=== PATIENT | female | born 1930 | race Caucasian/White ===

== ENCOUNTER 2016-07-29 12:16 | Inpatient (IN) | payer MEDICARE, OTHER ==
[2016-07-29] MEDS ORDERED: SODIUM CHLORIDE 0.9% 1,000 ML IV STA (13:44)
[2016-07-29 14:04] LABS: Basophils % (A) 0 %; CHCM 34.5; Eosinophils % (A) 0 %; HCT 39.4 % (34.0-46.0); HDW 2.76; HGB 13.3 gm/dL (11.4-16.0); Luc # (Auto) 0.15; Luc % (Auto) 2; Lymphocytes # (A) 0.4 k/uL (1.0-4.8); Lymphocytes % (A) 6 %; MCH 28.6 pg (25.0-35.0); MCHC 33.8 g/dL (31.0-37.0); MCV 84.5 fL (80.0-100.0); Mean Platelet Volume 7.4; Monocytes # (A) 0.4 k/uL (0-1.0); Monocytes % (A) 5 %; Neutrophils # (A) 5.7 k/uL (1.3-7.7); Neutrophils % (A) 86 %; RBC 4.67 m/uL (3.80-5.40); RDW 14.3 % (11.5-15.5); WBC 6.7 k/uL (3.8-10.6); WBC (Perox) 6.78
[2016-07-29 14:08] LABS: ALT 52 U/L (9-52); AST 43 U/L (14-36); Alkaline Phosphatase 69 U/L (38-126); Anion Gap 12 mmol/L; Blood Urea Nitrogen 17 mg/dL (7-17); Calcium 8.9 mg/dL (8.4-10.2); Carbon Dioxide 25 mmol/L (22-30); Chloride 96 mmol/L (98-107); Glucose 140 mg/dL (74-99); Non-African American GFR(MDRD) >60 (>60 ml/min/1.73 sqM); Potassium 3.8 mmol/L (3.5-5.1); Sodium 133 mmol/L (137-145); Total Bilirubin 1.5 mg/dL (0.2-1.3); Total Protein 6.8 g/dL (6.3-8.2)
--- NOTE | 2016-07-29 14:28 | CT ---
EXAMINATION TYPE: CT brain wo con DATE OF EXAM: 07/29/2016 2:19 PM COMPARISON: NONE HISTORY: Fall this morning, altered mental status CT DLP: 1036 mGycm Automated exposure control for dose reduction was used. FINDINGS: There is no acute intracranial hemorrhage, mass effect, or midline shift identified. Changes of chron ic sinusitis and vascular calcifications noted. There is extensive degenerative change. Periventricular low attenuation compatible with remote microv ascular ischemia. Calvarium intact. Hyperostosis noted. IMPRESSION: No acute intracranial hemorrhage, mass effect, or midline shift is seen. Severe sinusitis.
--- NOTE | 2016-07-29 14:39 | XR ---
EXAMINATION TYPE: XR chest 2V DATE OF EXAM: 07/29/2016 2:33 PM COMPARISON: 11/16/2014 TECHNIQUE: PA and lateral views submitted. HISTORY: Pain, dizziness FINDINGS: Coarsened interstitium and cardiomegaly are stable. Arthropathy of the shoulders and diffuse osteopen ia noted. No pneumothorax. Nonspecific subsegmental changes left lung base. Hypertrophic and degenerative nash e of the spine noted. IMPRESSION: 1. Correlate for chronic interstitial lung disease or pulmonary fibrosis 2. Left basilar atelectasis favored over infiltrate.
--- NOTE | 2016-07-29 14:41 | XR ---
EXAM TYPE: LUMBAR SPINE X RAY SERIES COMPARISON: NONE HISTORY: Pain TECHNIQUE: 4 views are submitted. FINDINGS: Diffuse osteopenia is seen with severe degenerative disc disease L-1-L2 and moderate changes at L2-L3 , L4-5 and L5-S1. Facet arthropathy at all levels with most marked changes seen at L4-5 and L5-S1 with a grade 1 crystal listhesis of L4 on L5. No compression deformities. Vascular calcification of the aorta noted. IMPRESSION: 1. Moderate severe multilevel degenerative disc disease and facet arthropathy with grade 1 anterolist hesis L4 on L5.
[2016-07-29 15:14] LABS: Appearance,Urine Cloudy (Clear); Bacteria,Urine Rare /hpf; Bilirubin,Urine Negative (Negative); Glucose,Urine (UA) Negative (Negative); Ketones,Urine Negative (Negative); Leukocyte Esterase,Urine Negative (Negative); Nitrite,Urine Negative (Negative); Particle Count 1991; Protein,Urine Trace (Negative); RBC,Urine 3 /hpf (0-5); Specific Gravity,Urine 1.014 (1.001-1.035); Squamous Epithelial Cell,Urine 3 /hpf (0-4); UA Billing (MACRO vs. MICRO) MICRO; WBC,Urine 2 /hpf (0-5)
--- NOTE | 2016-07-29 17:43 | ED ---
Dizziness HPI - General Chief Complaint: Dizziness Stated Complaint: Fall Time Seen by Provider: 07/29/16 13:36 Source: patient Mode of arrival: ambulatory Limitations: no limitations - History of Present Illness Initial Comments: Complaining about being dizzy for the last 3 days she fell this morning trying to move inside her house she also fell last night and now last night she fell she landed on her buttocks complaining about pain in the tailbone area at this dizziness is worse with moving as long as she states in the bed she is fine her feet when she tries to get up this with the dizziness kicks in also complaining about the headache she had a headache earlier today but now it has resolved no chest pain or shortness of breath no abdominal pain no nausea no vomiting, she does have a history of atrial fibrillation - Related Data Home Medications Medication Instructions Recorded Confirmed Albuterol Inhaler [Ventolin 2 puff INHALATION RT-Q6H PRN 11/16/14 07/29/16 Inhaler] Albuterol Nebulized [Ventolin 2.5 mg INHALATION RT-Q6H PRN 11/16/14 07/29/16 Nebulized] Montelukast [Singulair] 10 mg PO DAILY 11/16/14 07/29/16 Aspirin 81 mg PO DAILY 07/29/16 07/29/16 Hydrochlorothiazide [Hydrodiuril] 25 mg PO DAILY 07/29/16 07/29/16 Losartan Potassium [Cozaar] 100 mg PO DAILY 07/29/16 07/29/16 Nitroglycerin Sl Tabs [Nitrostat] 0.4 mg SUBLINGUAL Q5M PRN 07/29/16 07/29/16 Simvastatin [Zocor] 40 mg PO HS 07/29/16 07/29/16 Warfarin Sodium [Coumadin] 4 mg PO HS 07/29/16 07/29/16 Allergies Allergy/AdvReac Type Severity Reaction Status Date / Time Iodinated Contrast Media - Allergy Severe Rash/Hives Verified 07/29/16 13:10 Oral and Penicillins Allergy Unknown Verified 07/29/16 13:10 Review of Systems ROS Statement: Those systems with pertinent positive or pertinent negative responses have been documented in the HPI. ROS Other: All systems not noted in ROS Statement are negative. Past Medical History Past Medical History: COPD, Deep Vein Thrombosis (DVT), Eye Disorder, Hyperlipidemia, Hypertension, Myocardial Infarction (MO), Osteoarthritis (OA), Pneumonia, Pulmonary Embolus (PE) Additional Past Medical History / Comment(s): 6-3-15 ADMITTED TO [facility] WITH SOB- CHF. macular degeneration NEERU eyes,cataract rt eye, heart murmur,silent mi, rheumatic fever, eczema,psoriases, jannet age 20, polynePhritis age 7. after rt knee replacement and choley sx pt had dvt and pe.bronchitis Last Myocardial Infarction Date:: unk History of Any Multi-Drug Resistant Organisms: None Reported Past Surgical History: Cholecystectomy, Joint Replacement, Tonsillectomy Additional Past Surgical History / Comment(s): lt eye cataract removed has lens implant, after choley done had ercp(small tar) had neeru stents since removed, rt breast bx was positive for ca had lumpectomy and raditaion tx, d&c, total hysterectomy, neeru knee replacements. Past Anesthesia/Blood Transfusion Reactions: No Reported Reaction Past Psychological History: No Psychological Hx Reported Smoking Status: Former smoker Past Alcohol Use History: None Reported Additional Past Alcohol Use History / Comment(s): smoked 3-4 years but quit 1969 Past Drug Use History: None Reported - Past Family History Sister(s) Family Medical History: Cancer Additional Family Medical History / Comment(s): colon ca Father Family Medical History: CVA/TIA Additional Family Medical History / Comment(s): had a stroke in his 40's Mother Additional Family Medical History / Comment(s): glaucoma General Exam - General Exam Comments Initial Comments: General: The patient is awake and alert, in no distress, and does not appear acutely ill. Does look pale and tired him a GCS is 15 Skin: Skin is warm and dry and no rashes or lesions are noted. Eye: Pupils are equal, round and reactive to light, extra-ocular movements are intact; there is normal conjunctiva bilaterally. Ears, nose, mouth and throat: There are moist mucous membranes and no oral lesions. Exam is compatible with sinusitis Neck: The neck is supple, there is no tenderness Cardiovascular: There is a regular rate and rhythm. No murmur, rub or gallop is appreciated. Respiratory: To auscultation bilateral, decrease breath sounds bilaterally Gastrointestinal: Soft, non-distended, non-tender abdomen without masses or organomegaly noted. There is no rebound or guarding present. Bowel sounds are unremarkable. Back: There is no tenderness to palpation in the midline. There is no obvious deformity. Musculoskeletal: Normal ROM, no tenderness, There is no pedal edema. There is no calf tenderness or swelling. No cords were appreciated. Neurological: CN II-XII intact, Cranial nerves III through XII are intact. There are no obvious motor or sensory deficits. Coordination appears grossly intact. Speech is normal. Psychiatric: Cooperative, appropriate mood & affect, normal judgment. Limitations: no limitations Course Vital Signs 07/29/16 07/29/16 07/29/16 12:26 13:08 13:30 Temperature 98.0 F Pulse Rate 74 73 74 Pulse Rate [ Right Sitting] Pulse Rate [ Right Standing] Pulse Rate [ Right Supine] Respiratory 18 20 20 Rate Blood Pressure 170/77 143/74 148/76 Blood Pressure [Left Arm Sitting] Blood Pressure [Left Arm Standing] Blood Pressure [Left Arm Supine] O2 Sat by Pulse 98 98 98 Oximetry 07/29/16 07/29/16 07/29/16 14:00 14:49 16:00 Temperature Pulse Rate 73 67 Pulse Rate [ 87 Right Sitting] Pulse Rate [ 86 Right Standing] Pulse Rate [ 80 Right Supine] Respiratory 20 18 18 Rate Blood Pressure 143/74 163/67 Blood Pressure 139/69 [Left Arm Sitting] Blood Pressure 126/62 [Left Arm Standing] Blood Pressure 160/78 [Left Arm Supine] O2 Sat by Pulse 98 97 98 Oximetry EKG Findings - EKG Comments: EKG Findings:: EKG is atrial fibrillation ventricular rate is 80 OH interval is , QRS duration is 108 QT/QTc is 356/410 review of this EKG confirms atrial fibrillation, otherwise no ST elevation or ST depression noticed Medical Decision Making - Lab Data Result diagrams: 07/29/16 13:00 07/29/16 13:00 Lab Results 07/29/16 07/29/16 07/29/16 Range/Units 13:00 13:00 13:00 WBC 6.7 (3.8-10.6) k/uL RBC 4.67 (3.80-5.40) m/uL Hgb 13.3 (11.4-16.0) gm/dL Hct 39.4 (34.0-46.0) % MCV 84.5 (80.0-100.0) fL MCH 28.6 (25.0-35.0) pg MCHC 33.8 (31.0-37.0) g/dL RDW 14.3 (11.5-15.5) % Plt Count 551 H (150-450) k/uL Neutrophils % 86 % Lymphocytes % 6 % Monocytes % 5 % Eosinophils % 0 % Basophils % 0 % Neutrophils # 5.7 (1.3-7.7) k/uL Lymphocytes # 0.4 L (1.0-4.8) k/uL Monocytes # 0.4 (0-1.0) k/uL Eosinophils # 0.0 (0-0.7) k/uL Basophils # 0.0 (0-0.2) k/uL Sodium 133 L (137-145) mmol/L Potassium 3.8 (3.5-5.1) mmol/L Chloride 96 L (98-107) mmol/L Carbon Dioxide 25 (22-30) mmol/L Anion Gap 12 mmol/L BUN 17 (7-17) mg/dL Creatinine 0.81 (0.52-1.04) mg/dL Est GFR (MDRD) Af Amer >60 (>60 ml/min/1.73 sqM) Est GFR (MDRD) Non-Af >60 (>60 ml/min/1.73 sqM) Glucose 140 H (74-99) mg/dL Calcium 8.9 (8.4-10.2) mg/dL Total Bilirubin 1.5 H (0.2-1.3) mg/dL AST 43 H (14-36) U/L ALT 52 (9-52) U/L Alkaline Phosphatase 69 (38-126) U/L Troponin I 0.017 (0.000-0.034) ng/mL Total Protein 6.8 (6.3-8.2) g/dL Albumin 4.0 (3.5-5.0) g/dL Urine Color Urine Appearance (Clear) Urine pH (5.0-8.0) Ur Specific Butler (1.001-1.035) Urine Protein (Negative) Urine Glucose (UA) (Negative) Urine Ketones (Negative) Urine Blood (Negative) Urine Nitrate (Negative) Urine Bilirubin (Negative) Urine Urobilinogen (<2.0) mg/dL Ur Leukocyte Esterase (Negative) Urine RBC (0-5) /hpf Urine WBC (0-5) /hpf Ur Squamous Epith Cells (0-4) /hpf Urine Bacteria (None) /hpf 07/29/16 Range/Units 14:58 WBC (3.8-10.6) k/uL RBC (3.80-5.40) m/uL Hgb (11.4-16.0) gm/dL Hct (34.0-46.0) % MCV (80.0-100.0) fL MCH (25.0-35.0) pg MCHC (31.0-37.0) g/dL RDW (11.5-15.5) % Plt Count (150-450) k/uL Neutrophils % % Lymphocytes % % Monocytes % % Eosinophils % % Basophils % % Neutrophils # (1.3-7.7) k/uL Lymphocytes # (1.0-4.8) k/uL Monocytes # (0-1.0) k/uL Eosinophils # (0-0.7) k/uL Basophils # (0-0.2) k/uL Sodium (137-145) mmol/L Potassium (3.5-5.1) mmol/L Chloride (98-107) mmol/L Carbon Dioxide (22-30) mmol/L Anion Gap mmol/L BUN (7-17) mg/dL Creatinine (0.52-1.04) mg/dL Est GFR (MDRD) Af Amer (>60 ml/min/1.73 sqM) Est GFR (MDRD) Non-Af (>60 ml/min/1.73 sqM) Glucose (74-99) mg/dL Calcium (8.4-10.2) mg/dL Total Bilirubin (0.2-1.3) mg/dL AST (14-36) U/L ALT (9-52) U/L Alkaline Phosphatase (38-126) U/L Troponin I (0.000-0.034) ng/mL Total Protein (6.3-8.2) g/dL Albumin (3.5-5.0) g/dL Urine Color Yellow Urine Appearance Cloudy H (Clear) Urine pH 6.0 (5.0-8.0) Ur Specific Butler 1.014 (1.001-1.035) Urine Protein Trace H (Negative) Urine Glucose (UA) Negative (Negative) Urine Ketones Negative (Negative) Urine Blood Negative (Negative) Urine Nitrate Negative (Negative) Urine Bilirubin Negative (Negative) Urine Urobilinogen 3.0 (<2.0) mg/dL Ur Leukocyte Esterase Negative (Negative) Urine RBC 3 (0-5) /hpf Urine WBC 2 (0-5) /hpf Ur Squamous Epith Cells 3 (0-4) /hpf Urine Bacteria Rare H (None) /hpf Disposition Clinical Impression: Dizziness, Orthostatic hypotension, Sinusitis Disposition: ADMITTED IP TO THIS [facility] Condition: Good Referrals: Иван Chaparro MD [Primary Care Provider] - 1-2 days
[2016-07-29] MEDS ORDERED: NALOXONE 0.4 MG/ML 1 ML VIAL IV PRN (17:46)
[2016-07-29] MEDS ORDERED: ACETAMINOPHEN TAB 325 MG TAB PO PRN (17:46)
[2016-07-29] MEDS ORDERED: NITROGLYCERIN SL TABS 0.4 MG TAB SUBLINGUAL PRN (17:49)
[2016-07-29] MEDS ORDERED: ALBUTEROL INHALER 60 PUFF/8 GM INHALER INHALATION PRN (17:49)
[2016-07-29] MEDS ORDERED: LEVOFLOXACIN 500 MG TAB PO STA (17:51)
[2016-07-29] MEDS ORDERED: MECLIZINE 12.5 MG TAB PO STA (17:52)
[2016-07-29] MEDS ORDERED: MECLIZINE 12.5 MG TAB PO PRN (17:52)
[2016-07-29 21:08] LABS: INR 2.2 (<1.1); Prothrombin Time 20.9 sec (9.0-12.0)
[2016-07-29] MEDS ORDERED: ONDANSETRON 4 MG/2 ML VIAL IVP PRN (21:29)
[2016-07-29] MEDS: WARFARIN 2 MG TAB PO SCH (22:58)
[2016-07-29] MEDS: ATORVASTATIN 20 MG TAB PO SCH (23:00)
--- NOTE | 2016-07-30 07:42 | HP ---
DATE OF ADMISSION: CHIEF COMPLAINT: Weakness. This is an 86-year-old white female severely weak and had several episodes of vomiting and that she was unable to get out of bed. ( ) She was placed in the emergency room accordingly. After evaluation, they found that she was in A. fib with controlled rate and a questionable infiltrate in the left lower lung. She also had mild elevation of blood sugar of 140 and a normal urine. She has a past medical history of allergies to IODINE, POTASSIUM and PENICILLIN. Her medications include: 1. Coumadin 4 mg a day. 2. Fish oil 1000. 3. Aspirin 81. 4. Hydrochlorothiazide 25. 5. Losartan 100. 6. Simvastatin 40 mg. 7. Ventolin inhaler up to 4 times a day. 8. She takes Singulair 10. MEDICAL HISTORY: She has a long-standing history of COPD along with DVT, macular degeneration, hyperlipidemia, hypertension, osteoarthritis, pulmonary emboli and DVT x2. In 2014 she was admitted with shortness of breath and had a stent placed, coronary artery stent placed and was followed up by Dr. Brown. Surgical history is that of bilateral cataracts, right knee surgery, cholecystectomy. She also has had a history of many years ago of pulmonary fibrosis, which has actually resolved. She also has a past surgical history of also having had a tonsillectomy. She had a positive breast lumpectomy for CA of the breast and she had radiation followup including mammograms and PET scan that were negative. She is . She has a history of smoking for 3 to 4 years, but she stopped actually in 1968. There is a strong family history of cancer. REVIEW OF SYSTEMS: CARDIOPULMONARY: She has had some minimal shortness of breath, weakness. No chest pain, orthopnea. No paroxysmal nocturnal dyspnea. GI: No hematemesis. No hematochezia. No constipation. No diarrhea. GENITOURINARY: Within normal limits. NEUROMUSCULAR: Just basic aches and pains, but she is more hindered by her problem with her eyes. LABS: CBC, complete metabolic profile are within normal limits. EKG does show atrial fib now. By history, ( ) there is some history of atrial fib. I do not have anything immediately in front of me that ( ) that, but I will follow up with Dr. Brown. She does have some atrial fibrillation on her EKG. Chest x-ray does show a left basilar atelectasis versus possible ( ) history of chronic interstitial pneumonitis. ASSESSMENT: 1. Acute weakness of questionable etiology. 2. Questionable pneumonia. 3. Pulmonary fibrosis. 4. Atrial fibrillation, questionable new versus old. Will consult Dr. Brown. 5. History of coronary artery disease with stent placement back in November 2014. 6. Previous pulmonary emboli with deep venous thrombosis x2. 7. Severe macular degeneration. The patient is blind. 8. Hypertension, which has been stable. 9. Hyperlipidemia. 10. ( ) chronic obstructive pulmonary disease. ( ) Please refer to my orders.
[2016-07-30] MEDS: LOSARTAN 50 MG TAB PO SCH (08:55)
[2016-07-30] MEDS: ASPIRIN 81 MG CHEW PO SCH (08:55)
[2016-07-30] MEDS: MONTELUKAST 10 MG TAB PO SCH (08:56)
[2016-07-30] MEDS: HYDROCHLOROTHIAZIDE 25 MG TAB PO SCH (11:05)
--- NOTE | 2016-07-30 12:51 | P.CRDCN ---
History of Present Illness Consult date: 07/30/16 Chief complaint: Weakness History of present illness: This is a pleasant 86-year-old female patient who sees Dr. Estrada as an outpatient with a past medical history significant for coronary artery disease and prior coronary artery stenting, chronic respiratory failure, chronic obstructive pulmonary disease, history of DVT/PE, as well as multiple comorbid conditions was admitted to the hospital because she was not feeling well. The patient has been feeling fatigued and tired and she has been falling a lot lately. She stated that no syncope associated was a folding. She does not recall having any feeling of dizziness or lightheadedness. The patient was diagnosed with a pneumonia and she was started on antibiotic. We get involved in the care of the patient because an EKG was performed and showed atrial fibrillation/atrial flutter with controlled heart rate. The patient is not on any AV marly justen agents. She is on anticoagulation but that is for the PE/DVT. On physical examination I was able to hear a significant murmur consistent with aortic stenosis murmur. At this point and in view of the controlled heart rate I would not recommend starting the patient on any AV marly justen agents. The heart rate has been under good control with the A. fib. She is on anticoagulation was, in which we will continue. I will obtain an echocardiogram was Doppler to assess the LV function and to assess for severity of the aortic stenosis. Past Medical History Past Medical History: COPD, Deep Vein Thrombosis (DVT), Eye Disorder, Hyperlipidemia, Hypertension, Myocardial Infarction (CO), Osteoarthritis (OA), Pneumonia, Pulmonary Embolus (PE) Additional Past Medical History / Comment(s): CHF, patient denies valve replacement so stents placed. macular degeneration NEERU eyes,cataract rt eye, heart murmur,silent mi, rheumatic fever, eczema,psoriases, mono age 20, polynePhritis age 7. Last Myocardial Infarction Date:: unk History of Any Multi-Drug Resistant Organisms: None Reported Past Surgical History: Cholecystectomy, Joint Replacement, Tonsillectomy Additional Past Surgical History / Comment(s): lt eye cataract removed has lens implant, after alexa done had ercp(small tar) had neeru stents since removed, rt breast bx was positive for ca had lumpectomy and raditaion tx, d&c, total hysterectomy, neeru knee replacements. Past Anesthesia/Blood Transfusion Reactions: No Reported Reaction Past Psychological History: No Psychological Hx Reported Smoking Status: Former smoker Past Alcohol Use History: None Reported Additional Past Alcohol Use History / Comment(s): smoked 3-4 years but quit 1969 Past Drug Use History: None Reported - Past Family History Sister(s) Family Medical History: Cancer Additional Family Medical History / Comment(s): colon ca Father Family Medical History: CVA/TIA Additional Family Medical History / Comment(s): had a stroke in his 40's Mother Additional Family Medical History / Comment(s): glaucoma Medications and Allergies Home Medications Medication Instructions Recorded Confirmed Type Albuterol Inhaler [Ventolin 2 puff INHALATION RT-Q6H PRN 11/16/14 07/29/16 History Inhaler] Albuterol Nebulized [Ventolin 2.5 mg INHALATION RT-Q6H PRN 11/16/14 07/29/16 History Nebulized] Montelukast [Singulair] 10 mg PO DAILY 11/16/14 07/29/16 History Aspirin 81 mg PO DAILY 07/29/16 07/29/16 History Hydrochlorothiazide [Hydrodiuril] 25 mg PO DAILY 07/29/16 07/29/16 History Losartan Potassium [Cozaar] 100 mg PO DAILY 07/29/16 07/29/16 History Nitroglycerin Sl Tabs [Nitrostat] 0.4 mg SUBLINGUAL Q5M PRN 07/29/16 07/29/16 History Simvastatin [Zocor] 40 mg PO HS 07/29/16 07/29/16 History Warfarin Sodium [Coumadin] 4 mg PO HS 07/29/16 07/29/16 History Allergies Allergy/AdvReac Type Severity Reaction Status Date / Time Iodinated Contrast Media - Allergy Severe Rash/Hives Verified 07/29/16 13:10 Oral and Penicillins Allergy Unknown Verified 07/29/16 13:10 Physical Exam Vitals: Vital Signs Temp Pulse Pulse Pulse Resp BP BP 07/30/16 08:52 07/30/16 07:00 97.1 F L 85 18 07/29/16 23:00 97.8 F 89 16 07/29/16 20:00 98.5 F 90 16 158/94 07/29/16 18:44 98.1 F 07/29/16 18:42 82 18 138/64 BP Pulse Ox 07/30/16 08:52 95 07/30/16 07:00 124/72 95 07/29/16 23:00 154/78 94 L 07/29/16 20:00 93 L 07/29/16 18:44 07/29/16 18:42 98 Intake and Output 07/29/16 07/30/16 07/30/16 22:59 06:59 14:59 Other: Voiding Method Bedside Commode Bedside Commode # Voids 1 1 - Constitutional General appearance: no acute distress - Respiratory Respiratory: bilateral: diminished - Cardiovascular Rhythm: irregularly irregular Heart sounds: normal: S1, S2 Abnormal Heart Sounds: systolic murmur Results 07/29/16 13:00 07/29/16 13:00 Current Medications Generic Name Dose Route Start Last Admin Trade Name Freq PRN Reason Stop Dose Admin Acetaminophen 650 mg 07/29/16 17:46 Tylenol Tab PO Q6HR PRN Mild Pain or Fever > 100.5 Albuterol Sulfate 2.5 mg 07/29/16 17:49 Ventolin Nebulized INHALATION RT-Q6H PRN Shortness Of Breath Aspirin 81 mg 07/30/16 09:00 07/30/16 08:55 Aspirin PO 81 mg DAILY SANDRA Administration Atorvastatin Calcium 20 mg 07/29/16 21:00 07/29/16 23:00 Lipitor PO 20 mg HS SANDRA Administration Hydrochlorothiazide 25 mg 07/30/16 09:00 07/30/16 11:05 Hydrodiuril PO Not Given DAILY SANDRA Levofloxacin 500 mg 07/30/16 18:00 Levaquin PO Q24H SANDRA Losartan Potassium 100 mg 07/30/16 09:00 07/30/16 08:55 Cozaar PO 100 mg DAILY SANDRA Administration Meclizine HCl 12.5 mg 07/29/16 17:52 Antivert PO BID PRN Vertigo Montelukast Sodium 10 mg 07/30/16 09:00 07/30/16 08:56 Singulair PO 10 mg DAILY SANDRA Administration Naloxone HCl 0.2 mg 07/29/16 17:46 Narcan IV Q2M PRN Opioid Reversal Nitroglycerin 0.4 mg 07/29/16 17:49 Nitrostat SUBLINGUAL Q5M PRN Chest Pain Ondansetron HCl 4 mg 07/29/16 21:29 Zofran IVP Q8HR PRN Nausea And Vomiting Warfarin Sodium 4 mg 07/29/16 21:45 07/29/16 22:58 Coumadin PO 4 mg HS SANDRA Administration Intake and Output 07/29/16 07/30/16 07/30/16 22:59 06:59 14:59 Other: Voiding Method Bedside Commode Bedside Commode # Voids 1 1 Assessment and Plan Plan: Assessment #1 generalized weakness and fatigue #2 recurrent falling #3 atrial fibrillation with controlled heart rate #4 coronary artery disease with prior coronary artery stenting #5 history of DVT/PE Plan #1 hold on any AV marly justen agents #2 monitor the heart rate and rule out any sinus pauses as an etiology for her falling #3 obtain an echocardiogram was Doppler to assess for aortic stenosis #4 continue anticoagulation with Coumadin #5 follow-up with the patient
[2016-07-30] MEDS ORDERED: LEVOFLOXACIN 500 MG TAB PO SCH (18:00)
[2016-07-30] MEDS: ATORVASTATIN 20 MG TAB PO SCH (21:37)
[2016-07-30] MEDS: WARFARIN 2 MG TAB PO SCH (21:37)
[2016-07-31] MEDS: ALBUTEROL NEBULIZED 2.5 MG/3 ML INHALATION PRN (08:17)
[2016-07-31] MEDS: LOSARTAN 50 MG TAB PO SCH (08:51)
[2016-07-31] MEDS: ASPIRIN 81 MG CHEW PO SCH (08:51)
[2016-07-31] MEDS: MONTELUKAST 10 MG TAB PO SCH (08:51)
[2016-07-31] MEDS: HYDROCHLOROTHIAZIDE 25 MG TAB PO SCH (08:52)
[2016-07-31 09:15] LABS: Aty Lym Flag Moderate; CH 28.8; CHCM 33.9; HCT 36.5 % (34.0-46.0); HDW 2.86; HGB 11.8 gm/dL (11.4-16.0); MCH 27.7 pg (25.0-35.0); MCHC 32.3 g/dL (31.0-37.0); MCV 85.5 fL (80.0-100.0); Mean Platelet Volume 9.2; RBC 4.26 m/uL (3.80-5.40); RDW 14.3 % (11.5-15.5); WBC (Perox) 5.29
[2016-07-31 09:28] LABS: ALT 46 U/L (9-52); AST 39 U/L (14-36); Alkaline Phosphatase 58 U/L (38-126); Anion Gap 7 mmol/L; Blood Urea Nitrogen 15 mg/dL (7-17); Calcium 8.4 mg/dL (8.4-10.2); Carbon Dioxide 31 mmol/L (22-30); Chloride 98 mmol/L (98-107); Glucose 98 mg/dL (74-99); Potassium 3.2 mmol/L (3.5-5.1); Sodium 136 mmol/L (137-145); Total Bilirubin 1.4 mg/dL (0.2-1.3); Total Protein 5.7 g/dL (6.3-8.2)
[2016-07-31 09:45] LABS: Non-African American GFR(MDRD) >60 (>60 ml/min/1.73 sqM)
--- NOTE | 2016-07-31 09:48 | ECHOF ---
Referral Reason: MEASUREMENTS -------- HEIGHT: 167.6 cm WEIGHT: 95.7 kg BP: 124/72 RVIDd: 2.9 cm (< 3.3) IVSd: 1.4 cm (0.6 - 1.1) LVIDd: 4.1 cm (3.9 - 5.3) LVPWd: 1.3 cm (0.6 - 1.1) IVSs: 1.8 cm LVIDs: 2.9 cm LVPWs: 1.7 cm LA Diam: 3.8 cm (2.7 - 3.8) LAESV Index (A-L): 48.08 ml/m Ao Diam: 2.4 cm (2.0 - 3.7) AV Cusp: 1.0 cm (1.5 - 2.6) LA Diam: 3.4 cm (2.7 - 3.8) MV EXCURSION: 13.536 mm (> 18.000) MV EF SLOPE: 59 mm/s (70 - 150) EPSS: 0.3 cm MV E David: 1.50 m/s MV DecT: 145 ms MV A David: 0.44 m/s MV E/A Ratio: 3.44 AV maxP.05 mmHg AV meanP.92 mmHg RAP: 5.00 mmHg RVSP: 41.65 mmHg FINDINGS -------- Undetermined rhythm. This was a technically good study. There is moderate concentric left ventricular hypertrophy. Overall left ventricular systolic function is normal with, an EF between 55 - 60 %. The right ventricle is normal in size. LA is severely dilated >40 ml/m2 The right atrial size is normal. Aortic valve is trileaflet and is moderately thickened. There is severe aortic stenosis present. Peak/mean gradient across the Aortic Valve is 76.05mmHg / 46.92mmHg. The mitral valve leaflets are mildly thickened. Mild mitral annular calcification present. Mild mitral regurgitation is present. Mild tricuspid regurgitation present. There is mild pulmonary hypertension. The right ventricular systolic pressure, as measured by Doppler, is 41.65mmHg. Trace/mild (physiologic) pulmonic regurgitation. The aortic root size is normal. Normal inferior vena cava with normal inspiratory collapse consistent with estimated right atrial pressure of 5 mmHg. Echo free space may represent effusion or a pericardial fat pad. CONCLUSIONS -------- 1. Undetermined rhythm. 2. Peak/mean gradient across the Aortic Valve is 76.05mmHg / 46.92mmHg. 3. The mitral valve leaflets are mildly thickened. 4. Mild mitral annular calcification present. 5. Mild mitral regurgitation is present. 6. Mild tricuspid regurgitation present. 7. There is mild pulmonary hypertension. 8. The right ventricular systolic pressure, as measured by Doppler, is 41.65mmHg. 9. Trace/mild (physiologic) pulmonic regurgitation. 10. The aortic root size is normal. 11. Echo free space may represent effusion or a pericardial fat pad. 12. This was a technically good study. 13. There is moderate concentric left ventricular hypertrophy. 14. Overall left ventricular systolic function is normal with, an EF between 55 - 60 %. 15. The right ventricle is normal in size. 16. LA is severely dilated >40 ml/m2 17. The right atrial size is normal. 18. Aortic valve is trileaflet and is moderately thickened. 19. There is severe aortic stenosis present. PEDIATRIC PHYSICIAN: Guera Andrew RDCS
[2016-07-31 09:50] LABS: Add Differential Manual Differential
[2016-07-31 09:52] LABS: Manual Review Performed; Nucleated Red Blood Cells 0 /100 WBC (0-0); Total Cells Counted 100
--- NOTE | 2016-07-31 10:58 | P.PN ---
Subjective Principal diagnosis: Frequent falls This is a pleasant 86-year-old female patient who sees Dr. Estrada as an outpatient with a past medical history significant for CAD and prior coronary artery stenting, chronic respiratory failure, COPD, history of DVT/PE, as well as multiple comorbid conditions was admitted to the hospital because she was not feeling well. The patient has been feeling fatigued and tired and she has been falling a lot lately. She stated that no syncope associated with falling. She does not recall having any feeling of dizziness or lightheadedness. We get involved in the care of the patient because an EKG was performed and showed atrial fibrillation/atrial flutter with controlled heart rate. The patient is not on any AV marly justen agents. She is on anticoagulation but that is for the PE/DVT. On physical examination I was able to hear a significant murmur consistent with aortic stenosis murmur. She underwent an echocardiogram which showed preserved LV function with evidence of severity aortic stenosis. At this point and in view of the controlled heart rate I would not recommend starting the patient on any AV marly justen agents. The heart rate has been under good control with the A. fib. She is on anticoagulation was, in which we will continue. Overall and in view of the patient age, she is not a candidate to have any aortic valve replacement or intervention on the aortic valve. Objective - Vital Signs Vital signs: Vital Signs Temp 97.0 F L 07/31/16 07:00 Pulse 62 07/31/16 08:17 Resp 24 07/31/16 07:00 BP 142/69 07/31/16 07:00 Pulse Ox 95 07/31/16 08:17 Intake & Output 07/30/16 07/31/16 07/31/16 18:59 06:59 18:59 Intake Total 480 300 120 Balance 480 300 120 Weight 100 kg Intake: Oral 480 300 120 Other: Voiding Method Bedside Commode # Voids 2 1 # Bowel Movements 0 - Constitutional General appearance: Present: no acute distress - Respiratory Respiratory: bilateral: diminished - Labs CBC & Chem 7: 07/31/16 08:56 07/31/16 08:56 Labs: Abnormal Lab Results - Last 24 Hours (Table) 07/31/16 07/31/16 07/31/16 Range/Units 08:56 08:56 08:56 Lymphocytes # (Manual) 0.3 L (1.0-4.8) k/uL Monocytes # (Manual) 1.2 H (0-1.0) k/uL PT 29.0 H (9.0-12.0) sec Sodium 136 L (137-145) mmol/L Potassium 3.2 L (3.5-5.1) mmol/L Carbon Dioxide 31 H (22-30) mmol/L Total Bilirubin 1.4 H (0.2-1.3) mg/dL AST 39 H (14-36) U/L Total Protein 5.7 L (6.3-8.2) g/dL Albumin 3.1 L (3.5-5.0) g/dL Assessment and Plan Plan: Assessment #1 generalized weakness and fatigue #2 recurrent falling #3 atrial fibrillation with controlled heart rate #4 coronary artery disease with prior coronary artery stenting #5 history of DVT/PE #6 severity aortic stenosis Plan #1 monitor the heart rate and rule out any sinus pauses as an etiology for her falling #2 continue anticoagulation with Coumadin #3 follow-up with the patient
[2016-07-31] MEDS ORDERED: Potassium Replacement Protocol 1 EACH MISC MISCELLANE PRN (12:32)
[2016-07-31] MEDS: POTASSIUM CHLORIDE ER 20 MEQ TAB.ER PO SCH ×2 (12:52→14:08)
--- NOTE | 2016-07-31 12:55 | P.PN ---
Subjective Principal diagnosis: Pneumonia Patient is an 86-year-old white female presenting to the hospital with complaints of weakness, dizziness and one episode of falling prior to admission. Patient was found to have evidence of left lower lobe pneumonia, community-acquired. Patient was also noted to have atrial fibrillation with controlled ventricular rate. Patient has been started on IV antibiotics in the form of Levaquin. Patient has been evaluated by Dr. Monsalve from cardiology service who is recommending continuation of Coumadin for anticoagulation. Echocardiogram with Doppler shows preserved ventricular systolic function with an EF between 55-60%; severe aortic stenosis; and mild pulmonary hypertension. Upon examination, patient reports feeling well. Denies chills, sweats, nausea, vomiting, increased shortness of breath, chest pain, abdominal pain, constipation or diarrhea. Patient states she ate approximately half of her breakfast. Patient did get up to the commode with assist and is urinating without difficulty. Patient was evaluated by physical therapy yesterday who is recommending subacute rehabilitation to increase functional mobility prior to returning home. Objective - Vital Signs Vital signs: Vital Signs Temp 97.0 F L 07/31/16 07:00 Pulse 62 07/31/16 08:17 Resp 24 07/31/16 07:00 BP 142/69 07/31/16 07:00 Pulse Ox 95 07/31/16 08:17 Intake & Output 07/30/16 07/31/16 07/31/16 18:59 06:59 18:59 Intake Total 480 300 120 Balance 480 300 120 Weight 100 kg Intake: Oral 480 300 120 Other: Voiding Method Bedside Commode # Voids 2 1 2 # Bowel Movements 0 0 - Exam GENERAL: Pt awake and alert, well-appearing, well-nourished, and in no acute distress. HEAD: Atraumatic, normocephalic. EYES: Pupils equal and round. Sclera anicteric, conjunctiva are normal. ENT: Oropharynx clear without exudates. Moist mucous membranes. NECK:Supple without lymphadenopathy or JVD. LUNGS: Breath sounds with basilar crackles to left lower lobe. No wheezes or rhonchi. HEART: Heart S1, S2, no S3 or S4. Irregularly irregular. Systolic murmur. ABDOMEN: Soft, morbidly obese, nontender, nondistended, normoactive bowel sounds. No guarding. EXTREMITIES: 2+ peripheral pulses. No edema. No calf tenderness. NEUROLOGICAL: Pt oriented x 3. No focal deficits. Strength and sensation grossly intact. PSYCH: Normal mood, normal affect. SKIN: Warm, dry, intact. Normal turgor. No rashes or lesions. - Labs CBC & Chem 7: 07/31/16 08:56 07/31/16 08:56 Labs: Abnormal Lab Results - Last 24 Hours (Table) 07/31/16 07/31/16 07/31/16 Range/Units 08:56 08:56 08:56 Lymphocytes # (Manual) 0.3 L (1.0-4.8) k/uL Monocytes # (Manual) 1.2 H (0-1.0) k/uL PT 29.0 H (9.0-12.0) sec Sodium 136 L (137-145) mmol/L Potassium 3.2 L (3.5-5.1) mmol/L Carbon Dioxide 31 H (22-30) mmol/L Total Bilirubin 1.4 H (0.2-1.3) mg/dL AST 39 H (14-36) U/L Total Protein 5.7 L (6.3-8.2) g/dL Albumin 3.1 L (3.5-5.0) g/dL Assessment and Plan Plan: Impression: 1. Acute weakness and lightheadedness with fall, present on admission 2. Left lower lobe pneumonia, community-acquired. 3. Severe aortic stenosis. 4. Atrial fibrillation with controlled heart rate, questionable new versus old. 5. Coronary artery disease with history of coronary artery stenting in November 2014. 6. History of pulmonary emboli with deep venous thrombosis 2 on anticoagulation in the form of Coumadin. 7. Pulmonary fibrosis. 8. Severe macular degeneration. Patient is blind. 9. Hypertension. 10. Hyperlipidemia. 11. Chronic obstructive pulmonary disease. 12. Hypokalemia. Plan: Continue to monitor patient. Maintain fall precautions. Continue current medications. Continue to follow with cardiology service. At this time, patient is not a candidate for aortic valve repair or replacement. Replace potassium per protocol. Repeat CBC, BMP, PT/INR in a.m. The above impression and plan have been discussed and directed by Dr. Chaparro. Grazyna MELARA acting as scribe for Dr. Chaparro.
[2016-07-31] MEDS ORDERED: LEVOFLOXACIN 250 MG TAB PO SCH (18:00)
[2016-07-31] MEDS: WARFARIN 2 MG TAB PO SCH (20:00)
[2016-07-31] MEDS: ATORVASTATIN 20 MG TAB PO SCH (20:01)
[2016-08-01 01:22] VITALS: TEMP 97
[2016-08-01 07:54] VITALS: BP 134/74; RESP 20
[2016-08-01] MEDS: ASPIRIN 81 MG CHEW PO SCH (08:20)
[2016-08-01] MEDS: LOSARTAN 50 MG TAB PO SCH (08:20)
[2016-08-01] MEDS: HYDROCHLOROTHIAZIDE 25 MG TAB PO SCH (08:20)
[2016-08-01] MEDS: MONTELUKAST 10 MG TAB PO SCH (08:20)
[2016-08-01] MEDS: ALBUTEROL NEBULIZED 2.5 MG/3 ML INHALATION PRN (08:41)
[2016-08-01 08:45] VITALS: PULSE 70
[2016-08-01 08:53] LABS: INR 3.2 (<1.1); Prothrombin Time 31.1 sec (9.0-12.0)
[2016-08-01 09:03] LABS: Anion Gap 10 mmol/L; Blood Urea Nitrogen 17 mg/dL (7-17); Calcium 8.9 mg/dL (8.4-10.2); Carbon Dioxide 28 mmol/L (22-30); Chloride 100 mmol/L (98-107); Glucose 116 mg/dL (74-99); Non-African American GFR(MDRD) >60 (>60 ml/min/1.73 sqM); Potassium 4.3 mmol/L (3.5-5.1); Sodium 138 mmol/L (137-145)
[2016-08-01 09:21] LABS: Basophils % (A) 1 %; CHCM 33.2; Eosinophils % (A) 1 %; HCT 38.8 % (34.0-46.0); HDW 2.81; HGB 12.7 gm/dL (11.4-16.0); Luc # (Auto) 0.16; Luc % (Auto) 4; Lymphocytes # (A) 0.5 k/uL (1.0-4.8); Lymphocytes % (A) 13 %; MCH 28.8 pg (25.0-35.0); MCHC 32.8 g/dL (31.0-37.0); MCV 87.8 fL (80.0-100.0); Mean Platelet Volume 8.9; Monocytes # (A) 0.4 k/uL (0-1.0); Monocytes % (A) 9 %; Neutrophils # (A) 2.9 k/uL (1.3-7.7); Neutrophils % (A) 72 %; RBC 4.42 m/uL (3.80-5.40); RDW 14.1 % (11.5-15.5); WBC (Perox) 4.04
--- NOTE | 2016-08-01 13:16 | P.PN ---
Progress Note - Text This is a pleasant 86-year-old female patient who sees Dr. Estrada as an outpatient with a past medical history significant for CAD and prior coronary artery stenting, chronic respiratory failure, COPD, history of DVT/PE, as well as multiple comorbid conditions was admitted to the hospital because she was not feeling well. The patient has been feeling fatigued and tired and she has been falling a lot lately. She stated that no syncope associated with falling. She does not recall having any feeling of dizziness or lightheadedness. We get involved in the care of the patient because an EKG was performed and showed atrial fibrillation/atrial flutter with controlled heart rate. The patient is not on any AV marly justen agents. She is on anticoagulation but that is for the PE/DVT. On physical examination I was able to hear a significant murmur consistent with aortic stenosis murmur. She underwent an echocardiogram which showed preserved LV function with evidence of severity aortic stenosis. At this point and in view of the controlled heart rate I would not recommend starting the patient on any AV marly justen agents. The heart rate has been under good control with the A. fib. She is on anticoagulation was, in which we will continue. Overall and in view of the patient age, she is not a candidate to have any aortic valve replacement or intervention on the aortic valve.
--- NOTE | 2016-09-15 20:51 | DS ---
DATE OF ADMISSION: 07/31/2016 DATE OF DISCHARGE: 08/01/2016 DISCHARGE DIAGNOSES: 1. Chronic obstructive pulmonary disease. 2. History of deep venous thrombosis and pulmonary embolism. 3. Prior coronary artery stenting. 4. Chronic respiratory failure along with previous chronic obstructive pulmonary disease and pulmonary fibrosis. 5. Atrial fibrillation/flutter with a controlled heart rate. She also has a well preserved left ventricular function but evidence of severe aortic stenosis but nonoperable. 6. Community-acquired left lower lobe pneumonia. An 86-year-old white female, severely weak and had several episodes of vomiting, unable to get out of bed. At that period she was brought to the emergency room and found to be in controlled atrial fibrillation and questionable infiltrate in the left lower lung. At that time she was placed in the hospital and started on antibiotics for pneumonia, pulmonary fibrosis treatment, atrial fibrillation consultation with cardiology and treatment. She continued to improve and her weakness resolved. It was felt that the left lower lobe pneumonia was probably community-acquired and that she had aortic stenosis that was severe. Her atrial fibrillation was taken care of aggressively. She had some hypokalemia and that was also treated here accordingly. Her medications were within normal limits. While she was here, she had severe back pain. Lumbar spine showed some grade 1 anterior listhesis of the L4-5 and some moderate disk disease. Echocardiogram showed severe aortic stenosis. On 07/22/2016 she felt well enough that she was discharged home. She was continued on albuterol 2 every 6 hours for updraft, aspirin 81 mg a day, hydrochlorothiazide daily, Cozaar 100 mg daily, Singulair 10, and simvastatin 40. She was to continue with her Coumadin at this period of time, which was at 4 mg a day, and levofloxacin 500 for a week. She was to follow up with me in a week, she had my emergency number in case she needed me. Her activity is very limited because of her severe macular degeneration. I had a long talk with her and also with Dr. Monsalve about her severe aortic stenosis. It was agreed upon that her pulmonary condition alone, along with her age, would make her a non-candidate for aortic stenosis repair. Other than that, the patient was explained the procedure. Accordingly, she absolutely refused to continue it. She is still at high risk of pulmonary emboli due to her 2 times previous DVT, along with previous aortic stenosis. Her nutrition has been good. Again, I warned her on overeating due to her BMI higher than 35. She does walk in the house even though she cannot see well, just because she knows were all the furniture is situated. Her mental status is stable, there is no depression. She is alert, well oriented to person, place, and thing and very sharp to answer questions for her age. She does have good family support. Her prognosis at this time is still good.
== END 2016-08-01 13:03 | disposition home or self-care (01) | DRG 308 ==
LOC: EC 12:16 → 5MS5E 17:46 → 4MS4W 19:07 → OBSVTOIN 07-31 18:27
PROVIDERS: ADMIT Family Medicine; ATTEND Family Medicine
DX: I48.91 Unspecified atrial fibrillation (principal); J18.9 Pneumonia, unspecified organism; J96.10 Chronic respiratory failure, unspecified whether with hypoxia or hypercapnia; I11.0 Hypertensive heart disease with heart failure; J44.0 Chronic obstructive pulmonary disease with (acute) lower respiratory infection; I27.2 Other secondary pulmonary hypertension; I50.9 Heart failure, unspecified; I48.92 Unspecified atrial flutter; J84.10 Pulmonary fibrosis, unspecified; I35.0 Nonrheumatic aortic (valve) stenosis; I25.10 Atherosclerotic heart disease of native coronary artery without angina pectoris; I25.2 Old myocardial infarction; H35.30 Unspecified macular degeneration; H54.0 Blindness, both eyes; E78.5 Hyperlipidemia, unspecified; M19.90 Unspecified osteoarthritis, unspecified site; H26.9 Unspecified cataract; L30.9 Dermatitis, unspecified; E87.6 Hypokalemia; R29.6 Repeated falls; I95.1 Orthostatic hypotension; Z90.49 Acquired absence of other specified parts of digestive tract; Z95.5 Presence of coronary angioplasty implant and graft; Z86.718 Personal history of other venous thrombosis and embolism; Z86.711 Personal history of pulmonary embolism; Z87.891 Personal history of nicotine dependence; Z91.041 Radiographic dye allergy status; Z96.653 Presence of artificial knee joint, bilateral; Z79.01 Long term (current) use of anticoagulants; Z79.82 Long term (current) use of aspirin; Z98.42 Cataract extraction status, left eye; Z96.1 Presence of intraocular lens; Z85.3 Personal history of malignant neoplasm of breast; Z92.3 Personal history of irradiation; Z79.899 Other long term (current) drug therapy
CPT/HCPCS: 36415; 70450; 71020; 72110; 80048; 80053; 81001; 84484; 85025; 85610; 93005; 93306; 94640; 94760; 96360; 96361; 96374; 99285

== ENCOUNTER 2017-02-07 13:50 | Inpatient (IN) | payer MEDICARE, OTHER ==
[2017-02-07] MEDS ORDERED: SODIUM CHLORIDE 0.9% 500 ML IV STA (14:18)
[2017-02-07 14:48] LABS: Basophils % (A) 0 %; CH 28.6; CHCM 34.4; Eosinophils % (A) 1 %; HCT 41.4 % (34.0-46.0); HDW 2.73; HGB 13.7 gm/dL (11.4-16.0); Luc # (Auto) 0.08; Luc % (Auto) 2; Lymphocytes # (A) 0.4 k/uL (1.0-4.8); Lymphocytes % (A) 12 %; MCH 27.8 pg (25.0-35.0); MCHC 33.2 g/dL (31.0-37.0); MCV 83.6 fL (80.0-100.0); Mean Platelet Volume 8.1; Monocytes # (A) 0.2 k/uL (0-1.0); Monocytes % (A) 4 %; Neutrophils # (A) 2.9 k/uL (1.3-7.7); Neutrophils % (A) 81 %; RBC 4.95 m/uL (3.80-5.40); RDW 15.6 % (11.5-15.5); WBC 3.5 k/uL (3.8-10.6); WBC (Perox) 3.72
[2017-02-07 14:55] LABS: INR 2.1 (<1.2); Prothrombin Time 19.8 sec (9.0-12.0)
--- NOTE | 2017-02-07 14:56 | XR ---
EXAMINATION TYPE: XR chest 2V DATE OF EXAM: 02/07/2017 COMPARISON: 07/29/2016 TECHNIQUE: PA and lateral views submitted. HISTORY: Weakness FINDINGS: Degenerative change of the spine. Heart is enlarged and there is bilateral areas of consolidation wit h small left effusion. Central interstitial pattern noted. Arthropathy of the shoulders. Underlying COPD suggested. IMPRESSION: 1. Left lower lobe infiltrate with small bilateral effusions. Correlate for CHF.
[2017-02-07 14:59] LABS: ALT 54 U/L (9-52); AST 55 U/L (14-36); Alkaline Phosphatase 73 U/L (38-126); Anion Gap 8 mmol/L; Blood Urea Nitrogen 13 mg/dL (7-17); Calcium 8.7 mg/dL (8.4-10.2); Carbon Dioxide 24 mmol/L (22-30); Chloride 97 mmol/L (98-107); Glucose 120 mg/dL (74-99); Magnesium 1.8 mg/dL (1.6-2.3); Non-African American GFR(MDRD) >60 (>60 ml/min/1.73 sqM); Potassium 4.1 mmol/L (3.5-5.1); Sodium 129 mmol/L (137-145); Total Bilirubin 1.3 mg/dL (0.2-1.3); Total Protein 6.8 g/dL (6.3-8.2)
[2017-02-07] MEDS ORDERED: SODIUM CHLORIDE 0.9% 1,000 ML IV SCH (16:15)
[2017-02-07] MEDS ORDERED: ONDANSETRON 4 MG/2 ML VIAL IVP PRN (16:41)
[2017-02-07] MEDS ORDERED: ACETAMINOPHEN TAB 325 MG TAB PO PRN (16:41)
[2017-02-07] MEDS ORDERED: NALOXONE 0.4 MG/ML 1 ML VIAL IV PRN (16:41)
[2017-02-07 16:44] LABS: Appearance,Urine Clear (Clear); Bilirubin,Urine Negative (Negative); Glucose,Urine (UA) Negative (Negative); Ketones,Urine 1+ (Negative); Leukocyte Esterase,Urine Negative (Negative); Nitrite,Urine Negative (Negative); PH, Urine 6.5 (5.0-8.0); Protein,Urine Trace (Negative); Specific Gravity,Urine 1.009 (1.001-1.035); UA Billing (MACRO vs. MICRO) CHEM; Urobilinogen,Urine <2.0 mg/dL (<2.0)
--- NOTE | 2017-02-07 16:55 | ED ---
General Adult HPI - General Chief complaint: Nausea/Vomiting/Diarrhea Stated complaint: Weakness Time Seen by Provider: 02/07/17 13:52 Source: patient, EMS, RN notes reviewed, old records reviewed Mode of arrival: EMS Limitations: no limitations - History of Present Illness Initial comments: 87-year-old female presenting with chief complaint of generalized weakness and nausea. Patient reports she had 3 episodes of nausea with no vomiting. She currently denies any nausea, she was given Zofran by EMS prior to arrival. Denies any diarrhea. Denies abdominal pain. Denies chest pain or shortness of breath. Denies palpitations. Denies dysuria. Denies any focal weakness. Denies rectal bleeding. Patient does have past medical history diabetes, CAD status post stents, atrial fibrillation, hypertension. She is currently on Coumadin. - Related Data Home Medications Medication Instructions Recorded Confirmed Albuterol Inhaler [Ventolin Hfa 2 puff INHALATION RT-Q6H PRN 11/16/14 02/07/17 Inhaler] Albuterol Nebulized [Ventolin 2.5 mg INHALATION RT-Q6H PRN 11/16/14 02/07/17 Nebulized] Montelukast [Singulair] 10 mg PO DAILY 11/16/14 02/07/17 Aspirin 81 mg PO DAILY 07/29/16 02/07/17 Hydrochlorothiazide [Hydrodiuril] 25 mg PO DAILY 07/29/16 02/07/17 Losartan Potassium [Cozaar] 100 mg PO DAILY 07/29/16 02/07/17 Nitroglycerin Sl Tabs [Nitrostat] 0.4 mg SUBLINGUAL Q5M PRN 07/29/16 02/07/17 Simvastatin [Zocor] 40 mg PO HS 07/29/16 02/07/17 Fluticasone Propionate [Flovent 2 puff INHALATION RT-BID 02/07/17 02/07/17 Hfa 220MCG] Previous Rx's Medication Instructions Recorded Warfarin Sodium [Coumadin] 4 mg PO HS #0 08/01/16 Allergies Allergy/AdvReac Type Severity Reaction Status Date / Time Iodinated Contrast- Oral and Allergy Severe Rash/Hives Verified 02/07/17 14:30 IV Dye [Iodinated Contrast Media - Oral and] Penicillins Allergy Unknown Verified 02/07/17 14:30 Review of Systems ROS Statement: Those systems with pertinent positive or pertinent negative responses have been documented in the HPI. ROS Other: All systems not noted in ROS Statement are negative. Past Medical History Past Medical History: COPD, Deep Vein Thrombosis (DVT), Eye Disorder, Hyperlipidemia, Hypertension, Myocardial Infarction (MS), Osteoarthritis (OA), Pneumonia, Pulmonary Embolus (PE) Additional Past Medical History / Comment(s): CHF, patient denies valve replacement so stents placed. macular degeneration NEERU eyes,cataract rt eye, heart murmur,silent mi, rheumatic fever, eczema,psoriases, mono age 20, polynePhritis age 7. Last Myocardial Infarction Date:: unk History of Any Multi-Drug Resistant Organisms: None Reported Past Surgical History: Cholecystectomy, Joint Replacement, Tonsillectomy Additional Past Surgical History / Comment(s): lt eye cataract removed has lens implant, after alexa done had ercp(small tar) had neeru stents since removed, rt breast bx was positive for ca had lumpectomy and raditaion tx, d&c, total hysterectomy, neeru knee replacements. Past Anesthesia/Blood Transfusion Reactions: No Reported Reaction Past Psychological History: No Psychological Hx Reported Smoking Status: Former smoker Past Alcohol Use History: None Reported Past Drug Use History: None Reported - Past Family History Sister(s) Family Medical History: Cancer Additional Family Medical History / Comment(s): colon ca Father Family Medical History: CVA/TIA Additional Family Medical History / Comment(s): had a stroke in his 40's Mother Additional Family Medical History / Comment(s): glaucoma General Exam Limitations: no limitations General appearance: alert, in no apparent distress Head exam: Present: atraumatic, normocephalic Eye exam: Present: normal appearance, PERRL ENT exam: Present: normal exam, mucous membranes dry Neck exam: Present: normal inspection. Absent: tenderness, meningismus Respiratory exam: Present: normal lung sounds bilaterally. Absent: respiratory distress, wheezes Cardiovascular Exam: Present: regular rate, irregular rhythm GI/Abdominal exam: Present: soft. Absent: distended, tenderness Extremities exam: Present: normal inspection, normal capillary refill, pedal edema (Trace). Absent: calf tenderness Back exam: Present: normal inspection, full ROM Neurological exam: Present: alert, oriented X3, CN II-XII intact. Absent: motor sensory deficit Psychiatric exam: Present: normal affect, normal mood Skin exam: Present: warm, dry, intact. Absent: cyanosis, diaphoretic Course Vital Signs 02/07/17 02/07/17 02/07/17 14:00 14:25 16:00 Temperature 98.5 F Pulse Rate 72 86 77 Respiratory 20 18 20 Rate Blood Pressure 169/75 153/81 150/76 O2 Sat by Pulse 98 93 L 96 Oximetry - Reevaluation(s) Reevaluation #1: 02/07/17 16:49 Patient is reevaluated, she continues to deny chest pain. On repeat questioning she denies any chest pain within the last week. EKG Findings - EKG Comments: EKG Findings:: EKG shows atrial fibrillation, ventricular rate 81, QRS duration 100, QTC 434, there is no ST segment elevation, inverted T-wave in lead III Medical Decision Making - Medical Decision Making 87-year-old female presenting with chief complaint of generalized weakness and nausea. Denying other associated symptoms including no chest pain shortness of breath, no fever, no abdominal pain, no diarrhea. Patient does not report significant volume in her emesis but does report poor 3 episodes of dry heaving , no nausea at this time. Patient has past medical history of atrial fibrillation and is on Coumadin. She does have a history of what she believes is aortic valvular issue. EKG is negative for acute ischemia. Chest x-ray does show bilateral effusions, with concern for left lower lobe pneumonia, there is no history of support pneumonia, no cough, no fever, vital signs are stable. Sodium is 129, troponin is elevated at 0.078, again patient denies chest pain. She does have a history of LAD stenting approximately 2 years ago. She had an echo in Jul 2016 showed an EF 55-60%. Case is discussed with cardiology on-call, and given the nonischemic EKG and no symptoms to support acute MS, this level will be trended. Patient is anticoagulated with an INR of 2.1. Patient will be placed in observation for repeat cardiac enzymes, cardiology placed on consult. Diagnosi: generalized weakness, hyponatremia, elevated troponin - Lab Data Result diagrams: 02/07/17 14:30 02/07/17 14:30 Lab Results 02/07/17 02/07/17 02/07/17 Range/Units 14:30 14:30 14:30 WBC 3.5 L (3.8-10.6) k/uL RBC 4.95 (3.80-5.40) m/uL Hgb 13.7 (11.4-16.0) gm/dL Hct 41.4 (34.0-46.0) % MCV 83.6 (80.0-100.0) fL MCH 27.8 (25.0-35.0) pg MCHC 33.2 (31.0-37.0) g/dL RDW 15.6 H (11.5-15.5) % Plt Count 574 H (150-450) k/uL Neutrophils % 81 % Lymphocytes % 12 % Monocytes % 4 % Eosinophils % 1 % Basophils % 0 % Neutrophils # 2.9 (1.3-7.7) k/uL Lymphocytes # 0.4 L (1.0-4.8) k/uL Monocytes # 0.2 (0-1.0) k/uL Eosinophils # 0.0 (0-0.7) k/uL Basophils # 0.0 (0-0.2) k/uL PT (9.0-12.0) sec INR (<1.2) Sodium 129 L (137-145) mmol/L Potassium 4.1 (3.5-5.1) mmol/L Chloride 97 L (98-107) mmol/L Carbon Dioxide 24 (22-30) mmol/L Anion Gap 8 mmol/L BUN 13 (7-17) mg/dL Creatinine 0.75 (0.52-1.04) mg/dL Est GFR (MDRD) Af Amer >60 (>60 ml/min/1.73 sqM) Est GFR (MDRD) Non-Af >60 (>60 ml/min/1.73 sqM) Glucose 120 H (74-99) mg/dL Plasma Lactic Acid Jaylan 1.2 (0.7-2.0) mmol/L Calcium 8.7 (8.4-10.2) mg/dL Magnesium 1.8 (1.6-2.3) mg/dL Total Bilirubin 1.3 (0.2-1.3) mg/dL AST 55 H (14-36) U/L ALT 54 H (9-52) U/L Alkaline Phosphatase 73 (38-126) U/L Troponin I (0.000-0.034) ng/mL Total Protein 6.8 (6.3-8.2) g/dL Albumin 4.1 (3.5-5.0) g/dL TSH 1.410 (0.465-4.680) mIU/L Urine Color Urine Appearance (Clear) Urine pH (5.0-8.0) Ur Specific Albright (1.001-1.035) Urine Protein (Negative) Urine Glucose (UA) (Negative) Urine Ketones (Negative) Urine Blood (Negative) Urine Nitrite (Negative) Urine Bilirubin (Negative) Urine Urobilinogen (<2.0) mg/dL Ur Leukocyte Esterase (Negative) 02/07/17 02/07/17 02/07/17 Range/Units 14:30 14:30 16:25 WBC (3.8-10.6) k/uL RBC (3.80-5.40) m/uL Hgb (11.4-16.0) gm/dL Hct (34.0-46.0) % MCV (80.0-100.0) fL MCH (25.0-35.0) pg MCHC (31.0-37.0) g/dL RDW (11.5-15.5) % Plt Count (150-450) k/uL Neutrophils % % Lymphocytes % % Monocytes % % Eosinophils % % Basophils % % Neutrophils # (1.3-7.7) k/uL Lymphocytes # (1.0-4.8) k/uL Monocytes # (0-1.0) k/uL Eosinophils # (0-0.7) k/uL Basophils # (0-0.2) k/uL PT 19.8 H (9.0-12.0) sec INR 2.1 H (<1.2) Sodium (137-145) mmol/L Potassium (3.5-5.1) mmol/L Chloride (98-107) mmol/L Carbon Dioxide (22-30) mmol/L Anion Gap mmol/L BUN (7-17) mg/dL Creatinine (0.52-1.04) mg/dL Est GFR (MDRD) Af Amer (>60 ml/min/1.73 sqM) Est GFR (MDRD) Non-Af (>60 ml/min/1.73 sqM) Glucose (74-99) mg/dL Plasma Lactic Acid Jaylan (0.7-2.0) mmol/L Calcium (8.4-10.2) mg/dL Magnesium (1.6-2.3) mg/dL Total Bilirubin (0.2-1.3) mg/dL AST (14-36) U/L ALT (9-52) U/L Alkaline Phosphatase (38-126) U/L Troponin I 0.078 H* (0.000-0.034) ng/mL Total Protein (6.3-8.2) g/dL Albumin (3.5-5.0) g/dL TSH (0.465-4.680) mIU/L Urine Color Yellow Urine Appearance Clear (Clear) Urine pH 6.5 (5.0-8.0) Ur Specific Albright 1.009 (1.001-1.035) Urine Protein Trace H (Negative) Urine Glucose (UA) Negative (Negative) Urine Ketones 1+ H (Negative) Urine Blood Negative (Negative) Urine Nitrite Negative (Negative) Urine Bilirubin Negative (Negative) Urine Urobilinogen <2.0 (<2.0) mg/dL Ur Leukocyte Esterase Negative (Negative) Disposition Clinical Impression: Hyponatremia, Troponin level elevated Disposition: ADMITTED IP TO THIS [facility] Condition: Stable Referrals: Иван Chaparro MD [Primary Care Provider] - 1-2 days Decision to Admit Reason: Admit from EC Decision Date: 02/07/17 Decision Time: 16:54
[2017-02-07] MEDS ORDERED: NITROGLYCERIN SL TABS 0.4 MG TAB SUBLINGUAL PRN (17:14)
[2017-02-07] MEDS: ATORVASTATIN 20 MG TAB PO SCH (20:34)
[2017-02-07] MEDS: WARFARIN 2 MG TAB PO SCH (20:34)
[2017-02-07 21:15] LABS: Creatine Kinase MB 0.8 ng/mL (0.0-2.4)
[2017-02-07 21:28] LABS: Troponin I 0.073 ng/mL (0.000-0.034)
[2017-02-08 06:30] LABS: Aty Lym Flag Slight; CH 27.9; CHCM 34.3; HCT 37.7 % (34.0-46.0); HDW 2.79; MCH 28.3 pg (25.0-35.0); MCHC 34.6 g/dL (31.0-37.0); MCV 81.7 fL (80.0-100.0); Mean Platelet Volume 7.9; RBC 4.61 m/uL (3.80-5.40); RDW 14.9 % (11.5-15.5); WBC (Perox) 4.06
[2017-02-08 06:56] LABS: ALT 44 U/L (9-52); AST 48 U/L (14-36); Alkaline Phosphatase 70 U/L (38-126); Anion Gap 9 mmol/L; Blood Urea Nitrogen 13 mg/dL (7-17); Carbon Dioxide 25 mmol/L (22-30); Chloride 95 mmol/L (98-107); Glucose 104 mg/dL (74-99); Magnesium 1.9 mg/dL (1.6-2.3); Non-African American GFR(MDRD) >60 (>60 ml/min/1.73 sqM); Potassium 4.2 mmol/L (3.5-5.1); Sodium 129 mmol/L (137-145); Total Bilirubin 1.2 mg/dL (0.2-1.3); Total Protein 6.2 g/dL (6.3-8.2)
[2017-02-08 07:00] LABS: Creatine Kinase MB 0.6 ng/mL (0.0-2.4)
[2017-02-08 07:12] LABS: Troponin I 0.069 ng/mL (0.000-0.034)
[2017-02-08 07:13] LABS: Add Differential Manual Differential
[2017-02-08 07:20] LABS: Band Neutrophils % 23 %; Manual Review Performed; Nucleated Red Blood Cells 0 /100 WBC (0-0); Total Cells Counted 200
[2017-02-08] MEDS: MONTELUKAST 10 MG TAB PO SCH (09:11)
[2017-02-08] MEDS: ASPIRIN 81 MG CHEW PO SCH (09:11)
[2017-02-08] MEDS: LOSARTAN 50 MG TAB PO SCH (09:11)
[2017-02-08 10:41] LABS: INR 2.7 (<1.2); Prothrombin Time 25.6 sec (9.0-12.0)
[2017-02-08] MEDS: SODIUM CHLORIDE 0.9% 1,000 ML IV SCH (10:56)
[2017-02-08] MEDS ORDERED: LEVOFLOXACIN 500MG-D5W PMX 500 MG in DEXTROSE/WATER 1 100ML.BAG IVPB SCH (12:00)
--- NOTE | 2017-02-08 13:46 | CONS ---
A 74-year-old female who came in complaining of weakness and nausea. When I went to examine her she wanted to continue watching TV. She denies any chest discomfort, denies any shortness of breath. She just says she feels weak. According to the emergency room report she had nausea, but no vomiting. REVIEW OF SYSTEMS: No fever, chills, rigors. No cough or expectoration. She had nausea, but no vomiting. No diarrhea. No hematuria, dysuria. No recent strokes or seizures. ALLERGIES: IODINE AND PENICILLIN. Medications at home include albuterol, Singulair, aspirin, hydrochlorothiazide, losartan, and simvastatin. Past history of chronic obstructive pulmonary disease, deep venous thrombosis, dyslipidemia, history of myocardial infarction, pulmonary embolism. She has had multiple surgeries that are documented in the chart. On examination, her blood pressure was elevated to 150/76 mmHg, pulse rate in the 70s. Head and neck examination normal. Heart sounds are irregular, but normal. She is in underlying atrial fibrillation with rate control. She is intrinsically rate controlled without any AV marly blocking drugs. Labs are reviewed. She is hyponatremia. Sodium is 129. Potassium is normal. Chloride is 95. Renal function is normal. Troponins are abnormal at 0.78, 0.73, 0.69. TSH is normal. IMPRESSION: 1. Patient admitted with nausea and weakness. 2. Atrial fibrillation with controlled fast ventricular response. 3. Borderline troponins. 4. Hyponatremia. 5. Hypertension. SUGGEST: Discontinue hydrochlorothiazide, continue losartan for now and for blood pressure consider adding amlodipine 5 mg p.o. daily and continue anticoagulation with Coumadin. Hyponatremia management per admitting physician. Continue atorvastatin and baby aspirin. Thank for the consultation. GUICHO
[2017-02-08] MEDS: amLODIPine 5 MG TAB PO SCH (13:58)
[2017-02-08] MEDS: ALBUTEROL NEBULIZED 2.5 MG/3 ML INHALATION PRN ×2 (14:19→20:38)
[2017-02-08] MEDS: ATORVASTATIN 20 MG TAB PO SCH (21:35)
[2017-02-08] MEDS: WARFARIN 2 MG TAB PO SCH (21:36)
--- NOTE | 2017-02-08 22:33 | HP ---
CHIEF COMPLAINT: Retching with some nausea but no vomiting and just generalized weakness to the point that she was brought into the emergency room accordingly. She states she has nonspecific shortness of breath but more just generalized weakness and three episodes of nausea. She was brought into the hospital accordingly. She denies diarrhea. She denies vomiting. She denies chest pain. She has had really no true shortness of breath. There is questionable feelings of chills or sweats. That is all we have to go on. She said her appetite also has been somewhat decreased over this last period of time. 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 She has longstanding history of pulmonary fibrosis. She has a longstanding history of hypertension. She does have history of having some COPD. She had a myocardial infarction several years ago. She has been in the hospital multiple times with pneumonia. Of course her pulmonary embolism, she has severe macular degeneration, hyperlipidemia, long standing hypertension. Her past surgeries are that of cholecystectomy, joint replacement and tonsillectomy. She has also had cataract surgery bilaterally. From a cardiac point of view, she has had an episode of CHF. 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 Past surgical history includes also a total hysterectomy. She had bilateral knee replacements. She has had breast cancer many years ago when she had a lumpectomy and radiation therapy. Social history: She is . She is a former smoker. She has stopped greater than 20 years ago. She does not use alcohol. She does live alone. She has a daughter and a son who live very close to her. Family history: She has a sister that had cancer and she had another sister with colon cancer. Her father had CVA and TIA and he had a stroke in his 40s. Mother had glaucoma. The patient has had multiple TIAs but nothing recently. Review of systems: Cardiopulmonary: No shortness of breath or chest pain. She has no orthopnea. No paroxysmal nocturnal dyspnea. No cough, hematemesis. GI: No hematemesis, melena or hematochezia. No diarrhea. She has had nausea. : Good urination but she has had multiple urinary tract infections in the past. Urine is negative. Neuromuscular: Just weakness in her legs and arms. EYES: She has macular degeneration. She cannot drive and has a very hard time even seeing. Chest wall: She has had breast cancer with lumpectomy. She has follow-up mammograms on a regular basis. She is able to get up and walk around her house and ambulate accordingly. PSYCHIATRIC: She is no anxiety, no depression. She is well oriented to person, place and thing. She has had a history most recently with previous hospitalization of recent atrial fibrillation. She goes in and out of atrial fibrillation from time to time. 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 Nothing else had to be added. Chronic investigation with her, it was found that she did have a LAD stenting somewhere approximately two years ago. At this point, the only thing that was abnormal is that she did have a 129 sodium. Alert and well oriented to person, place and thing. Blood pressure 157/96. Heart rate was 80s. Respiratory rate 16, temperature 98.6. Eyes: Pupils are equal, round and reactive to light and accommodation. ENT: Tympanic membranes and pharynx to be negative. Neck is supple with midline trachea. Chest is essentially clear. Questionable rhonchi. Chest x-ray showed some left lower lobe pneumonia. Mild CHF is possible too. Heart is irregularly irregular. Abdomen soft, nontender with no organomegaly. No palpable masses. Lower extremities she has some minimal swelling in the lower extremities. She has decreased strength upon walking. She has to be supportive to be walking because of poor eyesight and because of arthritis. Skin: She has some changes in her legs, stasis dermatitis is very minimal. Lumbar cervical has good range of motion. Again, laboratory she has WBC 4, hemoglobin 13, platelet count 488, elevated. INR is at 2.7, sodium is persistent at 129. 4.2 potassium, creatinine good at 0.8, sugars are within normal limits at 104. She has three elevated troponins at 0.078, 0.073 and 0.069. ASSESSMENT: 1. Elevated troponin to rule out non-ST elevation myocardial infarction. 2. Mild congestive heart failure. 3. Previous history of pulmonary embolism and deep venous thrombosis. 4. Questionable left lower lobe pneumonia. 5. Previous history of pulmonary stenosis. 6. Previous coronary artery disease with LAD stenting. 7. Previous history of urinary tract infection, negative today. 8. Acute hypernatremia, not significant for symptomatology. 9. Severe macular degeneration. 10. Hypertension. PLAN: Her medications at this time were readjusted, put on antibiotics. Cardiology consultation. For her wheezing she was also started on updrafts, Albuterol up to four times a day. Prognosis guarded. 70 minutes spent with admission today at this time. GUICHO
[2017-02-09] MEDS: SODIUM CHLORIDE 0.9% 1,000 ML IV SCH (06:01)
[2017-02-09 06:38] LABS: INR 2.7 (<1.2)
[2017-02-09 07:54] LABS: Aty Lym Flag Moderate; CH 28.3; CHCM 33.7; HCT 37.4 % (34.0-46.0); HDW 2.78; HGB 12.2 gm/dL (11.4-16.0); MCH 27.6 pg (25.0-35.0); MCHC 32.6 g/dL (31.0-37.0); MCV 84.5 fL (80.0-100.0); Mean Platelet Volume 8.5; RBC 4.43 m/uL (3.80-5.40); RDW 15.3 % (11.5-15.5); WBC 3.4 k/uL (3.8-10.6); WBC (Perox) 3.82
[2017-02-09 08:01] LABS: Anion Gap 8 mmol/L; Blood Urea Nitrogen 14 mg/dL (7-17); Calcium 8.8 mg/dL (8.4-10.2); Carbon Dioxide 26 mmol/L (22-30); Chloride 99 mmol/L (98-107); Glucose 98 mg/dL (74-99); Non-African American GFR(MDRD) >60 (>60 ml/min/1.73 sqM); Sodium 133 mmol/L (137-145)
[2017-02-09 08:31] LABS: Add Differential Manual Differential
[2017-02-09 08:40] LABS: Band Neutrophils % 2 %; Large Platelets Present; Myelocytes % 1 %; Nucleated Red Blood Cells 0 /100 WBC (0-0); Total Cells Counted 200
[2017-02-09] MEDS: ASPIRIN 81 MG CHEW PO SCH (08:52)
[2017-02-09] MEDS: amLODIPine 5 MG TAB PO SCH (08:52)
[2017-02-09] MEDS: MONTELUKAST 10 MG TAB PO SCH (08:52)
[2017-02-09] MEDS: LOSARTAN 50 MG TAB PO SCH (08:52)
[2017-02-09] MEDS: LEVOFLOXACIN 500 MG TAB PO SCH (12:14)
[2017-02-09] MEDS: ALBUTEROL NEBULIZED 2.5 MG/3 ML INHALATION PRN ×2 (13:53→20:12)
--- NOTE | 2017-02-09 14:56 | PN ---
Patient admitted here on 02/07. An 87-year-old white female who was admitted with retching and had some nausea, but no vomiting. No other GI symptomatology. Brought to the emergency room weak , somewhat confused. At that period of time she was found to have elevated troponin which proceeded x3 and a sodium right around 129. The rest of the symptomatology was negative except for a possibility of some chills. She has past medical history of previous DVTs x2 and also pulmonary emboli. She is on chronic DVT treatment with Coumadin lifelong, long standing history of pulmonary fibrosis with ( ) recession, hypertension, chronic obstructive pulmonary disease second hand, myocardial infarction several years ago with also stent placement of the LAD. She has severe macular degeneration, hyperlipidemia. Her past surgeries again include cholecystectomy, bilateral knee replacement, tonsillectomy, cataract surgery, obvious stent replacement. She had breast cancer with lumpectomy and radiation therapy many years ago and she has h ad negative follow up mammograms. She has a history of rheumatic heart valve in the aortic area which is being watched with significant amount of stenosis, but at this point the patient is not a candidate for surgery. SOCIAL HISTORY: She is , former smoker, stopped 20 years ago. She lives alone. She has daughter and son who live very close to her and support her. FAMILY HISTORY: She has a sister who has had cancer and another one with colon cancer. Her father had a CVA and TIA that lead to severe stroke in his 40s. Mother had glaucoma. Patient herself has had multiple TIAs. REVIEW OF SYSTEMS: CARDIOPULMONARY: She is having no shortness of breath. No chest pain, no orthopnea, no paroxysmal nocturnal dyspnea. No cough, no hemoptysis. GI: No hematemesis, melena, hematochezia. No diarrhea, no nausea, no vomiting at this point. No abdominal pain. Patient did have nausea upon admission. GENITOURINARY: Patient has had good urination. She has had multiple urinary tract infections in the past. Her urine at this point is negative. NEUROMUSCULAR: Just weakness in her legs. She is ambulatory from a neuromuscular point of view. She is able to ambulate and walk with her knee replacements and actually has very good balance. EYES: She has history of severe macular degeneration. She cannot drive and has a very difficult time seeing. CHEST WALL: She has breast cancer with lumpectomy. She has follow up mammograms on regular basis. PSYCHIATRIC: There is no anxiety, there is no depression. She is oriented to person, place and thing. She has had longstanding history of previous hospitalizations for recent onset of atrial fibrillation for which she was already on anticoagulation for chronic deep venous thrombosis. She has been hospitalized many times with pneumonia. 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 At this period of time lab works shows a sodium back up to 133. Her blood pressure was elevated. Consultation with Cardiology because of elevated troponin. He feels that is not myocardial infarction in nature. Also Norvasc was added to her blood pressure regimen at this period of time. PHYSICAL EXAMINATION: Blood pressure 156/96, heart rate in the 80s, respiratory rate is 16, temperature is 98. EYES: Pupils are equal, round and reactive to light and accommodation. ENT: Tympanic membranes and pharynx to be negative. NECK: Supple with midline trachea. CHEST: Essentially clear to auscultation. Chest x-ray does show left lower lobe infiltrate, questionable scarring, atelectasis versus pneumonia, also some mild CHF. HEART: Irregular irregular. ABDOMEN: Soft, nontender with no organomegaly. No palpable masses. EXTREMITIES: She has had some minimal swelling in her lower extremities. NEUROMUSCULAR: She has decreases strength upon walking and she has to be supported because of her poor eyesight and because of her arthritis, but she actually has very, very good balance. Cranial nerves II through XII are grossly intact except for sight is very poor bilaterally. SKIN: She has some stasis dermatitis changes in her lower legs. Lumbar cervical from bed point of view shows range of motion to be fairly good. There is no kyphosis, no severe scoliosis. ASSESSMENT: 1. Elevated troponin felt to be probably from mild congestive heart failure. 2. Mild congestive heart failure, which is stable. 3. Hypertension. 4. Previous history of pulmonary emboli and deep vein thrombosis. 5. Acute hyponatremia, which is correcting from 129 to 133. 6. Questionable left lower lobe pneumonia. 7. Previous history of aortic stenosis. 8. Coronary artery disease with left anterior descending stent two years ago. 9. Urinary tract infection which is negative. 10. Severe macular degeneration. 11. Longstanding history of hypertension. Will continue her on her IV fluids. Norvasc has been added. Echocardiogram ordered per Dr. King. Patient is stable at this point. Patient was spent less than 30 minutes today. [facility]
[2017-02-09] MEDS: WARFARIN 2 MG TAB PO SCH (20:17)
[2017-02-09] MEDS: ATORVASTATIN 20 MG TAB PO SCH (20:17)
[2017-02-10] MEDS: SODIUM CHLORIDE 0.9% 1,000 ML IV SCH (04:05)
[2017-02-10] MEDS: MONTELUKAST 10 MG TAB PO SCH (07:42)
[2017-02-10] MEDS: amLODIPine 5 MG TAB PO SCH (07:42)
[2017-02-10] MEDS: ASPIRIN 81 MG CHEW PO SCH (07:42)
[2017-02-10] MEDS: LOSARTAN 50 MG TAB PO SCH (07:42)
[2017-02-10 08:12] VITALS: BP 148/72; PULSE 72; RESP 16; TEMP 98.4
[2017-02-10 09:04] LABS: INR 2.6 (<1.2)
[2017-02-10 09:38] LABS: ALT 44 U/L (9-52); AST 41 U/L (14-36); Alkaline Phosphatase 62 U/L (38-126); Anion Gap 9 mmol/L; Blood Urea Nitrogen 15 mg/dL (7-17); Calcium 8.8 mg/dL (8.4-10.2); Carbon Dioxide 23 mmol/L (22-30); Chloride 104 mmol/L (98-107); Glucose 124 mg/dL (74-99); Non-African American GFR(MDRD) >60 (>60 ml/min/1.73 sqM); Potassium 4.1 mmol/L (3.5-5.1); Sodium 136 mmol/L (137-145); Total Bilirubin 1.3 mg/dL (0.2-1.3); Total Protein 6.1 g/dL (6.3-8.2)
[2017-02-10] MEDS: LEVOFLOXACIN 500 MG TAB PO SCH (11:30)
--- NOTE | 2017-02-10 11:49 | ECHOF ---
Referral Reason:sob MEASUREMENTS -------- HEIGHT: 165.1 cm WEIGHT: 96.2 kg BP: 122/68 RVIDd: 2.5 cm (< 3.3) IVSd: 1.4 cm (0.6 - 1.1) LVIDd: 3.9 cm (3.9 - 5.3) LVPWd: 1.3 cm (0.6 - 1.1) IVSs: 1.7 cm LVIDs: 2.0 cm LVPWs: 1.9 cm LAESV Index (A-L): 48.57 ml/m Ao Diam: 3.0 cm (2.0 - 3.7) AV Cusp: 0.5 cm (1.5 - 2.6) LA Diam: 4.0 cm (2.7 - 3.8) MV EXCURSION: 14.924 mm (> 18.000) MV EF SLOPE: 98 mm/s (70 - 150) EPSS: 0.6 cm MV E David: 1.82 m/s MV DecT: 206 ms MV A David: 0.55 m/s MV E/A Ratio: 3.34 AV maxP.94 mmHg AV meanP.13 mmHg RAP: 5.00 mmHg RVSP: 25.62 mmHg FINDINGS -------- Atrial fibrillation. This was a technically adequate study. There is moderate concentric left ventricular hypertrophy. Overall left ventricular systolic function is normal with, an EF between 60 - 65 %. The right ventricle is normal in size and function. LA is severely dilated >40 ml/m2 The right atrium is normal in size. Aortic valve is trileaflet and is severely thickened. There is no evidence of aortic regurgitation. Severe aortic stenosis with peak/mean pressure gradient of 81.94mmHg / 56.13mmHg, the aortic valve area by continuity equation is 0.5cm. The mitral valve leaflets are mildly thickened. Mild mitral regurgitation is present. Trace tricuspid regurgitation present. There is no evidence of pulmonary hypertension. The right ventricular systolic pressure, as measured by Doppler, is 25.62mmHg. Trace/mild (physiologic) pulmonic regurgitation. The aortic root size is normal. The inferior vena cava is dilated with poor inspiratory collapse which is consistent with estimated right atrial pressure of 20 mmHg. The pericardium is normal. There is no pericardial effusion. CONCLUSIONS -------- 1. Atrial fibrillation. 2. Trace tricuspid regurgitation present. 3. There is no evidence of pulmonary hypertension. 4. The right ventricular systolic pressure, as measured by Doppler, is 25.62mmHg. 5. Trace/mild (physiologic) pulmonic regurgitation. 6. The aortic root size is normal. 7. The inferior vena cava is dilated with poor inspiratory collapse which is consistent with estimated right atrial pressure of 20 mmHg. 8. There is no pericardial effusion. 9. This was a technically adequate study. 10. There is moderate concentric left ventricular hypertrophy. 11. Overall left ventricular systolic function is normal with, an EF between 60 - 65 %. 12. LA is severely dilated >40 ml/m2 13. Aortic valve is trileaflet and is severely thickened. 14. Severe aortic stenosis with peak/mean pressure gradient of 81.94mmHg / 56.13mmHg, the aortic valve area by continuity equation is 0.5cm. 15. The mitral valve leaflets are mildly thickened. 16. Mild mitral regurgitation is present. BOTTLE [employer]SE PU[employer]ER: Shawn Ivy RDCS
--- NOTE | 2017-02-10 13:32 | CDI ---
In responding to this query, please exercise your independent professional judgment. The [facility] Coding Staff and Clinical Documentation Specialists appreciate your assistance in clarifying documentation, maintaining compliance with coding guidelines, accurately documenting patients condition and capturing severity of illness. The fact that a question is asked does not imply that any particular answer is desired or expected. Communication forms are a method of clarifying documentation and are not made part of the Legal Health Record. Thank you in advance for your clarification. Last Revision, August 2016 Margot [place] [address] [place] [address] Documentation Clarification Form Date: 02/10/2017 1:20:00 PM From: Leeann Ricks RN, CCDS Admit Date: 02/07/2017 4:41:00 PM Patient Name: Angela Ernst Visit Number: [id number] Dr. Иван Chaparro CHF is documented in the H&P and Attending Progress Note. History/Risk Factors: PE, HTN, COPD, PR, Hyperlipidemia Clinical Indicators: 02/08 Attending Progress note: "Elevated troponin felt to be probably from mild congestive heart failure. Mild congestive heart failure, which is stable. " VS/Pulse OX: temp 98.5, Hr 75, RR 20, B/P 169/75, spo2 98% ra BNP: not done 02/10 Echocardiogram Results: "There is moderate concentric left ventricular hypertrophy. Overall left ventricular systolic function is normal with, an EF between 60 - 65 %. LA is severely dilated >40 ml/m2." Chest X Ray: Left lower lobe infiltrate with small bilateral pleural effusions. Correlate for CHF Treatment: No Diuretics Ordered Consults: Completed In your professional opinion, can you please clarify the acuity and type of CHF if known? Systolic Heart Failure: Acute Chronic Acute on Chronic Diastolic Heart Failure: Acute Chronic Acute on Chronic Systolic & Diastolic Heart Failure: Acute Chronic Acute on Chronic Unable to determine Other, please specify CHF ruled out Please document in your progress notes and discharge summary in order to capture severity of illness and risk of mortality. Include clinical findings that support your diagnosis. FYI: Press F11 to launch patient chart. Place X here if this finding has no clinical significance, is not applicable or if you are not able to provide any additional documentation. GUICHO
--- NOTE | 2017-02-13 12:02 | DS ---
DISCHARGE DIAGNOSES: 1. Hyponatremia, severe. 2. Aortic stenosis. 3. History of pulmonary fibrosis. 4. Atrial fibrillation with controlled fast ventricular response. 5. Borderline troponin. 6. Hypertension. 7. Nauseas, vomiting, questionable etiology. This is an 87-year-old white female who was admitted with nausea, vomiting. In that period of time she worsened. They came to the hospital accordingly. She then said that she really and no vomiting just a lot of retching. While in the emergency room she had elevated troponins. She was admitted accordingly. She had longstanding history of pulmonary fibrosis along with hypertension meterman of moderately severe macular degeneration and atrial fibrillation intermittently. While in the hospital her blood pressure was elevated and she her sodium was low at 126. She was taken off her diuretics and given fluid and 24 hours latera she was at 133. At this period of time we are still awaiting the results of the lab from this morning, but she is feeling well. No nausea, no vomiting. No shortness of breath. No chest pain. No orthopnea. Her INR has also been good at 2.7. She had history of pulmonary embolism and also DVT x2 so she is on chronic warfarin use for both recurrent deep venous thrombosis and atrial fibrillation. REVIEW OF SYSTEMS: CARDIOPULMONARY: She has no shortness of breath. No chest pain. No orthopnea, no paroxysmal nocturnal dyspnea. Minimal amount of cough. GI: No nausea, no retching. No diarrhea, no constipation. No melena, no hematemesis. No hematochezia. GENITOURINARY: Normal urination. NEUROMUSCULAR: Just some aches and pains in her knees and lower leg as usual and also her lower back. INTEGUMENTARY: She says no new skin changes. EYES: She has macular degeneration and she can see very, very minimally. Lab work still waiting today for the results. VITAL SIGNS: Blood pressure 148/72, heart rate 72, respiratory rate is 16, temperature 98.4. EYES: Pupils are equal, round and reactive to light and accommodation. ENT: Tympanic membranes and pharynx to be negative. NECK: Supple with midline trachea. CHEST: Essentially clear to auscultation. HEART: Sinus rhythm at this time, no murmur. ABDOMEN: Soft, nontender with no organomegaly. ASSESSMENT: 1. Nausea, vomiting questionable etiology. Troponins questionably mildly elevated. 2. Probability of pneumonia seen on chest x-ray. 3. Hyponatremia resolving. 4. History of hypertension, now stable. 5. Pulmonary fibrosis. 6. Macular degeneration. Will wait for the lab work. If it is fine she can probably be discharged depending on Cardiology recommendations. Please refer to my orders. MTDD
--- NOTE | 2017-02-13 15:18 | CDI ---
In responding to this query, please exercise your independent professional judgment. The [facility] Coding Staff and Clinical Documentation Specialists appreciate your assistance in clarifying documentation, maintaining compliance with coding guidelines, accurately documenting patients condition and capturing severity of illness. The fact that a question is asked does not imply that any particular answer is desired or expected. Communication forms are a method of clarifying documentation and are not made part of the Legal Health Record. Thank you in advance for your clarification. Last Revision, August 2016 Margot [place] [address] [place] [address] Documentation Clarification Form 2nd Request- Please Document Response Date: 02/10/2017 1:20:00 PM From: Leeann Ricks RN, CCDS Admit Date: 02/07/2017 4:41:00 PM Patient Name: Angela Ernst Visit Number: [id number] Dr. Иван Chaparro CHF is documented in the H&P and Attending Progress Note. History/Risk Factors: PE, HTN, COPD, SC, Hyperlipidemia Clinical Indicators: 02/08 Attending Progress note: "Elevated troponin felt to be probably from mild congestive heart failure. Mild congestive heart failure, which is stable. " VS/Pulse OX: temp 98.5, Hr 75, rr 20, B/P 169/75, spo2 98% ra BNP: not Done 02/10 Echocardiogram Results: "There is moderate concentric left ventricular hypertrophy. Overall left ventricular systolic function is normal with, an EF between 60 - 65 %. LA is severely dilated >40 ml/m2." Chest X Ray: Left Lower lobe infiltrate with small bilateral pleural effusions. Correlate for CHF Treatment: No Diuretics Ordered Consults: Completed In your professional opinion, can you please clarify the acuity and type of CHF if known? Systolic Heart Failure: Acute Chronic Acute on Chronic Diastolic Heart Failure: Acute Chronic Acute on Chronic Systolic & Diastolic Heart Failure: Acute Chronic Acute on Chronic Unable to determine Other, please specify Please document in your progress notes and discharge summary in order to capture severity of illness and risk of mortality. Include clinical findings that support your diagnosis. FYI: Press F11 to launch patient chart. Place X here if this finding has no clinical significance, is not applicable or if you are not able to provide any additional documentation. GUICHO
--- NOTE | 2017-02-17 14:52 | DS ---
DISCHARGE SUMMARY DISCHARGE DIAGNOSES: 1. Elevated troponin rule out non ST depression myocardia infarction. 2. Mild congestive heart failure. 3. Previous history of pulmonary emboli and DVT. 4. Questionable left lower lobe pneumonia. 5. Previous pulmonary stenosis. 6. Left anterior descending artery stenting. 7. Prior history urinary tract infection. 8. Acute hypernatremia. 9. Severe macular degeneration with blindness. 10.Hypertension. This was a white female that was admitted on February 07, discharged on 02/13 and was admitted with some nausea but no vomiting, generalized weakness, nonspecific shortness of breath without diarrhea or vomiting or chest pain. There was some question of some chills or sweats but she just felt very weak. With a history of previous COPD with pulmonary fibrosis, DVT and pulmonary emboli and coronary artery disease, she was admitted. A consultation was completed with Dr. King and Dr. Brown saw her and reviewed her echocardiogram which showed moderate concentric left ventricular hypertrophy, her atrial fib, severe aortic stenosis with a mean pressure gradient of 81.94-59.13 mmHg. The echo Doppler was she was in the hospital was completed and those were her findings. We talked with her and she continued to improve with IV fluids and IV antibiotics and it was felt that maybe the left lower lobe infiltrate was more of a pneumonia. Long conversation again with Cardiology and patient is very clear about not wanting to have any type of surgery on her aortic valve. So she is being discharged home with her COPD to be added to the diagnosis with her Ventolin inhaler as needed. Ventolin updrafts every 4 hours p.r.n., nitroglycerin 0.5, her Singulair 4, losartan 100, hydrochlorothiazide 25 a day, aspirin 81, Zocor 40. Her Coumadin at this time is at 4 mg daily. She will follow up with cardiology on outpatient basis. She will see me on 02/18/2017 where we will review her present PT/INR and again I let the patient know that she might want to think about the surgical procedure on her aortic valve at which she is against 100%. We also added some 5 of amlodipine and Levaquin 500 for 7 days. She is to be on a regular diet with low salt. Obviously the greens affect her Coumadin. Again we reiterated. Her activity as tolerated but protection for fall especially with her being blind and also semi living alone. Prognosis is guarded. MMODL / IJN: [id number] /
== END 2017-02-10 12:47 | disposition home or self-care (01) | DRG 640 ==
LOC: EC 13:50 → 6SEL 16:41 → 4MS4W 02-09 13:49
PROVIDERS: ADMIT Family Medicine; ATTEND Family Medicine
DX: E87.1 Hypo-osmolality and hyponatremia (principal); J18.9 Pneumonia, unspecified organism; J44.0 Chronic obstructive pulmonary disease with (acute) lower respiratory infection; I48.91 Unspecified atrial fibrillation; I06.0 Rheumatic aortic stenosis; R74.8 Abnormal levels of other serum enzymes; I10 Essential (primary) hypertension; H35.30 Unspecified macular degeneration; R11.0 Nausea; R53.1 Weakness; M79.604 Pain in right leg; M79.605 Pain in left leg; M25.561 Pain in right knee; M25.562 Pain in left knee; I25.2 Old myocardial infarction; I25.10 Atherosclerotic heart disease of native coronary artery without angina pectoris; M54.5 Low back pain; I87.2 Venous insufficiency (chronic) (peripheral); R06.2 Wheezing; H26.9 Unspecified cataract; H54.7 Unspecified visual loss; E78.5 Hyperlipidemia, unspecified; Z96.653 Presence of artificial knee joint, bilateral; Z86.718 Personal history of other venous thrombosis and embolism; Z85.3 Personal history of malignant neoplasm of breast; Z86.711 Personal history of pulmonary embolism; Z79.01 Long term (current) use of anticoagulants; Z95.5 Presence of coronary angioplasty implant and graft; Z87.440 Personal history of urinary (tract) infections; Z82.3 Family history of stroke; Z87.891 Personal history of nicotine dependence; Z90.710 Acquired absence of both cervix and uterus; Z80.0 Family history of malignant neoplasm of digestive organs; Z90.11 Acquired absence of right breast and nipple; Z90.49 Acquired absence of other specified parts of digestive tract; Z92.3 Personal history of irradiation; Z87.01 Personal history of pneumonia (recurrent); Z88.0 Allergy status to penicillin; Z88.8 Allergy status to other drugs, medicaments and biological substances; Z91.041 Radiographic dye allergy status; Z79.82 Long term (current) use of aspirin; Z79.51 Long term (current) use of inhaled steroids; Z79.899 Other long term (current) drug therapy; Z98.42 Cataract extraction status, left eye; Z96.1 Presence of intraocular lens; Z86.19 Personal history of other infectious and parasitic diseases; Z87.09 Personal history of other diseases of the respiratory system; Z87.2 Personal history of diseases of the skin and subcutaneous tissue; Z80.9 Family history of malignant neoplasm, unspecified; Z86.79 Personal history of other diseases of the circulatory system
CPT/HCPCS: 36415; 71020; 80048; 80053; 81003; 82550; 82553; 83605; 83735; 84443; 84484; 85025; 85610; 87086; 93306; 94640

== ENCOUNTER 2018-10-11 09:46 | Emergency (ER) | payer MEDICARE, OTHER ==
[2018-10-11 09:59] VITALS: BP 150/76; PULSE 68; RESP 18; TEMP 98.7
[2018-10-11] MEDS ORDERED: MORPHINE SULFATE 4 MG/ML SYRINGE IM STA (10:26)
--- NOTE | 2018-10-11 10:50 | ED ---
General Adult HPI - General Chief complaint: Back Pain/Injury Stated complaint: Back Pain Time Seen by Provider: 10/11/18 10:05 Source: patient, RN notes reviewed, old records reviewed Mode of arrival: EMS Limitations: no limitations - History of Present Illness Initial comments: 88-year-old female patient past history including CHF, prior pulmonary embolism, hypertension and irregular on Coumadin presents to ED with chronic lumbar back pain. Patient states that she has experienced chronic lumbar back pain. Patient has had an exacerbation of pain for approximately 1 month. Patient states this pain is located in her right paralumbar region and radiates into her right posterior lower extremity. Patient is still ambulatory. Patient denies any loss of bowel or bladder control, saddle anesthesia, lower extremity weakness, fevers or chills. Patient denies any other complaints. Patient was seen by her primary care provider for this problem 5 days ago administered a cortisone shot and by mouth steroids which did offer some relief. Patient denies any other complaints. Patient vital signs stable, afebrile. Systemic: Pt denies fatigue, myalgia, fever/chills, rash. Pt denies weakness, night sweats, weight loss. Neuro: Pt denies headache, visual disturbances, syncope or pre-syncope. HEENT: Pt denies ocular discharge or irritation, otalgia, rhinorrhea, pharyngitis or notable lymphadenopathy. Cardiopulmonary: Pt denies chest pain, SOB, heart palpitations, dyspnea on exertion. Abdominal/GI: Pt denies abdominal pain, n/v/d. : Pt denies dysuria, burning w/ urination, frequency/urgency. Denies new onset urinary or bowel incontinence. MSK: Pt denies myalgia, loss of strength or function in extremities. Neuro: Pt denies new onset weakness, paresthesias. - Related Data Home Medications Medication Instructions Recorded Confirmed Albuterol Nebulized [Ventolin 2.5 mg INHALATION RT-Q6H PRN 11/16/14 10/11/18 Nebulized] Montelukast [Singulair] 10 mg PO DAILY 11/16/14 10/11/18 Aspirin 81 mg PO DAILY 07/29/16 10/11/18 Hydrochlorothiazide [Hydrodiuril] 25 mg PO DAILY 07/29/16 10/11/18 Losartan Potassium [Cozaar] 100 mg PO DAILY 07/29/16 10/11/18 Nitroglycerin Sl Tabs [Nitrostat] 0.4 mg SUBLINGUAL Q5M PRN 07/29/16 10/11/18 Simvastatin [Zocor] 40 mg PO HS 07/29/16 10/11/18 Furosemide [Lasix] 20 mg PO DAILY 05/19/17 10/11/18 Potassium Chloride [Klor-Con 10] 10 meq PO DAILY 05/19/17 10/11/18 Previous Rx's Medication Instructions Recorded Warfarin Sodium [Coumadin] 4 mg PO HS #0 08/01/16 amLODIPine [Norvasc] 5 mg PO DAILY #30 tab 02/10/17 Fluticasone Propionate [Flovent 2 puff INHALATION DAILY #1 inhaler 04/09/17 Hfa 220MCG] Allergies Allergy/AdvReac Type Severity Reaction Status Date / Time Iodinated Contrast- Oral and Allergy Severe Rash/Hives Verified 10/11/18 10:30 IV Dye [Iodinated Contrast Media - Oral and] Penicillins Allergy Rash/Hives Verified 10/11/18 10:30 Review of Systems ROS Statement: Those systems with pertinent positive or pertinent negative responses have been documented in the HPI. ROS Other: All systems not noted in ROS Statement are negative. Past Medical History Past Medical History: COPD, Deep Vein Thrombosis (DVT), Eye Disorder, Hyperlipidemia, Hypertension, Myocardial Infarction ([place]), Osteoarthritis (OA), Pneumonia, Pulmonary Embolus ([place]) Additional Past Medical History / Comment(s): CHF, patient denies valve replacement so stents placed. macular degeneration NEERU eyes"legally blind" unable to read but able to sign name,cataract rt eye, heart murmur,silent mi, rheumatic fever, eczema,psoriases, mono age 20, polynePhritis age 7. Last Myocardial Infarction Date:: unk History of Any Multi-Drug Resistant Organisms: None Reported Past Surgical History: Cholecystectomy, Hysterectomy, Joint Replacement, Tonsil lectomy Additional Past Surgical History / Comment(s): lt eye cataract removed has lens implant, after alexa done had ercp(small tar) had neeru stents since removed, rt breast bx was positive for ca had lumpectomy and raditaion tx, d&c, total hysterectomy, neeru knee replacements. Past Anesthesia/Blood Transfusion Reactions: No Reported Reaction Past Psychological History: No Psychological Hx Reported Smoking Status: Former smoker Past Alcohol Use History: None Reported Past Drug Use History: None Reported - Past Family History Sister(s) Family Medical History: Cancer Additional Family Medical History / Comment(s): colon ca Father Family Medical History: CVA/TIA Additional Family Medical History / Comment(s): had a stroke in his 40's Mother Additional Family Medical History / Comment(s): glaucoma General Exam - General Exam Comments Initial Comments: Constitutional: NAD, AOX3, Pt has pleasant affect. HEENT: NC/AT, trachea midline, neck supple, no lymphadenopathy. Posterior pharynx non erythematous, without exudates. External ears appear normal, without discharge. Mucous membranes moist. Eyes PERRLA, EOM intact. There is no scleral icterus. No pallor noted. Cardiopulmonary: RRR, no murmurs, rubs or gallops, no JVD noted. Lungs CTAB in anterior and posterior [place]. No peripheral edema. Abdominal exam: Abdomen soft and non-distended. Abdomen non-tender to palpation in all 4 quadrants. Bowel sounds active in LLQ. No hepatosplenomegaly. No ecchymosis Neuro: CN II-XII grossly intact. No nuchal rigidity. MSK: No midline tenderness cervical, thoracic, lumbar. Right paralumbar spine m ildly tender to palpation. Straight leg raise positive right. Neck after leg raise negative. 5 out of 5 strength psoas and quadriceps muscles. No posterior calf tenderness bilaterally, homans sign negative bilaterally. Posterior tibialis and radial pulse +2 bilaterally. Sensation intact in upper and lower extremities. Full active ROM in upper and lower extremities, 5/5 stregnth. Limitations: no limitations Course Vital Signs 10/11/18 09:53 Temperature 98.7 F Pulse Rate 68 Respiratory 18 Rate Blood Pressure 150/76 O2 Sat by Pulse 99 Oximetry Medical Decision Making - Medical Decision Making 88-year-old female patient past history including CHF, prior pulmonary embolism, hypertension and irregular on Coumadin presents to ED with chronic lumbar back pain. Patient states that she has experienced chronic lumbar back pain. Patient has had an exacerbation of pain for approximately 1 month. Patient states this pain is located in her right paralumbar region and radiates into her right posterior lower extremity. Patient is still ambulatory. Patient denies any loss of bowel or bladder control, saddle anesthesia, lower extremity weakness, fevers or chills. Patient denies any other complaints. Patient was seen by her primary care provider for this problem 5 days ago administered a cortisone shot and by mouth steroids which did offer some relief. Patient denies any other complaints. Patient vital signs stable, afebrile. Physical exam displayed: No midline tenderness cervical, thoracic, lumbar. Right paralumbar spine mildly tender to palpation. Straight leg raise positive right. Neck after leg raise negative. 5 out of 5 strength psoas and quadriceps muscles. Ct Lumbar spine displayed diffuse degenerative disc disease, multilevel intervertebral foraminal narrowing, carying degrees of central canal stneosis. Right hepatic biliary dilationg. Pt is s/p colecystectomy, does not have any abdominal pain. Pt will be DC and f/u with PCP and orthopedic consult. Pt will f/u with PCP for reevaluation of dilated ducts. Patient willreturn to ER if condition worsens in any way. Case discussed with Dr. Bryant. - Lab Data Lab Results 10/11/18 Range/Units 10:45 Urine Color Yellow Urine Appearance Clear (Clear) Urine pH 6.5 (5.0-8.0) Ur Specific [place] 1.010 (1.001-1.035) Urine Protein Negative (Negative) Urine Glucose (UA) Negative (Negative) Urine Ketones Negative (Negative) Urine Blood Negative (Negative) Urine Nitrite Negative (Negative) Urine Bilirubin Negative (Negative) Urine Urobilinogen <2.0 (<2.0) mg/dL Ur Leukocyte Esterase Negative (Negative) Disposition Clinical Impression: Chronic lumbar pain Disposition: HOME SELF-CARE Condition: Stable Instructions (If sedation given, give patient instructions): Acute Low Back Pain (ED), Chronic Back Pain (ED) Additional Instructions: Patient to adhere to previously discussed treatment plan and will take medication(s) as directed. Patient to follow up with PCP in 1-2 days. Patient to return to ED if symptoms do not improve. Please follow up with PCP in 1-2 days. Please follow up with orthopedic consult in 1-2 days. Please use ibuprofen as needed for pain. Please use tylenol #3 for extreme pain. Do not drive after taking tylenol #3. Is patient prescribed a controlled substance at d/c from ED?: No Referrals: Irasema Chawla DO [Primary Care Provider] - 1-2 days Maddison Epperson DO [Doctor of Osteopathic Medicine] - 1-2 days
--- NOTE | 2018-10-11 11:15 | CT ---
EXAMINATION TYPE: CT lumbar spine wo con DATE OF EXAM: 10/11/2018 11:04 AM COMPARISON: None. HISTORY: Back pain CT DLP: 821.7 mGycm Automated exposure control for dose reduction was used. Unenhanced CT of the lumbar spine was performed. Bone and soft tissue window settings are submitted as well as coronal and sagittal reconstructions. FINDINGS: There are emphysematous changes at the lung bases. There is biliary dilatation in the anterior segment of the right lobe of the liver. There is been a p revious cholecystectomy. There is extensive vascular calcification present. Paraspinal soft tissues a re otherwise normal. There is a grade 1 degenerative spondylolisthesis of L4 on L5. Alignment is otherwise maintained. The re is severe hypertrophic spondylosis anteriorly within the lumbar spine. There is a moderate levosco liosis. There is spondylosis deformans involving the entire lumbar spine. At T12-L1, is hypertrophic spondylosis anteriorly intervertebral foramina appear well maintained. The re is no significant compressive discopathy. There are mild hypertrophic changes in the facets. L1-L2: Disc space loss and a vacuum phenomena. There is mild hypertrophic spondylosis present anterio rly. There is right-sided intervertebral foraminal narrowing. There is a diffuse disc displacement. T here is mild trefoiling of the thecal sac. There are hypertrophic changes in the facets. L2-L3: There is disc space loss and a vacuum phenomena. This hypertrophic spondylosis present bilater ally. There is bilateral intervertebral foraminal narrowing. There is facet arthropathy. There is mil d to moderate central canal stenosis. L3-L4: The intervertebral foramina are reasonably well-maintained. There is a diffuse disc displaceme nt. This hypertrophic changes in the facets. There is mild trefoiling of the thecal sac. L4-L5: There is a degenerative grade 1 spondylolisthesis of L4 and L4 on L5. There is an associated p seudodisc. There is bilateral intervertebral foraminal narrowing. There is marked hypertrophic change s in the facets. There is moderate to severe central canal stenosis. L5-S1: Is disc space loss. There is bilateral intervertebral foraminal narrowing worse on the left th an the right. There is a diffuse disc displacement. This hypertrophic changes in the facets. IMPRESSION: 1. DIFFUSE DEGENERATIVE DISC DISEASE, FACET ARTHROPATHY, HYPERTROPHIC SPONDYLOSIS AND SPONDYLOSIS DEF ORMANS. 2. MULTILEVEL INTERVERTEBRAL FORAMINAL NARROWING. 3. VARYING DEGREES OF CENTRAL CANAL STENOSIS, MOST MARKED AT L4-5. 4. RIGHT HEPATIC BILIARY DILATATION.
[2018-10-11 11:44] LABS: Appearance,Urine Clear (Clear); Bilirubin,Urine Negative (Negative); Blood,Urine Negative (Negative); Color,Urine Yellow; Glucose,Urine (UA) Negative (Negative); Ketones,Urine Negative (Negative); Leukocyte Esterase,Urine Negative (Negative); Nitrite,Urine Negative (Negative); PH, Urine 6.5 (5.0-8.0); Protein,Urine Negative (Negative); Urobilinogen,Urine <2.0 mg/dL (<2.0)
[2018-10-11] MEDS ORDERED: ACET/COD 300 MG/30 MG STARTER PACK 6 TAB BTL PO STA (11:51)
== END 2018-10-11 12:32 | disposition home or self-care (01) ==
LOC: EC 09:46
DX: G89.29 Other chronic pain (principal); M48.061 Spinal stenosis, lumbar region without neurogenic claudication; M51.36 Other intervertebral disc degeneration, lumbar region; J44.9 Chronic obstructive pulmonary disease, unspecified; E78.5 Hyperlipidemia, unspecified; I11.0 Hypertensive heart disease with heart failure; I50.9 Heart failure, unspecified; I25.2 Old myocardial infarction; M19.90 Unspecified osteoarthritis, unspecified site; Z96.653 Presence of artificial knee joint, bilateral; Z87.891 Personal history of nicotine dependence; Z79.82 Long term (current) use of aspirin; Z79.899 Other long term (current) drug therapy; Z91.041 Radiographic dye allergy status; Z88.0 Allergy status to penicillin
CPT/HCPCS: 81003; 72131; 99284; 96372; J2270

== ENCOUNTER 2018-10-26 09:33 | Inpatient (IN) | payer MEDICARE, OTHER ==
[2018-10-26] MEDS ORDERED: SODIUM CHLORIDE 0.9% 1,000 ML IV STA (10:08)
[2018-10-26] MEDS ORDERED: FAMOTIDINE 20 MG/2 ML VIAL IV STA (10:08)
--- NOTE | 2018-10-26 10:11 | ED ---
GI Bleed HPI - General Chief complaint: GI Bleed Stated complaint: WEAKNESS Time Seen by Provider: 10/26/18 09:33 Source: patient, EMS, RN notes reviewed Mode of arrival: EMS Limitations: no limitations - History of Present Illness Initial comments: This is a 80-year-old female who is on Coumadin for DVT and pulmonary embolisms in the past who apparently is been having black stool for the past week. She is also complaining of diarrhea. She is legally blind so she can't tell what color it is. Family members have been telling her that she does have black stool. However. She does feel weak. She states she is lightheaded when she tries get up and walk or stand. She denies any fevers chills nausea vomiting sweats or other symptoms. She has a history of a gallbladder surgery but no other abdominal surgeries. No prior history of GI bleeding. She did have a fall yesterday but refused to come the hospital at that time. Just complains some slight left-sided abdominal pain MD complaint: melena - Related Data Home Medications Medication Instructions Recorded Confirmed Albuterol Nebulized [Ventolin 2.5 mg INHALATION RT-Q6H PRN 11/16/14 10/26/18 Nebulized] Montelukast [Singulair] 10 mg PO DAILY 11/16/14 10/26/18 Aspirin 81 mg PO DAILY 07/29/16 10/26/18 Hydrochlorothiazide [Hydrodiuril] 25 mg PO DAILY 07/29/16 10/26/18 Losartan Potassium [Cozaar] 100 mg PO DAILY 07/29/16 10/26/18 Nitroglycerin Sl Tabs [Nitrostat] 0.4 mg SUBLINGUAL Q5M PRN 07/29/16 10/26/18 Simvastatin [Zocor] 40 mg PO HS 07/29/16 10/26/18 Furosemide [Lasix] 20 mg PO DAILY 05/19/17 10/26/18 Potassium Chloride [Klor-Con 10] 10 meq PO DAILY 05/19/17 10/26/18 Acetaminophen-Codeine 300-30mg 1 tab PO Q6H PRN 10/26/18 10/26/18 [Tylenol w/codeine #3] Celecoxib [CeleBREX] 200 mg PO DAILY@1200 10/26/18 10/26/18 Previous Rx's Medication Instructions Recorded Warfarin Sodium [Coumadin] 4 mg PO HS #0 08/01/16 amLODIPine [Norvasc] 5 mg PO DAILY #30 tab 02/10/17 Fluticasone Propionate [Flovent 2 puff INHALATION DAILY #1 inhaler 04/09/17 Hfa 220MCG] Allergies Allergy/AdvReac Type Severity Reaction Status Date / Time Iodinated Contrast- Oral and Allergy Severe Rash/Hives Verified 10/26/18 09:44 IV Dye [Iodinated Contrast Media - Oral and] Penicillins Allergy Rash/Hives Verified 10/26/18 09:44 Review of Systems ROS Statement: Those systems with pertinent positive or pertinent negative responses have been documented in the HPI. ROS Other: All systems not noted in ROS Statement are negative. Past Medical History Past Medical History: COPD, Deep Vein Thrombosis (DVT), Eye Disorder, Hyperlipidemia, Hypertension, Myocardial Infarction ([place]), Osteoarthritis (OA), Pneumonia, Pulmonary Embolus (PE) Additional Past Medical History / Comment(s): CHF, patient denies valve replacement so stents placed. macular degeneration NEERU eyes"legally blind" suresh ble to read but able to sign name,cataract rt eye, heart murmur,silent mi, rheumatic fever, eczema,psoriases, mono age 20, polynePhritis age 7. Last Myocardial Infarction Date:: unk History of Any Multi-Drug Resistant Organisms: None Reported Past Surgical History: Cholecystectomy, Hysterectomy, Joint Replacement, Tonsillectomy Additional Past Surgical History / Comment(s): lt eye cataract removed has lens implant, after alexa done had ercp(small tar) had neeru stents since removed, rt breast bx was positive for ca had lumpectomy and raditaion tx, d&c, total hysterectomy, neeru knee replacements. Past Anesthesia/Blood Transfusion Reactions: No Reported Reaction Past Psychological History: No Psychological Hx Reported Smoking Status: Former smoker Past Alcohol Use History: None Reported Past Drug Use History: None Reported - Past Family History Sister(s) Family Medical History: Cancer Additional Family Medical History / Comment(s): colon ca Father Family Medical History: CVA/TIA Additional Family Medical History / Comment(s): had a stroke in his 40's Mother Additional Family Medical History / Comment(s): glaucoma General Exam - General Exam Comments Initial Comments: This is a well-developed well-nourished awake alert oriented 3 female Limitations: no limitations General appearance: alert, in no apparent distress Head exam: Present: atraumatic, normocephalic, normal inspection Eye exam: Present: normal appearance, PERRL, EOMI. Absent: scleral icterus, conjunctival injection, periorbital swelling ENT exam: Present: mucous membranes dry Neck exam: Present: normal inspection, full ROM, other (No stridor JVD or bruits). Absent: tenderness, meningismus, lymphadenopathy Respiratory exam: Present: normal lung sounds bilaterally. Absent: respiratory distress, wheezes, rales, rhonchi, stridor Cardiovascular Exam: Present: regular rate, normal rhythm, normal heart sounds. Absent: systolic murmur, diastolic murmur, rubs, gallop, clicks GI/Abdominal exam: Present: soft, tenderness (Mild left lower quadrant tenderness palpation no overt guarding or rebound), normal bowel sounds. Absent: distended, guarding, rebound, rigid Rectal exam: Present: heme (+) stool (Colored stool noted from the rectum. No masses) Extremities exam: Present: normal inspection, full ROM, normal capillary refill. Absent: tenderness, pedal edema, joint swelling, calf tenderness Back exam: Present: normal inspection Neurological exam: Present: alert, oriented X3, CN II-XII intact Psychiatric exam: Present: normal affect, normal mood Skin exam: Present: warm, dry, intact, pallor. Absent: rash Course Vital Signs 10/26/18 10/26/18 10/26/18 09:34 10:00 10:30 Temperature 98.3 F Pulse Rate 80 95 80 Respiratory 18 18 18 Rate Blood Pressure 108/65 108/65 81/60 O2 Sat by Pulse 100 96 96 Oximetry 10/26/18 10/26/18 11:00 11:30 Temperature Pulse Rate 75 78 Respiratory 18 18 Rate Blood Pressure 92/56 105/70 O2 Sat by Pulse 98 98 Oximetry - Reevaluation(s) Reevaluation #1: 10/26/18 12:19 Patient remains awake alert oriented 3. Her vital signs are maintained Medical Decision Making - Medical Decision Making Patient does demonstrate evidence of acute GI bleed. Coumadin toxicity, anemia and thrombocytosis. I did discuss case with Dr. Sharma and with Dr. Mcelroy. Patient will be admitted ICU with consultation to Dr. Apodaca also did consult and contact - Lab Data Result diagrams: 10/26/18 09:52 10/26/18 09:52 Lab Results 10/26/18 10/26/18 10/26/18 Range/Units 09:50 09:52 09:52 WBC 15.6 H (3.8-10.6) k/uL RBC 3.16 L (3.80-5.40) m/uL Hgb 8.5 L (11.4-16.0) gm/dL Hct 26.2 L (34.0-46.0) % MCV 83.1 (80.0-100.0) fL MCH 26.9 (25.0-35.0) pg MCHC 32.4 (31.0-37.0) g/dL RDW 16.0 H (11.5-15.5) % Plt Count 1516 H* (150-450) k/uL Neutrophils % 81 % Lymphocytes % 7 % Monocytes % 7 % Eosinophils % 1 % Basophils % 1 % Neutrophils # 12.7 H (1.3-7.7) k/uL Lymphocytes # 1.0 (1.0-4.8) k/uL Monocytes # 1.2 H (0-1.0) k/uL Eosinophils # 0.1 (0-0.7) k/uL Basophils # 0.1 (0-0.2) k/uL Manual Slide Review Performed RBC Morphology Normal PT (9.0-12.0) sec INR (<1.2) APTT (22.0-30.0) sec Sodium 132 L (137-145) mmol/L Potassium 4.4 (3.5-5.1) mmol/L Chloride 95 L (98-107) mmol/L Carbon Dioxide 27 (22-30) mmol/L Anion Gap 10 mmol/L BUN 62 H (7-17) mg/dL Creatinine 1.23 H (0.52-1.04) mg/dL Est GFR (CKD-EPI)AfAm 45 (>60 ml/min/1.73 sqM) Est GFR (CKD-EPI)NonAf 39 (>60 ml/min/1.73 sqM) Glucose 113 H (74-99) mg/dL Calcium 8.7 (8.4-10.2) mg/dL Magnesium 2.3 (1.6-2.3) mg/dL Total Bilirubin 1.0 (0.2-1.3) mg/dL AST 34 (14-36) U/L ALT 35 (9-52) U/L Alkaline Phosphatase 83 (38-126) U/L Creatine Kinase 82 (30-135) U/L Troponin I (0.000-0.034) ng/mL Total Protein 5.7 L (6.3-8.2) g/dL Albumin 3.5 (3.5-5.0) g/dL Stool Occult Blood (Negative) Blood Type B Positive Blood Type Confirm Blood Type Recheck CABO Indicated Antibody Screen NEGATIVE Spec Expiration Date 10/29/2018 - 234910/26/18 10/26/18 10/26/18 Range/Units 09:52 09:52 10:09 WBC (3.8-10.6) k/uL RBC (3.80-5.40) m/uL Hgb (11.4-16.0) gm/dL Hct (34.0-46.0) % MCV (80.0-100.0) fL MCH (25.0-35.0) pg MCHC (31.0-37.0) g/dL RDW (11.5-15.5) % Plt Count (150-450) k/uL Neutrophils % % Lymphocytes % % Monocytes % % Eosinophils % % Basophils % % Neutrophils # (1.3-7.7) k/uL Lymphocytes # (1.0-4.8) k/uL Monocytes # (0-1.0) k/uL Eosinophils # (0-0.7) k/uL Basophils # (0-0.2) k/uL Manual Slide Review RBC Morphology PT >130.0 H (9.0-12.0) sec INR >10.0 H* (<1.2) APTT 55.8 H (22.0-30.0) sec Sodium (137-145) mmol/L Potassium (3.5-5.1) mmol/L Chloride (98-107) mmol/L Carbon Dioxide (22-30) mmol/L Anion Gap mmol/L BUN (7-17) mg/dL Creatinine (0.52-1.04) mg/dL Est GFR (CKD-EPI)AfAm (>60 ml/min/1.73 sqM) Est GFR (CKD-EPI)NonAf (>60 ml/min/1.73 sqM) Glucose (74-99) mg/dL Calcium (8.4-10.2) mg/dL Magnesium (1.6-2.3) mg/dL Total Bilirubin (0.2-1.3) mg/dL AST (14-36) U/L ALT (9-52) U/L Alkaline Phosphatase (38-126) U/L Creatine Kinase (30-135) U/L Troponin I 0.019 (0.000-0.034) ng/mL Total Protein (6.3-8.2) g/dL Albumin (3.5-5.0) g/dL Stool Occult Blood Positive H (Negative) Blood Type Blood Type Confirm Blood Type Recheck Antibody Screen Spec Expiration Date 10/26/18 Range/Units 11:54 WBC (3.8-10.6) k/uL RBC (3.80-5.40) m/uL Hgb (11.4-16.0) gm/dL Hct (34.0-46.0) % MCV (80.0-100.0) fL MCH (25.0-35.0) pg MCHC (31.0-37.0) g/dL RDW (11.5-15.5) % Plt Count (150-450) k/uL Neutrophils % % Lymphocytes % % Monocytes % % Eosinophils % % Basophils % % Neutrophils # (1.3-7.7) k/uL Lymphocytes # (1.0-4.8) k/uL Monocytes # (0-1.0) k/uL Eosinophils # (0-0.7) k/uL Basophils # (0-0.2) k/uL Manual Slide Review RBC Morphology PT (9.0-12.0) sec INR (<1.2) APTT (22.0-30.0) sec Sodium (137-145) mmol/L Potassium (3.5-5.1) mmol/L Chloride (98-107) mmol/L Carbon Dioxide (22-30) mmol/L Anion Gap mmol/L BUN (7-17) mg/dL Creatinine (0.52-1.04) mg/dL Est GFR (CKD-EPI)AfAm (>60 ml/min/1.73 sqM) Est GFR (CKD-EPI)NonAf (>60 ml/min/1.73 sqM) Glucose (74-99) mg/dL Calcium (8.4-10.2) mg/dL Magnesium (1.6-2.3) mg/dL Total Bilirubin (0.2-1.3) mg/dL AST (14-36) U/L ALT (9-52) U/L Alkaline Phosphatase (38-126) U/L Creatine Kinase (30-135) U/L Troponin I (0.000-0.034) ng/mL Total Protein (6.3-8.2) g/dL Albumin (3.5-5.0) g/dL Stool Occult Blood (Negative) Blood Type Blood Type Confirm B Positive Blood Type Recheck Antibody Screen Spec Expiration Date - Radiology Data Radiology results: report reviewed (I did review the imaging and report no acute findings.), image reviewed Critical Care Time Critical Care Time: Yes Critical Care Time: 35 minutes of critical care time which includes initial presentation with history physical labs x-rays several reevaluation the patient. Discussed with the main physician discussed with the consult. Admission orders and documentation of the above Disposition Clinical Impression: Hematochezia, Acute GI hemorrhage, Anemia, Thrombocytosis, Coumadin toxicity Disposition: ADMITTED IP TO THIS [facility] Condition: Serious Referrals: Irasema Chawla DO [Primary Care Provider] - 1-2 days
[2018-10-26 10:37] LABS: Basophils # (A) 0.1 k/uL (0-0.2); Basophils % (A) 1 %; Eosinophils # (A) 0.1 k/uL (0-0.7); Eosinophils % (A) 1 %; HCT 26.2 % (34.0-46.0); HGB 8.5 gm/dL (11.4-16.0); Lymphocytes % (A) 7 %; MCH 26.9 pg (25.0-35.0); MCHC 32.4 g/dL (31.0-37.0); MCV 83.1 fL (80.0-100.0); Mean Platelet Volume 7.8; Monocytes # (A) 1.2 k/uL (0-1.0); Monocytes % (A) 7 %; Neutrophils # (A) 12.7 k/uL (1.3-7.7); Neutrophils % (A) 81 %; RBC 3.16 m/uL (3.80-5.40); WBC 15.6 k/uL (3.8-10.6)
[2018-10-26 10:40] LABS: Albumin 3.5 g/dL (3.5-5.0); Calcium 8.7 mg/dL (8.4-10.2); Magnesium 2.3 mg/dL (1.6-2.3); Potassium 4.4 mmol/L (3.5-5.1); Total Protein 5.7 g/dL (6.3-8.2)
[2018-10-26 10:43] LABS: Partial Thromboplastin Time 55.8 sec (22.0-30.0)
--- NOTE | 2018-10-26 10:47 | XR ---
EXAMINATION TYPE: XR chest 1V portable DATE OF EXAM: 10/26/2018 Comparison: 05/20/2017 Clinical History: 88-year-old female with fall and pain Findings: Heart borderline to mildly enlarged. Atherosclerotic arch calcifications. Mild strandy atelectasis at the right base. No consolidation or pleural effusion. Degenerative changes of both shoulders. Impression: Borderline to mild cardiomegaly. Chronic appearing changes. No definite acute process.
[2018-10-26 10:49] LABS: Prothrombin Time >130.0 sec (9.0-12.0)
[2018-10-26 10:50] LABS: INR >10.0 (<1.2)
[2018-10-26] MEDS ORDERED: PHYTONADIONE 10 MG in SODIUM CHLORIDE 0.9% 50 ML IVPB STA (11:00)
[2018-10-26 11:12] LABS: Platelet Count 1516 k/uL (150-450)
[2018-10-26] MEDS ORDERED: NALOXONE 0.4 MG/ML 1 ML VIAL IV PRN (12:22)
[2018-10-26] MEDS ORDERED: NITROGLYCERIN SL TABS 0.4 MG TAB SUBLINGUAL PRN (12:26)
[2018-10-26] MEDS: SODIUM CHLORIDE 0.9% 1,000 ML IV SCH (14:19)
[2018-10-26 14:39] LABS: Glucose,Whole Blood 123 mg/dL (75-99)
[2018-10-26] MEDS ORDERED: IPRATROPIUM-ALBUTEROL 3 ML NEB INHALATION PRN (14:42)
[2018-10-26 15:56] LABS: Appearance,Urine Clear (Clear); Bilirubin,Urine Negative (Negative); Blood,Urine Negative (Negative); Color,Urine Yellow; Glucose,Urine (UA) Negative (Negative); Ketones,Urine Negative (Negative); Leukocyte Esterase,Urine Negative (Negative); Nitrite,Urine Negative (Negative); Protein,Urine Negative (Negative); Specific Gravity,Urine 1.018 (1.001-1.035); Urobilinogen,Urine <2.0 mg/dL (<2.0)
--- NOTE | 2018-10-26 16:12 | CONS ---
CONSULTATION PULMONARY/CRITICAL CARE CONSULTATION: DATE OF SERVICE: 10/26/2018 This is an 88-year-old female whom I am asked to see here in the ICU. I was actually called by the ER physician. 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 In addition she has been having some burgundy stools as well. Her INR was greater than 10. She was also complaining of diarrhea. She has not been on any antibiotics to explain the elevated PT/INR. The patient used to see Dr. Chaparro but now sees Dr. Chawla in [place]. She apparently came to the emergency room not only complaining about black tarry stools, but also complaining of being weak, lightheaded and dizzy. For that reason, she was evaluated and admitted. Because of the elevated PT/INR, what appears to be a GI bleed, and her symptomatic dizziness and lightheadedness as well as weakness, she was admitted to the ICU. In addition, her blood pressure was a tad low. She apparently also fell yesterday and injured her right wrist but refused to come to the hospital at that time. She is complaining of some diffuse abdominal discomfort. Currently she is resting comfortably in the ICU. Nasal oxygen in place. She is getting a basic IV 100 mL/hour. HOME MEDICATIONS: Include: 1. Albuterol updrafts. 2. Singulair. 3. Aspirin. 4. Hydrochlorothiazide. 5. Losartan. 6. Nitroglycerin. 7. Zocor. 8. Lasix. 9. Potassium chloride. 10.Tylenol #3. 11.Celebrex. 12.Warfarin. 13.Amlodipine. 14.Flovent inhaler. ALLERGIES: Include IV DYE and PENICILLIN. PAST MEDICAL HISTORY: Reviewed. Her past medical history is consistent with possible COPD from previous tobacco use, deep venous thrombosis, hyperlipidemia, hypertension, myocardial infarction, DJD, CAD with previous stent placement, pneumonia, pulmonary embolism and CHF. She also apparently suffers from macular degeneration in both eyes and is legally blind. She also has a history of rheumatic fever, eczema, psoriasis and mononucleosis at a young age. She apparently also has a previous history of pyelonephritis when she was a child. SURGICAL HISTORY: Includes previous cholecystectomy, hysterectomy, joint replacement, tonsillectomy, cataract surgery in the left eye, and a previous ERCP as well. The patient has also had previous catheterization with stent placement, right breast biopsy that was positive for cancer, status post lumpectomy and radiation therapy, D&C, total hysterectomy and bilateral knee replacement. SOCIAL HISTORY: Positive for previous tobacco use. She quit many years back. She denies any alcohol use or illicit drug use. FAMILY HISTORY: Positive for colon cancer, CVA, and glaucoma. REVIEW OF SYSTEMS: CONSTITUTIONAL: Weakness, lightheadedness, dizziness. NEUROLOGIC: Lightheadedness and dizziness. HEENT: Negative. CARDIOVASCULAR: Negative. PULMONARY: Negative. GI: Burgundy stools and black tarry stools. : Negative. RHEUMATOLOGIC: Negative. IMMUNOLOGIC: Negative. ENDOCRINOLOGIC: Negative. DERMATOLOGIC: Negative. PHYSICAL EXAMINATION: Current vital signs are reviewed. Temperature is 98.3, heart rate 85, respiratory rate 14, blood pressure 191/69 and a mean of 76, and room-air saturation 97%. Appears in no acute distress. No conversational dyspnea. She is awake and alert. HEENT examination is grossly unremarkable. No supplemental oxygen. NECK: Supple. Full range of motion. No adenopathy. Cardiovascular examination reveals irregular rhythm and rate. S1, S2 normal. No S3, S4. There is a loud systolic murmur. Lungs reveal relatively clear breath sounds. No wheezes, rhonchi or crackles. ABDOMEN: Soft. There is some mild tenderness throughout the abdomen. It does not localize. She does not have a surgical belly. Bowel sounds are heard. Extremities are intact. No cyanosis, clubbing or edema. Skin without rash. Neurologic examination is nonfocal. LABORATORY DATA: Reviewed. White count 15.6, hemoglobin 8.5, hematocrit 26.2, platelet count 1,516,000. Her PT and INR were greater than 130 and greater than 10, respectively. PTT is 55.8. Sodium 132, potassium 4.4, chloride 95, CO2 of 27. Anion gap is 10. BUN and creatinine were 62 and 1.23. Glucose is 113. Stools for occult blood were positive. Troponin was normal at 0.019. No N-terminal proBNP, but I asked the nurse to order one. Chest x-ray shows borderline cardiomegaly. No acute abnormalities noted. Medications are reviewed. She is currently on Pepcid, Narcan, nitroglycerin sublingually, Protonix, vitamin K, and 0.9 at 100 mL/hour. ASSESSMENT: 1. Gastrointestinal bleed; upper gastrointestinal bleed versus lower gastrointestinal bleed. 2. Anemia secondary to gastrointestinal bleed. 3. Thrombocytosis/thrombocythemia of unclear etiology. 4. Coumadin-induced coagulopathy. 5. Prerenal azotemia. 6. History of deep venous thrombosis/pulmonary embolism. 7. History of hyperlipidemia. 8. History of hypertension. 9. Previous myocardial infarction. 10.Degenerative joint disease. 11.Possible chronic obstructive pulmonary disease. 12.History of congestive heart failure. 13.Previous coronary arteriography with stent placements. 14.Macular degeneration. 15.History of eczema. 16.History of psoriasis. 17.History of rheumatic fever. 18.Multiple other medical problems and comorbidities. PLAN: The patient received some vitamin K in the emergency room. Will await the repeat PT/INR. Currently she is not actively bleeding. Her blood pressure is a bit low. We will watch her here in the unit. She could probably benefit from some additional volume. Additional recommendations and suggestions are forthcoming. Respiratory status is stable. MMODL / IJN: [id number] /
--- NOTE | 2018-10-26 16:29 | P.HPIM ---
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 She is legally blind so she can't tell what color it is. Family members have been telling her that she does have black stool. . Patient has been having maroon-colored stools along with close bowel movements which has been present for the past 1 week. He has been feeling very weak. No complaints of chest pain. No complaints of shortness of breath. Does have some upper abdominal discomfort. No leg swelling. Denied any fever or chills. Patient does have nausea. No vomiting. No history of prior GI bleed. Patient does take Coumadin at home. Patient is following with orthopedic surgery for chronic right hip pain. Patient was on Medrol Dosepak about 3 weeks ago as also taking Celebrex about a week ago. Hemoglobin 8.5 and INR greater than 10, platelet count is than 1500, WBC 15.6, BUNs 62 creatinine 1.23, UA negative for infection. FOBT positive. Hemoglobin was around 12 during previous admission. Patient was given a dose of vitamin K in the ER. Review of Systems Constitutional: Patient denies any fever or chills . No generalized weakness or weight loss. Abdomen: Agent does have nausea and abdominal discomfort. No episodes of vomiting. Dark-colored stools.. Cardiovascular: Patient denies any chest pain or short of breath no palpitations. Respiratory: patient denied any cough is from production. No shortness of breath Neurologic: Patient denied any numbness or tingling headache. Musculoskeletal: Patient denies any complaints of joint swelling or deformity. Skin: Negative Psychiatric: Negative Endocrine: No heat or cold intolerance. No recent weight gain. Genitourinary: No dysuria or hematuria. All other 14 point ROS negative except the above Past Medical History Past Medical History: Atrial Fibrillation, Cancer, Heart Failure, COPD, Deep Vein Thrombosis (DVT), Eye Disorder, Hyperlipidemia, Hypertension, Myocardial Infarction (OK), Osteoarthritis (OA), Pneumonia, Pulmonary Embolus (PE) Additional Past Medical History / Comment(s): Pulmonary fibrosis, L pleural effusion, severe aortic stenosis, murmur, rheumatic fever as a child, silent OK, legally blind d/t macular degeneration, polynephritis as a child, generalized arthritis, chronic low back pain, DDD and nerve damage-pain goes down R leg, R breast cancer with surgery/radiation. Last Myocardial Infarction Date:: unk-silent History of Any Multi-Drug Resistant Organisms: None Reported Past Surgical History: Breast Surgery, Cholecystectomy, Heart Catheterization With Stent, Hysterectomy, Joint Replacement, Tonsillectomy Additional Past Surgical History / Comment(s): R breast biopsy, R breast lumpe ctomy, D&C, bilateral eye cataract removals/lens implants, Past Anesthesia/Blood Transfusion Reactions: No Reported Reaction Date of Last Stent Placement:: 2014 Smoking Status: Former smoker - Past Family History Sister(s) Family Medical History: Cancer Additional Family Medical History / Comment(s): colon ca Father Family Medical History: CVA/TIA Additional Family Medical History / Comment(s): had a stroke in his 60's Mother Additional Family Medical History / Comment(s): glaucoma Medications and Allergies Home Medications Medication Instructions Recorded Confirmed Type Albuterol Nebulized [Ventolin 2.5 mg INHALATION RT-Q6H PRN 11/16/14 10/26/18 History Nebulized] Montelukast [Singulair] 10 mg PO DAILY 11/16/14 10/26/18 History Aspirin 81 mg PO DAILY 07/29/16 10/26/18 History Hydrochlorothiazide [Hydrodiuril] 25 mg PO DAILY 07/29/16 10/26/18 History Losartan Potassium [Cozaar] 100 mg PO DAILY 07/29/16 10/26/18 History Nitroglycerin Sl Tabs [Nitrostat] 0.4 mg SUBLINGUAL Q5M PRN 07/29/16 10/26/18 History Simvastatin [Zocor] 40 mg PO HS 07/29/16 10/26/18 History Warfarin Sodium [Coumadin] 4 mg PO HS #0 08/01/16 10/26/18 Rx amLODIPine [Norvasc] 5 mg PO DAILY #30 tab 02/10/17 10/26/18 Rx Fluticasone Propionate [Flovent 2 puff INHALATION DAILY #1 inhaler 04/09/1709/01 Rx Hfa 220MCG] Furosemide [Lasix] 20 mg PO DAILY 05/19/17 10/26/18 History Potassium Chloride [Klor-Con 10] 10 meq PO DAILY 05/19/17 10/26/18 History Acetaminophen-Codeine 300-30mg 1 tab PO Q6H PRN 10/26/18 10/26/18 History [Tylenol w/codeine #3] Celecoxib [CeleBREX] 200 mg PO DAILY@1200 10/26/18 10/26/18 History Allergies Allergy/AdvReac Type Severity Reaction Status Date / Time Iodinated Contrast- Oral and Allergy Severe Rash/Hives Verified 10/26/18 09:44 IV Dye [Iodinated Contrast Media - Oral and] Penicillins Allergy Rash/Hives Verified 10/26/18 09:44 Physical Exam Vitals: Vital Signs Temp Pulse Resp BP Pulse Ox 10/26/18 15:00 79 17 108/69 10/26/18 14:30 71 21 91/69 96 10/26/18 14:02 86 14 91/69 92 L 10/26/18 13:30 85 18 109/53 97 10/26/18 13:00 94 18 107/66 97 10/26/18 12:30 85 18 114/60 98 10/26/18 12:00 88 18 101/62 98 10/26/18 11:30 78 18 105/70 98 10/26/18 11:00 75 18 92/56 98 10/26/18 10:30 80 18 81/60 96 10/26/18 10:00 95 18 108/65 96 10/26/18 09:34 98.3 F 80 18 108/65 100 Intake and Output 10/26/18 10/26/18 10/26/18 06:59 14:59 22:59 Intake Total 100 100 Output Total 225 Balance 100 -125 Intake: Intake, IV Titration 100 100 Amount Sodium Chloride 0.9% 1, 100 100 000 ml @ 100 mls/hr IV . Q10H [facility] Rx#:[id number] Output: Urine 225 Other: Weight 83.915 kg PHYSICAL EXAMINATION: Patient is lying in the bed comfortably, no acute distress, awake alert and oriented.. HEENT: Normocephalic. Neck is supple. Pupils reactive. Nostrils clear. Oral cavity is moist. Ears reveal no drainage. Neck reveals no JVD, carotid bruits, or thyromegaly. CHEST EXAMINATION: Trachea is central. Symmetrical expansion. Lung gottlieb clear to auscultation and percussion. CARDIAC: Normal S1, S2 with no gallops. Systolic murmur present. Irregularly irregular rhythm. ABDOMEN: Soft. Bowel sounds normal. No organomegaly. No abdominal bruits. Extremities: reveal no edema. No clubbing or cyanosis Neurologically awake, alert, oriented x3 with well-coordinated movements. No focal deficits noted Skin: No rash or skin lesions. Psychiatric: Coperative. Nonsuicidal Musculoskeletal: No joint swelling or deformity. Normal range of motion. Results CBC & Chem 7: 10/26/18 09:52 10/26/18 09:52 Labs: Abnormal Lab Results - Last 24 Hours (Table) 10/26/18 10/26/18 10/26/18 Range/Units 09:52 09:52 09:52 WBC 15.6 H (3.8-10.6) k/uL RBC 3.16 L (3.80-5.40) m/uL Hgb 8.5 L (11.4-16.0) gm/dL Hct 26.2 L (34.0-46.0) % RDW 16.0 H (11.5-15.5) % Plt Count 1516 H* (150-450) k/uL Neutrophils # 12.7 H (1.3-7.7) k/uL Monocytes # 1.2 H (0-1.0) k/uL PT >130.0 H (9.0-12.0) sec INR >10.0 H* (<1.2) APTT 55.8 H (22.0-30.0) sec Sodium 132 L (137-145) mmol/L Chloride 95 L (98-107) mmol/L BUN 62 H (7-17) mg/dL Creatinine 1.23 H (0.52-1.04) mg/dL Glucose 113 H (74-99) mg/dL POC Glucose (mg/dL) (75-99) mg/dL Total Protein 5.7 L (6.3-8.2) g/dL Stool Occult Blood (Negative) 05/13/19 05/13/19 Range/Units 10:09 14:27 WBC (3.8-10.6) k/uL RBC (3.80-5.40) m/uL Hgb (11.4-16.0) gm/dL Hct (34.0-46.0) % RDW (11.5-15.5) % Plt Count (150-450) k/uL Neutrophils # (1.3-7.7) k/uL Monocytes # (0-1.0) k/uL PT (9.0-12.0) sec INR (<1.2) APTT (22.0-30.0) sec Sodium (137-145) mmol/L Chloride (98-107) mmol/L BUN (7-17) mg/dL Creatinine (0.52-1.04) mg/dL Glucose (74-99) mg/dL POC Glucose (mg/dL) 123 H (75-99) mg/dL Total Protein (6.3-8.2) g/dL Stool Occult Blood Positive H (Negative) Thrombosis Risk Factor Assmnt - DVT/VTE Prophylaxis DVT/VTE Prophylaxis: Mechanical Prophylaxis ordered - Choose All That Apply Any of the Below Risk Factors Present?: Yes Each Factor Represents 1 point: Obesity (BMI >25) Other Risk Factors: Yes Each Risk Factor Represents 2 Points: Malignancy Each Risk Factor Represents 3 Points: Age 75 years or older Other congenital or acquired thrombophilia - If yes, enter type in comment: No Thrombosis Risk Factor Assessment Total Risk Factor Score: 6 Thrombosis Risk Factor Assessment Level: High Risk Assessment and Plan Assessment: Acute blood loss anemia secondary to GI bleed likely upper GI Symptomatic anemia Supratherapeutic INR level greater than 10 History of DVT/PE multiple episodes Chronic atrial fibrillation Coronary artery disease with history of stent placement Chronic CHF with ejection fraction unknown Hypertension Hyperlipidemia History of [place] Osteoarthritis of multiple joints Right hip pain and is planning for orthopedic procedure Pulmonary fibrosis Severe aortic stenosis History of rheumatic fever as a child Legally blind due to macular degeneration Chronic low back pain History of right breast cancer with surgery/radiation/right breast lumpectomy Previous history of smoking DVT prophylaxis with SCDs Plan: Patient will be continued on IV hydration, Protonix IV twice a day, 40 milligrams and monitor H&H closely. Patient was given a dose of vitamin K in the ER. Hold Coumadin. Monitor INR level. Hold blood pressure medications due to hypotension. Continue with breathing treatments as needed.. Gastroenterology will be consulted. Further recommendations based on the clinical course. Prognosis is guarded with multiple medical problems and comorbid conditions. Discussed with the patient and her daughter at bedside in detail. Time with Patient: Greater than 30
[2018-10-26 17:18] LABS: Anisocytosis Slight; Basophils # (A) 0.1 k/uL (0-0.2); Basophils % (A) 0 %; Eosinophils # (A) 0.1 k/uL (0-0.7); Eosinophils % (A) 0 %; HCT 22.9 % (34.0-46.0); HGB 7.6 gm/dL (11.4-16.0); Lymphocytes % (A) 4 %; MCH 27.5 pg (25.0-35.0); MCV 83.4 fL (80.0-100.0); Mean Platelet Volume 8.2; Monocytes # (A) 1.4 k/uL (0-1.0); Monocytes % (A) 6 %; Neutrophils # (A) 22.3 k/uL (1.3-7.7); Neutrophils % (A) 87 %; RBC 2.75 m/uL (3.80-5.40); RDW 16.3 % (11.5-15.5); WBC 25.7 k/uL (3.8-10.6)
[2018-10-26 17:34] LABS: Platelet Count 1241 k/uL (150-450)
[2018-10-26] MEDS: IPRATROPIUM-ALBUTEROL 3 ML NEB INHALATION SCH (19:40)
[2018-10-26] MEDS ORDERED: ATORVASTATIN 20 MG TAB PO SCH (21:00)
[2018-10-26] MEDS: PANTOPRAZOLE 40 MG/10 ML VIAL IVP SCH (22:13)
[2018-10-27 01:07] LABS: Anisocytosis Slight; Basophils # (A) 0.1 k/uL (0-0.2); Basophils % (A) 1 %; Eosinophils # (A) 0.1 k/uL (0-0.7); Eosinophils % (A) 1 %; HCT 22.4 % (34.0-46.0); HGB 7.1 gm/dL (11.4-16.0); Lymphocytes # (A) 0.9 k/uL (1.0-4.8); Lymphocytes % (A) 5 %; MCH 26.7 pg (25.0-35.0); MCHC 31.7 g/dL (31.0-37.0); MCV 84.5 fL (80.0-100.0); Mean Platelet Volume 7.6; Monocytes # (A) 1.2 k/uL (0-1.0); Monocytes % (A) 7 %; Neutrophils # (A) 13.4 k/uL (1.3-7.7); Neutrophils % (A) 82 %; RBC 2.65 m/uL (3.80-5.40); RDW 16.4 % (11.5-15.5); WBC 16.5 k/uL (3.8-10.6)
[2018-10-27 01:18] LABS: Platelet Count 1269 k/uL (150-450)
[2018-10-27] MEDS ORDERED: ONDANSETRON 4 MG/2 ML VIAL IVP PRN (01:39)
[2018-10-27 01:41] LABS: Large Platelets Present; Polychromasia Present
[2018-10-27] MEDS: SODIUM CHLORIDE 0.9% 1,000 ML IV SCH ×2 (01:56→13:40)
[2018-10-27] MEDS ORDERED: SODIUM CHLORIDE 0.9% 1,000 ML IV ONE ×2 (03:19→06:28)
[2018-10-27 05:24] LABS: INR 1.4 (<1.2); Prothrombin Time 13.9 sec (9.0-12.0)
[2018-10-27 05:26] LABS: Anisocytosis Slight; HCT 21.2 % (34.0-46.0); MCH 28.2 pg (25.0-35.0); MCHC 32.7 g/dL (31.0-37.0); MCV 86.1 fL (80.0-100.0); RBC 2.46 m/uL (3.80-5.40); RDW 16.8 % (11.5-15.5); WBC 18.9 k/uL (3.8-10.6)
[2018-10-27 05:28] LABS: Calcium 8.1 mg/dL (8.4-10.2); Magnesium 2.4 mg/dL (1.6-2.3); Potassium 4.1 mmol/L (3.5-5.1)
[2018-10-27 05:30] LABS: Platelet Count 1402 k/uL (150-450)
[2018-10-27 05:36] LABS: HGB 6.9 gm/dL (11.4-16.0)
[2018-10-27 05:58] LABS: Band Neutrophils % 1 %; Eosinophils # (M) 0.19 k/uL (0-0.7); Lymphocytes # (M) 0.95 k/uL (1.0-4.8); Metamyelocytes # (M) 0.19 k/uL (0); Metamyelocytes % 1 %; Monocytes # (M) 0.19 k/uL (0-1.0); Myelocytes # (M) 0.57 k/uL (0); Myelocytes % 3 %; Neutrophils % (M) 89 %; Nucleated Red Blood Cells 0 /100 WBC (0-0); Polychromasia Present; Total Cells Counted 200
[2018-10-27] MEDS: NOREPINEPHRINE 4 MG in SODIUM CHLORIDE 0.9% 250 ML IV SCH ×2 (06:07→13:43)
[2018-10-27] MEDS: IPRATROPIUM-ALBUTEROL 3 ML NEB INHALATION SCH ×3 (07:18→21:13)
[2018-10-27] MEDS ORDERED: FLUTICASONE 220 MCG INHALER INHALATION SCH (08:00)
--- NOTE | 2018-10-27 08:46 | PN ---
PROGRESS NOTE DATE OF SERVICE: October 27, 2018 This is an 88-year-old female who I saw yesterday in consultation. I was called by the ER physician. 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 She was also having burgundy stools. Anyway, her INR was greater than 10 and for that reason, she was admitted to the ICU. The patient is DO NOT RESUSCITATE patient. This morning, according to the nurse, she developed some issues with low blood pressure. I have asked her to give her some fluids and we started her on some norepinephrine. Her hemoglobin this morning was 6.9. We are going to give her another unit of blood. The patient is pale. She is not having any respiratory difficulty or distress. She is not requiring any supplemental oxygen at this time. I did talk to the daughter yesterday about the patient. The daughter has been notified of the patient's change in status. Her primary care physician used to be Dr. Chaparro, but now it is Dr. Chawla over in [place]. Current vital signs are reviewed. Her temperature 97.9 heart rate 109, respiratory rate 28, blood pressure was 91/53, mean 65, room air saturation 94%. She appears pale. No distress. Certainly no respiratory distress. HEENT: Examination is grossly unremarkable. Mucous membranes are bit dry. NECK: Supple. Full range of motion. No adenopathy. Neck veins are flat. CARDIOVASCULAR: Examination revealed mild tachycardia. Heart rate since starting the Levophed has been anywhere from 109 up to 140. It is regular. S1, S2 normal. LUNGS: Reveal mostly clear breath sounds. No wheezes or rhonchi. ABDOMEN: Soft. Bowel sounds are noted. She has got some very mild tenderness particularly in the left lower quadrant. EXTREMITIES: Are intact. Mild edema noted. SKIN: Without rash. NEUROLOGIC: Examination is brief but nonfocal. Microbiology is negative. No recent chest x-ray. The labs are reviewed. White count 18.9, hemoglobin 6.9, down from 7.1, hematocrit 21.2, platelet count 1,402,000. PT 13.9, INR 1.4. Sodium 134, potassium 4.1, chloride 105, CO2 is 20. BUN and creatinine were 57 and 1.26. Urine is negative. Medications are reviewed. ASSESSMENT: 1. Gastrointestinal bleed, upper versus lower gastrointestinal bleed. 2. Anemia secondary to gastrointestinal bleed. 3. Thrombocytosis/thrombocythemia of unclear etiology. 4. Coumadin induced coagulopathy, resolved. 5. Prerenal azotemia. 6. History of deep venous thrombosis and pulmonary embolism. 7. History of hypertension. 8. Hyperlipidemia. 9. Previous myocardial infarction. 10.Degenerative joint disease. 11.Possible underlying chronic obstructive pulmonary disease. 12.History of congestive heart failure. 13.Previous coronary arteriography with stent placements for coronary artery disease. 14.Macular degeneration. 15.History of eczema. 16.History of psoriasis. 17.History of rheumatic fever. 18.Multiple other medical problems and comorbidities. PLAN: The patient's PT, INR was reversed with vitamin K. She is not coagulopathic anymore. She is still having GI bleed. She is going to receive a unit of blood today. We have given her fluids for her hypotension. We started some Levophed. She did develop some tachycardia. I told Chan the nurse to call the family and let them know that her prognosis is poor. Respiratory status currently stable. I will add some midodrine 5 mg 3 times a day. MMODL / IJN: [id number] /
[2018-10-27] MEDS ORDERED: MONTELUKAST 10 MG TAB PO SCH (09:00)
--- NOTE | 2018-10-27 09:00 | XR ---
EXAMINATION TYPE: XR chest 1V portable DATE OF EXAM: 10/27/2018 Comparison: 10/26/2018 Clinical History: 88-year-old female shortness of breath, assess lungs Findings: Semiupright exam. Patient is obliqued and off centered. Heart borderline enlarged. Patchy bibasilar d ensities, left greater than right are demonstrated, increased from prior. Degenerative changes of bot h shoulders. Impression: Limited portable exam with borderline cardiomegaly and increasing left greater than right bibasilar a reas of atelectasis and/or consolidation. Suspect underlying effusion on the left as well.
[2018-10-27 09:44] VITALS: BMI 30.3
[2018-10-27] MEDS: PANTOPRAZOLE 40 MG/10 ML VIAL IVP SCH (10:30)
--- NOTE | 2018-10-27 11:51 | P.CONS ---
History of Present Illness - Reason for Consult Consult date: 10/27/18 GI bleed anemia Requesting physician: Yoni Sharma - Chief Complaint GI bleed - History of Present Illness 88-year-old female legally blind admitted with episodes of bloody stools 4-5 days duration with lower abdominal discomfort. History obtained from family at bedside. 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 Home medications include Celebrex and baby aspirin. She is placed on Celebrex recently secondary to a fall. No history GI bleeds. No history of recent EGD colonoscopy. Last colonoscopy more than 10 years ago. No episodes of gross coffee-ground emesis hematemesis. Bowel movements are described more burgundy in color. Receiving low-dose IV pressors. Heart rate greater than 1 40 bpm. Admission hemoglobin 8.5. MCV 83. Platelet 1516. BUN 62. Creatinine 1.2. INR greater than 10 received reversal agents present INR is 1.4. Current hemoglobin is 6.9. Receiving 1 unit of blood. Previous hemoglobin in April 2018 was 12.7. Platelet 867. Hematology consult for thrombocytosis. Review of Systems Constitutional: Denies fever, chills, sweats, weight gain, or loss. HEENT: Negative for migraines, legally blind, earaches, drainage, tinnitus, oral mucosal lesions, dysphagia, or odynophagia. CARDIAC: Negative for chest pain, arrhythmias, or palpitation. RESPIRATORY: Negative for shortness of breath, hemoptysis, cough, or sputum production. GI: See HPI for pertinent findings. : Negative for hematuria, urgency, frequency, polyuria, or dysuria. GYNc: Denies possibility of . Negative vaginal discharge. MUSCULOSKELETAL: Negative for muscle aches, swelling, arthritis, and arthralgias. NEUROLOGIC: Negative for stroke or TIA. ENDOCRINE: Negative for thyroid problems. SKIN: Negative for rash or itching. PSYCHIATRIC: Negative history for depression and anxiety Past Medical History Past Medical History: Atrial Fibrillation, Cancer, Heart Failure, COPD, Deep Vein Thrombosis (DVT), Eye Disorder, Hyperlipidemia, Hypertension, Myocardial Infarction ([place]), Osteoarthritis (OA), Pneumonia, Pulmonary Embolus (PE) Additional Past Medical History / Comment(s): Pulmonary fibrosis, L pleural effusion, severe aortic stenosis, murmur, rheumatic fever as a child, silent [place], legally blind d/t macular degeneration, polynephritis as a child, generalized arthritis, chronic low back pain, DDD and nerve damage-pain goes down R leg, R breast cancer with surgery/radiation. Last Myocardial Infarction Date:: unk-silent History of Any Multi-Drug Resistant Organisms: None Reported Past Surgical History: Breast Surgery, Cholecystectomy, Heart Catheterization With Stent, Hysterectomy, Joint Replacement, Tonsillectomy Additional Past Surgical History / Comment(s): R breast biopsy, R breast lumpectomy, D&C, bilateral eye cataract removals/lens implants, Past Anesthesia/Blood Transfusion Reactions: No Reported Reaction Date of Last Stent Placement:: 2014 Smoking Status: Former smoker - Past Family History Sister(s) Family Medical History: Cancer Additional Family Medical History / Comment(s): colon ca Father Family Medical History: CVA/TIA Additional Family Medical History / Comment(s): had a stroke in his 60's Mother Additional Family Medical History / Comment(s): glaucoma Medications and Allergies Home Medications Medication Instructions Recorded Confirmed Type Albuterol Nebulized [Ventolin 2.5 mg INHALATION RT-Q6H PRN 11/16/14 10/26/18 History Nebulized] Montelukast [Singulair] 10 mg PO DAILY 11/16/14 10/26/18 History Aspirin 81 mg PO DAILY 07/29/16 10/26/18 History Hydrochlorothiazide [Hydrodiuril] 25 mg PO DAILY 07/29/16 10/26/18 History Losartan Potassium [Cozaar] 100 mg PO DAILY 07/29/16 10/26/18 History Nitroglycerin Sl Tabs [Nitrostat] 0.4 mg SUBLINGUAL Q5M PRN 07/29/16 10/26/18 History Simvastatin [Zocor] 40 mg PO HS 07/29/16 10/26/18 History Warfarin Sodium [Coumadin] 4 mg PO HS #0 08/01/16 10/26/18 Rx amLODIPine [Norvasc] 5 mg PO DAILY #30 tab 02/10/17 10/26/18 Rx Fluticasone Propionate [Flovent 2 puff INHALATION DAILY #1 inhaler 04/09/17 10/26/18 Rx Hfa 220MCG] Furosemide [Lasix] 20 mg PO DAILY 05/19/17 10/26/18 History Potassium Chloride [Klor-Con 10] 10 meq PO DAILY 05/19/17 10/26/18 History Acetaminophen-Codeine 300-30mg 1 tab PO Q6H PRN 10/26/18 10/26/18 History [Tylenol w/codeine #3] Celecoxib [CeleBREX] 200 mg PO DAILY@1200 10/26/18 10/26/18 History Allergies Allergy/AdvReac Type Severity Reaction Status Date / Time Iodinated Contrast- Oral and Allergy Severe Rash/Hives Verified 10/26/18 09:44 IV Dye [Iodinated Contrast Media - Oral and] Penicillins Allergy Rash/Hives Verified 10/26/18 09:44 Physical Exam Vitals: Vital Signs Temp Pulse Resp BP Pulse Ox 10/27/18 09:00 124 H 25 H 82/31 10/27/18 08:40 129 H 29 H 64/52 10/27/18 08:30 142 H 28 H 82/53 10/27/18 08:23 97.5 F L 124 H 28 H 82/53 10/27/18 08:00 97.5 F L 112 H 29 H 95/63 10/27/18 07:30 112 H 24 78/52 10/27/18 07:00 109 H 28 H 91/53 94 L 10/27/18 06:30 140 H 19 65/48 98 10/27/18 06:00 106 H 25 H 67/45 10/27/18 05:30 97 24 78/47 10/27/18 05:00 111 H 40 H 71/44 96 10/27/18 04:30 97.9 F 98 24 78/50 96 10/27/18 04:00 106 H 20 72/48 98 10/27/18 03:30 97 22 76/52 93 L 10/27/18 03:00 112 H 22 78/53 95 10/27/18 02:30 98 24 86/59 93 L 10/27/18 02:00 91 24 102/62 94 L 10/27/18 01:30 75 22 96/69 97 10/27/18 01:00 74 24 80/49 92 L 10/27/18 00:30 57 L 20 90/67 97 10/27/18 00:00 97.4 F L 71 24 97/65 91 L 10/26/18 23:00 66 13 105/50 92 L 10/26/18 22:30 77 20 105/50 95 10/26/18 22:00 61 19 102/45 93 L 10/26/18 21:30 64 18 90/45 95 10/26/18 21:00 97.5 F L 75 21 88/49 91 L 10/26/18 20:30 65 21 88/44 93 L 10/26/18 20:00 74 18 103/42 92 L 10/26/18 19:30 66 17 105/61 94 L 10/26/18 19:00 71 11 L 110/52 91 L 10/26/18 18:30 71 17 117/61 95 10/26/18 18:00 76 16 114/56 95 10/26/18 17:30 75 23 112/59 94 L 10/26/18 17:00 82 13 10/26/18 16:30 87 16 112/59 10/26/18 16:00 98.6 F 73 16 110/56 10/26/18 15:30 80 17 110/56 10/26/18 15:00 79 17 108/69 10/26/18 14:30 71 21 91/69 96 10/26/18 14:02 86 14 91/69 92 L 10/26/18 13:30 85 18 109/53 97 10/26/18 13:00 94 18 107/66 97 10/26/18 12:30 85 18 114/60 98 10/26/18 12:00 88 18 101/62 98 10/26/18 11:30 78 18 105/70 98 10/26/18 11:00 75 18 92/56 98 10/26/18 10:30 80 18 81/60 96 10/26/18 10:00 95 18 108/65 96 10/26/18 09:34 98.3 F 80 18 108/65 100 Intake and Output 10/26/18 10/27/18 10/27/18 22:59 06:59 14:59 Intake Total 800 2800 1019.955 Output Total 635 207 0 Balance 165 2593 1019.955 Intake: IV 2700 1000 Sodium Chloride 0.9% 1, 2700 1000 000 ml @ 100 mls/hr IV . Q10H [facility] Rx#:[id number] Intake, IV Titration 800 100 19.955 Amount Norepinephrine 4 mg In 19.955 Sodium Chloride 0.9% 250 ml @ 0.05 MCG/KG/MIN 15. 754 mls/hr IV .Q16H8M [facility] Rx#:[id number] Sodium Chloride 0.9% 1, 800 100 000 ml @ 100 mls/hr IV . Q10H [facility] Rx#:[id number] Blood Product 0 Rc As-1 Unit 0 [id number] Output: Urine 635 207 0 Other: Voiding Method Indwelling Catheter Indwelling Catheter # Voids 40 # Bowel Movements 1 1 Weight 82.7 kg General appearance: The patient is alert, oriented, in no acute distress. HET: Head is normocephalic and atraumatic. Pupils are equal and reactive. Oropharynx is clear without lesions. Neck: Supple without lymphadenopathy. Trachea midline. Heart: S1 S2. Regular rate and rhythm. Lungs: No crackles or wheezes are heard. Abdomen: Soft, very mild tenderness to the left lower abdomen, nondistended with bowel sounds. No peritoneal signs. No palpable organomegaly or masses. Extremities: Normal skin color and turgor. No cyanosis, rash, ulceration, clubbing, or edema. Radial and pedal pulses are 2/4 bilaterally. Neurological: No focal deficits. Strength and sensation are grossly intact. Results CBC & Chem 7: 10/27/18 05:01 10/27/18 05:01 Labs: Abnormal Lab Results - Last 24 Hours (Table) 10/26/18 10/26/18 10/26/18 Range/Units 09:50 09:52 09:52 WBC 15.6 H (3.8-10.6) k/uL RBC 3.16 L (3.80-5.40) m/uL Hgb 8.5 L (11.4-16.0) gm/dL Hct 26.2 L (34.0-46.0) % RDW 16.0 H (11.5-15.5) % Plt Count 1516 H* (150-450) k/uL Neutrophils # 12.7 H (1.3-7.7) k/uL Neutrophils # (Manual) (1.3-7.7) k/uL Lymphocytes # (1.0-4.8) k/uL Lymphocytes # (Manual) (1.0-4.8) k/uL Monocytes # 1.2 H (0-1.0) k/uL Metamyelocytes # (Man) (0) k/uL Myelocytes # (Manual) (0) k/uL PT (9.0-12.0) sec INR (<1.2) APTT (22.0-30.0) sec Sodium 132 L (137-145) mmol/L Chloride 95 L (98-107) mmol/L Carbon Dioxide (22-30) mmol/L BUN 62 H (7-17) mg/dL Creatinine 1.23 H (0.52-1.04) mg/dL Glucose 113 H (74-99) mg/dL POC Glucose (mg/dL) (75-99) mg/dL Calcium (8.4-10.2) mg/dL Magnesium (1.6-2.3) mg/dL Total Protein 5.7 L (6.3-8.2) g/dL Stool Occult Blood (Negative) Crossmatch See Detail 10/26/18 10/26/18 10/26/18 Range/Units 09:52 10:09 14:27 WBC (3.8-10.6) k/uL RBC (3.80-5.40) m/uL Hgb (11.4-16.0) gm/dL Hct (34.0-46.0) % RDW (11.5-15.5) % Plt Count (150-450) k/uL Neutrophils # (1.3-7.7) k/uL Neutrophils # (Manual) (1.3-7.7) k/uL Lymphocytes # (1.0-4.8) k/uL Lymphocytes # (Manual) (1.0-4.8) k/uL Monocytes # (0-1.0) k/uL Metamyelocytes # (Man) (0) k/uL Myelocytes # (Manual) (0) k/uL PT >130.0 H (9.0-12.0) sec INR >10.0 H* (<1.2) APTT 55.8 H (22.0-30.0) sec Sodium (137-145) mmol/L Chloride (98-107) mmol/L Carbon Dioxide (22-30) mmol/L BUN (7-17) mg/dL Creatinine (0.52-1.04) mg/dL Glucose (74-99) mg/dL POC Glucose (mg/dL) 123 H (75-99) mg/dL Calcium (8.4-10.2) mg/dL Magnesium (1.6-2.3) mg/dL Total Protein (6.3-8.2) g/dL Stool Occult Blood Positive H (Negative) Crossmatch 10/26/18 10/27/18 10/27/18 Range/Units 17:00 00:32 05:01 WBC 25.7 H 16.5 H (3.8-10.6) k/uL RBC 2.75 L 2.65 L (3.80-5.40) m/uL Hgb 7.6 L 7.1 L (11.4-16.0) gm/dL Hct 22.9 L 22.4 L (34.0-46.0) % RDW 16.3 H 16.4 H (11.5-15.5) % Plt Count 1241 H* 1269 H* (150-450) k/uL Neutrophils # 22.3 H 13.4 H (1.3-7.7) k/uL Neutrophils # (Manual) (1.3-7.7) k/uL Lymphocytes # 0.9 L (1.0-4.8) k/uL Lymphocytes # (Manual) (1.0-4.8) k/uL Monocytes # 1.4 H 1.2 H (0-1.0) k/uL Metamyelocytes # (Man) (0) k/uL Myelocytes # (Manual) (0) k/uL PT (9.0-12.0) sec INR (<1.2) APTT (22.0-30.0) sec Sodium 134 L (137-145) mmol/L Chloride (98-107) mmol/L Carbon Dioxide 20 L (22-30) mmol/L BUN 57 H (7-17) mg/dL Creatinine 1.26 H (0.52-1.04) mg/dL Glucose 122 H (74-99) mg/dL POC Glucose (mg/dL) (75-99) mg/dL Calcium 8.1 L (8.4-10.2) mg/dL Magnesium 2.4 H (1.6-2.3) mg/dL Total Protein (6.3-8.2) g/dL Stool Occult Blood (Negative) Crossmatch 10/27/18 10/27/18 Range/Units 05:01 05:01 WBC 18.9 H (3.8-10.6) k/uL RBC 2.46 L (3.80-5.40) m/uL Hgb 6.9 L* (11.4-16.0) gm/dL Hct 21.2 L (34.0-46.0) % RDW 16.8 H (11.5-15.5) % Plt Count 1402 H* (150-450) k/uL Neutrophils # (1.3-7.7) k/uL Neutrophils # (Manual) 17.00 H (1.3-7.7) k/uL Lymphocytes # (1.0-4.8) k/uL Lymphocytes # (Manual) 0.95 L (1.0-4.8) k/uL Monocytes # (0-1.0) k/uL Metamyelocytes # (Man) 0.19 H (0) k/uL Myelocytes # (Manual) 0.57 H (0) k/uL PT 13.9 H (9.0-12.0) sec INR 1.4 H (<1.2) APTT (22.0-30.0) sec Sodium (137-145) mmol/L Chloride (98-107) mmol/L Carbon Dioxide (22-30) mmol/L BUN (7-17) mg/dL Creatinine (0.52-1.04) mg/dL Glucose (74-99) mg/dL POC Glucose (mg/dL) (75-99) mg/dL Calcium (8.4-10.2) mg/dL Magnesium (1.6-2.3) mg/dL Total Protein (6.3-8.2) g/dL Stool Occult Blood (Negative) Crossmatch Assessment and Plan (1) Acute GI hemorrhage Narrative/Plan: 88-year-old female admitted with acute upper GI bleed acute blood loss anemia with lower abdominal discomfort bowel movements are described burgundy in color etiology is unclear possible upper GI bleed possible colonic possible small bowel source. Current Visit: Yes Status: Acute Code(s): K92.2 - GASTROINTESTINAL HEMORRHAGE, UNSPECIFIED SNOMED Code(s): 76273891 (2) Coumadin toxicity Current Visit: Yes Status: Acute Code(s): T45.511A - POISONING BY ANTICOAGULANTS, ACCIDENTAL, INIT SNOMED Code(s): 37025257 (3) Thrombocytosis Current Visit: Yes Status: Acute Code(s): D47.3 - ESSENTIAL (HEMORRHAGIC) THROMBOCYTHEMIA SNOMED Code(s): 6970905 Plan: 1. Inpatient EGD was discussed with family at bedside to definitively rule out upper source however patient is not medically stable at this time for endoscopic exam. Continue with nothing by mouth except medications. CBC every 6 hours. IV Protonix 40 mg twice daily. Blood transfusions as indicated. If patient has increased rectal bleeding recommend a tagged RBC scan and/or computed tomography scan of the abdomen. Inpatient colonoscopy was discussed at this time family and patient would like to hold off. 2. Will follow closely with you. Thank you for this kind referral and the opportunity to participate in the care of your patient. This consultation was discussed with Dr. Apodaca. The impression and plan of care have been directed as dictated.
[2018-10-27] MEDS ORDERED: MIDODRINE 5 MG TAB PO SCH (12:30)
[2018-10-27 14:05] VITALS: TEMP 97.4
[2018-10-27 16:00] LABS: HCT 32.9 % (34.0-46.0); HGB 10.4 gm/dL (11.4-16.0); MCH 27.8 pg (25.0-35.0); MCHC 31.6 g/dL (31.0-37.0); MCV 87.9 fL (80.0-100.0); Mean Platelet Volume 8.1; RBC 3.74 m/uL (3.80-5.40); RDW 15.8 % (11.5-15.5); WBC 26.4 k/uL (3.8-10.6)
[2018-10-27 16:08] LABS: Platelet Count 1440 k/uL (150-450)
[2018-10-27 16:19] LABS: Band Neutrophils % 5 %; Large Platelets Present; Lymphocytes # (M) 1.85 k/uL (1.0-4.8); Metamyelocytes # (M) 0.26 k/uL (0); Metamyelocytes % 1 %; Monocytes # (M) 1.58 k/uL (0-1.0); Myelocytes # (M) 0.26 k/uL (0); Myelocytes % 1 %; Neutrophils % (M) 82 %; Nucleated Red Blood Cells 0 /100 WBC (0-0); Poikilocytosis (M) Present; Polychromasia Present; Total Cells Counted 200
[2018-10-27 16:19] LABS: Glucose,Whole Blood 100 mg/dL (75-99)
[2018-10-27] MEDS ORDERED: SODIUM BICARB 8.4% 50 ML SYR (1 MEQ/ML) IV STA ×3 (17:10→17:53)
[2018-10-27] MEDS ORDERED: DEXTROSE 5%-0.45% NACL 1,000 ML with SODIUM BICARB (1 MEQ/ML) 150 ML IV SCH ×4 (17:15→19:00)
[2018-10-27] MEDS ORDERED: LEVOFLOXACIN 250MG-D5W PMX 250 MG in DEXTROSE/WATER 1 50ML.BAG IVPB SCH ×2 (17:30→19:00)
[2018-10-27 17:37] LABS: Anisocytosis Slight; HCT 32.1 % (34.0-46.0); MCH 27.5 pg (25.0-35.0); MCHC 31.4 g/dL (31.0-37.0); Mean Platelet Volume 8.9; RBC 3.67 m/uL (3.80-5.40); RDW 16.2 % (11.5-15.5); WBC 26.3 k/uL (3.8-10.6)
[2018-10-27 17:40] LABS: HGB 10.1 gm/dL (11.4-16.0); MCV 87.7 fL (80.0-100.0); Platelet Count 1335 k/uL (150-450)
[2018-10-27] MEDS ORDERED: SODIUM CHLORIDE 0.9% 1,000 ML IV SCH (17:53)
[2018-10-27] MEDS ORDERED: SODIUM CHLORIDE 0.9% 50 ML with VASOPRESSIN 20 UNIT IVPB SCH ×2 (18:00)
[2018-10-27 18:07] LABS: Band Neutrophils % 7 %; Lymphocytes # (M) 1.32 k/uL (1.0-4.8); Metamyelocytes # (M) 0.79 k/uL (0); Metamyelocytes % 3 %; Monocytes # (M) 0.79 k/uL (0-1.0); Myelocytes # (M) 0.79 k/uL (0); Myelocytes % 3 %; Neutrophils % (M) 81 %; Nucleated Red Blood Cells 0 /100 WBC (0-0); Total Cells Counted 200
[2018-10-27 18:08] LABS: Large Platelets Present; Poikilocytosis (M) Present; Polychromasia Present
[2018-10-27 18:10] LABS: ABG PCO2 27 mmHg (35-45); ABG PH 7.19 (7.35-7.45); ABG PO2 91 mmHg (83-108)
[2018-10-27 18:11] LABS: ABG Base Excess -16.8 mmol/L; ABG HCO3 10 mmol/L (21-25)
[2018-10-27 18:12] LABS: ABG Oxygen Saturation 92.6 % (94-97)
[2018-10-27 18:34] VITALS: BP 123/73; PULSE 0; RESP 0
--- NOTE | 2018-10-27 19:49 | P.CONS ---
History of Present Illness - Reason for Consult Consult date: 10/27/18 thrombocytosis, warfarin Requesting physician: Haile Giron - Chief Complaint Dark tarry stools - History of Present Illness This is a 88-year-old female who has a known history of DVT and pulmonary embolism, on warfarin. Other history includes Chronic Pain mostly in right hip in which she follows orthopedic surgery, Arthritis, Chronic Atrial Fibrillation, CAD, Cardiac stent placement, COPD, HTN, HLD, Severe aortic stenosis, pulmonary fibrosis, and rheumatic fever as a child. She presented to emergency with complaints of black stool for the past week. Main consistency diarrhea. She is legally blind so she can't tell what color it is. Family members have been tel ling her that she does have black stool. She compleained of fatigue and feeling lightheaded when she tries get up and walk or stand. She denied chest pain or shortness of breath. She denied any fevers chills nausea vomiting sweats or other symptoms. She has a history of a gallbladder surgery but no other abdominal surgeries. No prior history of GI bleeding. She did have a recent fall at home this week but refused to come the hospital at that time. She does complain left-sided abdominal pain. She recently was prescribed a medrol dose pack approximately three weeks ago for her chronic pain, as well as, she takes Celebrex in addition to her coumadin. On admission her hemoglobin 8.5, INR was greater than 10, platelet count was greater than 1500, WBC - 15.6 FOBT positive. Vitamin K given in Emergency. Review of Systems 14 point review of systems is fasting completed in all negative except for HPI Past Medical History Past Medical History: Atrial Fibrillation, Cancer, Heart Failure, COPD, Deep Vein Thrombosis (DVT), Eye Disorder, Hyperlipidemia, Hypertension, Myocardial Infarction ([place]), Osteoarthritis (OA), Pneumonia, Pulmonary Embolus ([place]) Additional Past Medical History / Comment(s): Pulmonary fibrosis, L pleural effusion, severe aortic stenosis, murmur, rheumatic fever as a child, silent [place], legally blind d/t macular degeneration, polynephritis as a child, generalized arthritis, chronic low back pain, DDD and nerve damage-pain goes down R leg, R breast cancer with surgery/radiation. Last Myocardial Infarction Date:: unk-silent History of Any Multi-Drug Resistant Organisms: None Reported Past Surgical History: Breast Surgery, Cholecystectomy, Heart Catheterization With Stent, Hysterectomy, Joint Replacement, Tonsillectomy Additional Past Surgical History / Comment(s): R breast biopsy, R breast lumpectomy, D&C, bilateral eye cataract removals/lens implants, Past Anesthesia/Blood Transfusion Reactions: No Reported Reaction Date of Last Stent Placement:: 2014 Smoking Status: Former smoker - Past Family History Sister(s) Family Medical History: Cancer Additional Family Medical History / Comment(s): colon ca Father Family Medical History: CVA/TIA Additional Family Medical History / Comment(s): had a stroke in his 60's Mother Additional Family Medical History / Comment(s): glaucoma Medications and Allergies Home Medications Medication Instructions Recorded Confirmed Type Albuterol Nebulized [Ventolin 2.5 mg INHALATION RT-Q6H PRN 11/16/14 10/26/18 History Nebulized] Montelukast [Singulair] 10 mg PO DAILY 11/16/14 10/26/18 History Aspirin 81 mg PO DAILY 07/29/16 10/26/18 History Hydrochlorothiazide [Hydrodiuril] 25 mg PO DAILY 07/29/16 10/26/18 History Losartan Potassium [Cozaar] 100 mg PO DAILY 07/29/16 10/26/18 History Nitroglycerin Sl Tabs [Nitrostat] 0.4 mg SUBLINGUAL Q5M PRN 07/29/16 10/26/18 History Simvastatin [Zocor] 40 mg PO HS 07/29/16 10/26/18 History Warfarin Sodium [Coumadin] 4 mg PO HS #0 08/01/16 10/26/18 Rx amLODIPine [Norvasc] 5 mg PO DAILY #30 tab 02/10/17 10/26/18 Rx Fluticasone Propionate [Flovent 2 puff INHALATION DAILY #1 inhaler 04/09/17 10/26/18 Rx Hfa 220MCG] Furosemide [Lasix] 20 mg PO DAILY 05/19/17 10/26/18 History Potassium Chloride [Klor-Con 10] 10 meq PO DAILY 05/19/17 10/26/18 History Acetaminophen-Codeine 300-30mg 1 tab PO Q6H PRN 10/26/18 10/26/18 History [Tylenol w/codeine #3] Celecoxib [CeleBREX] 200 mg PO DAILY@1200 10/26/18 10/26/18 History Allergies Allergy/AdvReac Type Severity Reaction Status Date / Time Iodinated Contrast- Oral and Allergy Severe Rash/Hives Verified 10/26/18 09:44 IV Dye [Iodinated Contrast Media - Oral and] Penicillins Allergy Rash/Hives Verified 10/26/18 09:44 Physical Exam Vitals: Vital Signs Temp Pulse Resp BP Pulse Ox 10/27/18 10:00 123 H 14 87/63 10/27/18 09:53 97.3 F L 135 H 18 84/62 97 10/27/18 09:30 121 H 24 90/44 96 10/27/18 09:00 124 H 25 H 82/31 96 10/27/18 08:53 97.6 F 125 H 19 73/51 10/27/18 08:40 129 H 29 H 64/52 10/27/18 08:33 97.5 F L 125 H 29 H 95/71 10/27/18 08:30 142 H 28 H 82/53 10/27/18 08:23 97.5 F L 124 H 28 H 82/53 10/27/18 08:00 97.5 F L 112 H 14 95/63 10/27/18 07:30 112 H 24 78/52 10/27/18 07:00 109 H 28 H 91/53 94 L 10/27/18 06:30 140 H 19 65/48 98 10/27/18 06:00 106 H 25 H 67/45 10/27/18 05:30 97 24 78/47 10/27/18 05:00 111 H 40 H 71/44 96 10/27/18 04:30 97.9 F 98 24 78/50 96 10/27/18 04:00 106 H 20 72/48 98 10/27/18 03:30 97 22 76/52 93 L 10/27/18 03:00 112 H 22 78/53 95 10/27/18 02:30 98 24 86/59 93 L 10/27/18 02:00 91 24 102/62 94 L 10/27/18 01:30 75 22 96/69 97 10/27/18 01:00 74 24 80/49 92 L 10/27/18 00:30 57 L 20 90/67 97 10/27/18 00:00 97.4 F L 71 24 97/65 91 L 10/26/18 23:00 66 13 105/50 92 L 10/26/18 22:30 77 20 105/50 95 10/26/18 22:00 61 19 102/45 93 L 10/26/18 21:30 64 18 90/45 95 10/26/18 21:00 97.5 F L 75 21 88/49 91 L 10/26/18 20:30 65 21 88/44 93 L 10/26/18 20:00 74 18 103/42 92 L 10/26/18 19:30 66 17 105/61 94 L 10/26/18 19:00 71 11 L 110/52 91 L 10/26/18 18:30 71 17 117/61 95 10/26/18 18:00 76 16 114/56 95 10/26/18 17:30 75 23 112/59 94 L 10/26/18 17:00 82 13 10/26/18 16:30 87 16 112/59 10/26/18 16:00 98.6 F 73 16 110/56 10/26/18 15:30 80 17 110/56 10/26/18 15:00 79 17 108/69 10/26/18 14:30 71 21 91/69 96 10/26/18 14:02 86 14 91/69 92 L 10/26/18 13:30 85 18 109/53 97 10/26/18 13:00 94 18 107/66 97 10/26/18 12:30 85 18 114/60 98 10/26/18 12:00 88 18 101/62 98 10/26/18 11:30 78 18 105/70 98 Intake and Output 10/26/18 10/27/18 10/27/18 22:59 06:59 14:59 Intake Total 800 2800 1469.955 Output Total 635 207 10 Balance 165 2593 1459.955 Intake: IV 2700 1140 Sodium Chloride 0.9% 1, 2700 1140 000 ml @ 100 mls/hr IV . Q10H [facility] Rx#:[id number] Intake, IV Titration 800 100 19.955 Amount Norepinephrine 4 mg In 19.955 Sodium Chloride 0.9% 250 ml @ 0.05 MCG/KG/MIN 15. 754 mls/hr IV .Q16H8M [facility] Rx#:[id number] Sodium Chloride 0.9% 1, 800 100 000 ml @ 100 mls/hr IV . Q10H [facility] Rx#:[id number] Blood Product 310 Rc As-1 Unit 310 [id number] Output: Urine 635 207 10 Other: Voiding Method Indwelling Catheter Indwelling Catheter Indwelling Catheter # Voids 40 # Bowel Movements 1 1 Weight 82.7 kg 82.7 kg Gen: Alert and no acute distress Head:M NCNT Neck: Supple No adenopathy on palpation Heart: S1 S2. Regular rate and rhythm. Lungs: No crackles or wheezes. No increased effort Abdomen: Soft, some tenderness left mis and lower Extremities: NNO edema No Rash Neurological: No focal deficits. Results CBC & Chem 7: 10/27/18 16:27 10/27/18 05:01 Labs: Abnormal Lab Results - Last 24 Hours (Table) 10/26/18 10/26/18 10/26/18 Range/Units 09:50 14:27 17:00 WBC 25.7 H (3.8-10.6) k/uL RBC 2.75 L (3.80-5.40) m/uL Hgb 7.6 L (11.4-16.0) gm/dL Hct 22.9 L (34.0-46.0) % RDW 16.3 H (11.5-15.5) % Plt Count 1241 H* (150-450) k/uL Neutrophils # 22.3 H (1.3-7.7) k/uL Neutrophils # (Manual) (1.3-7.7) k/uL Lymphocytes # (1.0-4.8) k/uL Lymphocytes # (Manual) (1.0-4.8) k/uL Monocytes # 1.4 H (0-1.0) k/uL Metamyelocytes # (Man) (0) k/uL Myelocytes # (Manual) (0) k/uL PT (9.0-12.0) sec INR (<1.2) Sodium (137-145) mmol/L Carbon Dioxide (22-30) mmol/L BUN (7-17) mg/dL Creatinine (0.52-1.04) mg/dL Glucose (74-99) mg/dL POC Glucose (mg/dL) 123 H (75-99) mg/dL Calcium (8.4-10.2) mg/dL Magnesium (1.6-2.3) mg/dL Crossmatch See Detail 10/27/18 10/27/18 10/27/18 Range/Units 00:32 05:01 05:01 WBC 16.5 H 18.9 H (3.8-10.6) k/uL RBC 2.65 L 2.46 L (3.80-5.40) m/uL Hgb 7.1 L 6.9 L* (11.4-16.0) gm/dL Hct 22.4 L 21.2 L (34.0-46.0) % RDW 16.4 H 16.8 H (11.5-15.5) % Plt Count 1269 H* 1402 H* (150-450) k/uL Neutrophils # 13.4 H (1.3-7.7) k/uL Neutrophils # (Manual) 17.00 H (1.3-7.7) k/uL Lymphocytes # 0.9 L (1.0-4.8) k/uL Lymphocytes # (Manual) 0.95 L (1.0-4.8) k/uL Monocytes # 1.2 H (0-1.0) k/uL Metamyelocytes # (Man) 0.19 H (0) k/uL Myelocytes # (Manual) 0.57 H (0) k/uL PT (9.0-12.0) sec INR (<1.2) Sodium 134 L (137-145) mmol/L Carbon Dioxide 20 L (22-30) mmol/L BUN 57 H (7-17) mg/dL Creatinine 1.26 H (0.52-1.04) mg/dL Glucose 122 H (74-99) mg/dL POC Glucose (mg/dL) (75-99) mg/dL Calcium 8.1 L (8.4-10.2) mg/dL Magnesium 2.4 H (1.6-2.3) mg/dL Crossmatch 10/27/18 Range/Units 05:01 WBC (3.8-10.6) k/uL RBC (3.80-5.40) m/uL Hgb (11.4-16.0) gm/dL Hct (34.0-46.0) % RDW (11.5-15.5) % Plt Count (150-450) k/uL Neutrophils # (1.3-7.7) k/uL Neutrophils # (Manual) (1.3-7.7) k/uL Lymphocytes # (1.0-4.8) k/uL Lymphocytes # (Manual) (1.0-4.8) k/uL Monocytes # (0-1.0) k/uL Metamyelocytes # (Man) (0) k/uL Myelocytes # (Manual) (0) k/uL PT 13.9 H (9.0-12.0) sec INR 1.4 H (<1.2) Sodium (137-145) mmol/L Carbon Dioxide (22-30) mmol/L BUN (7-17) mg/dL Creatinine (0.52-1.04) mg/dL Glucose (74-99) mg/dL POC Glucose (mg/dL) (75-99) mg/dL Calcium (8.4-10.2) mg/dL Magnesium (1.6-2.3) mg/dL Crossmatch Assessment and Plan (1) Acute GI hemorrhage Current Visit: Yes Status: Acute Code(s): K92.2 - GASTROINTESTINAL HEMORRHAGE, UNSPECIFIED SNOMED Code(s): 60930221 (2) Anemia Current Visit: Yes Status: Acute Code(s): D64.9 - ANEMIA, UNSPECIFIED SNOMED Code(s): 668544340 (3) Coumadin toxicity Current Visit: Yes Status: Acute Code(s): T45.511A - POISONING BY ANTICOAGULANTS, ACCIDENTAL, INIT SNOMED Code(s): 08121132 (4) Thrombocytosis Current Visit: Yes Status: Acute Code(s): D47.3 - ESSENTIAL (HEMORRHAGIC) THROMBOCYTHEMIA SNOMED Code(s): 6658435 (5) CHF (congestive heart failure) Current Visit: No Status: Acute Code(s): I50.9 - HEART FAILURE, UNSPECIFIED SNOMED Code(s): 02042559 Plan: Assessment and Recommendations: Normocytic Anemia: Secondary to GI Blood Loss anemia: - GI is following - Awaiting EGD until patient is more medically stable - Continue to hold AC therapy until no s/s bleeding - IV Iron is resonable and transfusion less than 7 - May have been precipitated with steroids and NSAIDS while on coumadin Hx: DVT/PE: - 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 - On hold for GI blood loss - Consider aspirin therapy if concern to re-introduce full anticoagulation Thrombocytosis: - Chronic patient has ran elevated palatelet count - Increased with active bleeding - Likley component of essential thrombocytosis, myeloproliferative - May consider aspirin ongoing if risk too high for AC therapy coumadin Coumadin Coagualopathy - INR was greater than 10 on admission - Reversed with Vitamin K - COntinue to monitor Physician Attest: I have completed the full history and physical and devloped the complete impression and plan, agree with above dictation, dictated as a scribe
--- NOTE | 2018-10-28 07:34 | PCN ---
PROCEDURE NOTE LEFT RADIAL ARTERIAL LINE PLACEMENT: Indications: Hemodynamic monitoring. A time-out was completed verifying correct patient, procedure, site, positioning, and implant(s) or special equipment if applicable. Wale's test was performed to ensure adequate perfusion. The patient's left wrist was prepped and draped in sterile fashion. 1% Lidocaine was used to anesthetize the area. An 18G Arrow arterial line was introduced into the radial artery. The catheter was threaded over the guide wire and the needle was removed with appropriate pulsatile blood return. Blood loss was minimal. The catheter was then sutured in place to the skin and a sterile dressing applied. Perfusion to the extremity distal to the point of catheter insertion was checked and found to be adequate. The patient tolerated the procedure well and there were no complications. Left radial arterial line was placed without immediate complications. Good waveform was noted, blood return, line was flushed, sutured in place. Sterile dressing was applied. MMODL / IJN: [id number] /
--- NOTE | 2018-11-04 12:12 | CDI ---
Documentation Clarification Form Date: 11/04/2018 11:56:38 AM From: Alix Thompson RN, CCDS Email: [email or web address] Admit Date: 10/26/2018 12:22:00 PM Patient Name: Angela Ernst Visit Number: [id number] Discharge Date: 10/27/2018 11:00:00 PM ATTENTION: The Clinical Documentation Specialists (CDI) and [facility] Coding Staff appreciate your assistance in clarifying documentation. Please respond to the clarification below the line at the bottom and electronically sign. The CDI & [facility] Coding staff will review the response and follow-up if needed. Please note: Queries are made part of the Legal Health Record. If you have any questions, please contact the author of this message via ITS. Dr. Yoni Sharma Chronic CHF with unknown ejection fraction is documented in the H&P. History/Risk Factors: DVT/PE multiple episodes, on long-term anticoagulation with Coumadin, chronic atrial fibrillation, coronary artery disease with history of stent placement, COPD, hypertension, hyperlipidemia, severe aortic stenosis, pulmonary fibrosis Clinical Indicators: GI bleed, symptomatic anemia, weakness, light headed, dizzy VS/Pulse OX: hypotensive, tachycardic, pox low of 75% BNP: 4110 Chest X Ray: mild cardiomegaly, suspect underlying effusion on the left Treatment: IV Levophed, IV Vasopressin, I&O's In your professional opinion, can you please clarify the type of chronic CHF if known? Systolic Heart Failure: Diastolic Heart Failure: Systolic & Diastolic Heart Failure: Unable to Determine Other, please specify Chronic CHF. Ejection fraction unknown. MTDD
--- NOTE | 2018-11-04 12:24 | CDI ---
Documentation Clarification Form Date: 11/04/2018 12:13:04 PM From: Alix Thompson RN, CCDS Email: [email or web address] Admit Date: 10/26/2018 12:22:00 PM Patient Name: Angela Ernst Visit Number: [id number] Discharge Date: 10/27/2018 11:00:00 PM ATTENTION: The Clinical Documentation Specialists (CDI) and [facility] Coding Staff appreciate your assistance in clarifying documentation. Please respond to the clarification below the line at the bottom and electronically sign. The CDI & [facility] Coding staff will review the response and follow-up if needed. Please note: Queries are made part of the Legal Health Record. If you have any questions, please contact the author of this message via ITS. Dr. Yoni Sharma Patient developed issues with low blood pressure is documented in the progress notes. Patient history/risk factors: DVT/PE multiple episodes on long-term anticoagulation with Coumadin, chronic atrial fibrillation, coronary artery disease with history of stent placement Clinical Indicators: GI bleed, Hgb 6.9, weak, lightheaded, dizzy, hypotensive, tachycardic, melena Vitals: BP low 60/40's, HR high 152 Treatment: IV Vasopressin, IV Levophed, IVF's, Midodrine, Art line placed for monitoring In your professional opinion, is the above clinically significant for? Hypovolemic Shock Cause Hemorrhagic Shock Cause Other, please specify Unable to determine Hypovolemic shock. Unable to determine the cause. MTDD
--- NOTE | 2018-11-04 12:39 | CDI ---
Documentation Clarification Form Date: 11/04/2018 12:25:09 PM From: Alix Thompson RN, CCDS Email: [email or web address] Admit Date: 10/26/2018 12:22:00 PM Patient Name: Angela Ernst Visit Number: [id number] Discharge Date: 10/27/2018 11:00:00 PM ATTENTION: The Clinical Documentation Specialists (CDI) and [facility] Coding Staff appreciate your assistance in clarifying documentation. Please respond to the clarification below the line at the bottom and electronically sign. The CDI & [facility] Coding staff will review the response and follow-up if needed. Please note: Queries are made part of the Legal Health Record. If you have any questions, please contact the author of this message via ITS. Dr. Yoni Sharma The patient's respiratory rate increased and ABG's were drawn. History/Risk Factors: DVT/PE multiple episodes on long-term anticoagulation with Coumadin, chronic atrial fibrillation, coronary artery disease with history of stent placement, COPD, hypertension, hyperlipidemia, severe aortic stenosis, pulmonary fibrosis Tobacco use: previous Clinical Indicators: RR 32, tachycardic Vital signs: RR 32, tachycardica Pulse oximetry: 75% on 3LNC Lung/Breathing assessment: clear on last documented assessment ABG: pH 7.19 pO2 91 pCO2 27 Lactate 9.6 Treatment: O2 3LNC Breathing tx; A/A prn In your professional opinion, can you please clarify if these findings signify one of the following conditions? Acuity Acute Chronic Acute on Chronic Specificity Respiratory Failure (further specify (if known)): With hypercapnia? (pCO2 >50 and pH <7.35) With hypoxia? (pO2 <60 mm Hg or SpO2 <91% on room air) Other Diagnosis, please specify Unable to determine Acute on chronic hypoxic respiratory failure MTDD
--- NOTE | 2018-11-04 12:46 | CDI ---
Documentation Clarification Form Date: 11/04/2018 12:39:56 PM From: Alix Thompson RN, CCDS Email: [email or web address] Admit Date: 10/26/2018 12:22:00 PM Patient Name: Angela Ernst Visit Number: [id number] Discharge Date: 10/27/2018 11:00:00 PM ATTENTION: The Clinical Documentation Specialists (CDI) and [facility] Coding Staff appreciate your assistance in clarifying documentation. Please respond to the clarification below the line at the bottom and electronically sign. The CDI & [facility] Coding staff will review the response and follow-up if needed. Please note: Queries are made part of the Legal Health Record. If you have any questions, please contact the author of this message via ITS. Dr. Yoni Sharma Pre-renal azotemia was documented in the progress note and enterprise resource planning consultant's note. History/Risk Factors: DVT/PE multiple episodes on long-term anticoagulation with Coumadin, chronic atrial fibrillation, coronary artery disease with history of stent placement, COPD, hypertension, hyperlipidemia, severe aortic stenosis, pulmonary fibrosis Clinical Indicators: melena with diagnosis of GI bleed, hypotension, tachycardic, weak, dizzy, lightheaded Current BUN/Cr/GFR: 62/1.26/39 Treatment: IVF's, IV Levophed, IV Vasopressin, Midodrine IVF: 0.9 NS In order to capture the severity of condition, please clarify if the condition signifies: Acute renal failure, Please specify etiology (if known): Cortical Necrosis Medullary Necrosis Tubular Necrosis Acute kidney injury Other, please specify Unable to determine Acute kidney injury possible [facility]
--- NOTE | 2018-11-04 12:50 | CDI ---
Documentation Clarification Form Date: 11/04/2018 12:46:31 PM From: Alix Thompson RN, CCDS Email: [email or web address] Admit Date: 10/26/2018 12:22:00 PM Patient Name: Angela Ernst Visit Number: [id number] Discharge Date: 10/27/2018 11:00:00 PM ATTENTION: The Clinical Documentation Specialists (CDI) and [facility] Coding Staff appreciate your assistance in clarifying documentation. Please respond to the clarification below the line at the bottom and electronically sign. The CDI & [facility] Coding staff will review the response and follow-up if needed. Please note: Queries are made part of the Legal Health Record. If you have any questions, please contact the author of this message via ITS. Dr. Yoni Sharma The patient has a sodium level of 132 History/Risk Factors: DVT/PE multiple episodes on long-term anticoagulation with Coumadin, chronic atrial fibrillation, coronary artery disease with history of stent placement, COPD, hypertension, hyperlipidemia, severe aortic stenosis, pulmonary fibrosis Clinical indicators: melena, dark tarry stools, weak, lightheaded, dizzy Treatment: IVF bolus x3. 0.9 NS @100/hr In order to capture the severity of condition, please clarify if the condition signifies: Hyponatremia Abnormal Lab Value Other condition, please specify Unable to determine Hypovolemic hyponatremia MTDD
--- NOTE | 2018-11-10 00:54 | P.DS ---
Providers Date of admission: 10/26/18 12:22 Expected date of discharge: 10/27/18 Attending physician: Yoni Sharma Consults: 10/26/18 12:22 Consult Physician Routine Consulting Provider: Amber Carcamo Consult Reason/Comments: Thrombocytosis, Coumadin toxicity Do you want consulting provider notified?: Yes Consult Physician Urgent Consulting Provider: Haile Mcelroy Consult Reason/Comments: Intensive care treatment Do you want consulting provider notified?: Already Contacted Consult Physician Urgent Consulting Provider: Shay Apodaca Consult Reason/Comments: GI bleed with anemia Do you want consulting provider notified?: Already Contacted Primary care physician: Irasema Chawla Hospital Course: Acute hypovolemic shock. Possible GI bleed Acute blood loss anemia secondary to GI bleed likely upper GI Symptomatic anemia Supratherapeutic INR level greater than 10 History of DVT/PE multiple episodes Chronic atrial fibrillation Coronary artery disease with history of stent placement Chronic CHF with ejection fraction unknown Hypertension Hyperlipidemia History of ND Osteoarthritis of multiple joints Right hip pain and is planning for orthopedic procedure Pulmonary fibrosis Severe aortic stenosis History of rheumatic fever as a child Legally blind due to macular degeneration Chronic low back pain History of right breast cancer with surgery/radiation/right breast lumpectomy Previous history of smoking DVT prophylaxis with SCDs Hospital course Patient is a 88-year-old female with a known history of DVT/PE multiple episodes on long-term anticoagulation with Coumadin, chronic atrial fibrillation, coronary artery disease with history of stent placement, COPD, hypertension, hyperlipidemia, severe aortic stenosis, pulmonary fibrosis, rheumatic fever as a child and legally blind came to ER with the complaints of dark-colored stools for the past 1 week. She is legally blind so she can't tell what color it is. Family members have been telling her that she does have black stool. . Patient has been having maroon-colored stools along with close bowel movements which has been present for the past 1 week. He has been feeling very weak. No complaints of chest pain. No complaints of shortness of breath. Does have some upper abdominal discomfort. No leg swelling. Denied any fever or chills. Patient does have nausea. No vomiting. No history of prior GI bleed. Patient does take Coumadin at home. Patient is following with orthopedic surgery for chronic right hip pain. Patient was on Medrol Dosepak about 3 weeks ago as also taking Celebrex about a week ago. Hemoglobin 8.5 and INR greater than 10, platelet count is than 1500, WBC 15.6, BUNs 62 creatinine 1.23, UA negative for infection. FOBT positive. Hemoglobin was around 12 during previous admission. Patient was given a dose of vitamin K in the ER. 10/27/2018 Patient was continued on IV hydration, Protonix IV twice a day, 40 milligrams and monitor H&H closely. Patient was given a dose of vitamin K in the ER. Hold Coumadin. Monitor INR level. INR is normalized today. Hold blood pressure medications due to hypotension. Continued with breathing treatments as needed.. Gastroenterology has seen the patient. Patient's hemoglobin level is 6.9 today. Patient was given blood transfusion with 1 unit of PRBC. Patient is currently DO NOT RESUSCITATE/DO NOT INTUBATE. Patient was also started on pressor support as well. Prognosis is poor at this time and patient's daughter was notified. Patient at 18:28 on 10/27/2018. Patient Condition at Discharge: Serious Plan - Discharge Summary Discharge Rx Participant: No New Discharge Prescriptions: No Action Montelukast [Singulair] 10 mg PO DAILY Albuterol Nebulized [Ventolin Nebulized] 2.5 mg INHALATION RT-Q6H PRN PRN Reason: Shortness Of Breath Nitroglycerin Sl Tabs [Nitrostat] 0.4 mg SUBLINGUAL Q5M PRN PRN Reason: Chest Pain Losartan Potassium [Cozaar] 100 mg PO DAILY Hydrochlorothiazide [Hydrodiuril] 25 mg PO DAILY Aspirin 81 mg PO DAILY Simvastatin [Zocor] 40 mg PO HS Warfarin Sodium [Coumadin] 4 mg PO HS #0 amLODIPine [Norvasc] 5 mg PO DAILY #30 tab Fluticasone Propionate [Flovent Hfa 220MCG] 2 puff INHALATION DAILY #1 inhaler Furosemide [Lasix] 20 mg PO DAILY Potassium Chloride [Klor-Con 10] 10 meq PO DAILY Celecoxib [CeleBREX] 200 mg PO DAILY@1200 Acetaminophen-Codeine 300-30mg [Tylenol w/codeine #3] 1 tab PO Q6H PRN PRN Reason: Pain Discharge Medication List Albuterol Nebulized [Ventolin Nebulized] 2.5 mg INHALATION RT-Q6H PRN 11/16/14 [History] Montelukast [Singulair] 10 mg PO DAILY 11/16/14 [History] Aspirin 81 mg PO DAILY 07/29/16 [History] Hydrochlorothiazide [Hydrodiuril] 25 mg PO DAILY 07/29/16 [History] Losartan Potassium [Cozaar] 100 mg PO DAILY 07/29/16 [History] Nitroglycerin Sl Tabs [Nitrostat] 0.4 mg SUBLINGUAL Q5M PRN 07/29/16 [History] Simvastatin [Zocor] 40 mg PO HS 07/29/16 [History] Warfarin Sodium [Coumadin] 4 mg PO HS #0 08/01/16 [Rx] amLODIPine [Norvasc] 5 mg PO DAILY #30 tab 02/10/17 [Rx] Fluticasone Propionate [Flovent Hfa 220MCG] 2 puff INHALATION DAILY #1 inhaler 04/09/17 [Rx] Furosemide [Lasix] 20 mg PO DAILY 05/19/17 [History] Potassium Chloride [Klor-Con 10] 10 meq PO DAILY 05/19/17 [History] Acetaminophen-Codeine 300-30mg [Tylenol w/codeine #3] 1 tab PO Q6H PRN 10/26/18 [History] Celecoxib [CeleBREX] 200 mg PO DAILY@1200 10/26/18 [History] Follow up Appointment(s)/Referral(s): Irasema Chawla DO [Primary Care Provider] - 1-2 days [facility], [NON-STAFF] - 1-2 Days Discharge Disposition: - Preliminary Cause of Preliminary Cause of : Acute GI bleed with possible hypovolemic shock.
== END 2018-10-27 23:00 | disposition expired | DRG 377 ==
LOC: EC 09:33 → 2SICU 12:22
PROVIDERS: ADMIT Internal Medicine; ATTEND Internal Medicine
PROC: 05HD33Z Insertion of Infusion Device into Right Cephalic Vein, Percutaneous Approach (ICD-10-PCS; principal; 2018-10-27 08:30)
DX: K92.1 Melena (principal); J96.21 Acute and chronic respiratory failure with hypoxia; D62 Acute posthemorrhagic anemia; E87.1 Hypo-osmolality and hyponatremia; N17.9 Acute kidney failure, unspecified; R57.1 Hypovolemic shock; G89.29 Other chronic pain; T45.515A Adverse effect of anticoagulants, initial encounter; E78.5 Hyperlipidemia, unspecified; H35.30 Unspecified macular degeneration; H54.8 Legal blindness, as defined in USA; I11.0 Hypertensive heart disease with heart failure; I25.10 Atherosclerotic heart disease of native coronary artery without angina pectoris; I25.2 Old myocardial infarction; Z86.711 Personal history of pulmonary embolism; Z86.718 Personal history of other venous thrombosis and embolism; Z79.01 Long term (current) use of anticoagulants; I35.0 Nonrheumatic aortic (valve) stenosis; I48.2 Chronic atrial fibrillation; I50.9 Heart failure, unspecified; J44.9 Chronic obstructive pulmonary disease, unspecified; J84.10 Pulmonary fibrosis, unspecified; M15.9 Polyosteoarthritis, unspecified; R79.1 Abnormal coagulation profile; Z66 Do not resuscitate; Z79.1 Long term (current) use of non-steroidal anti-inflammatories (NSAID); Z79.82 Long term (current) use of aspirin; Z79.899 Other long term (current) drug therapy; Z80.0 Family history of malignant neoplasm of digestive organs; Z82.3 Family history of stroke; Z85.3 Personal history of malignant neoplasm of breast; Z87.891 Personal history of nicotine dependence; Z90.49 Acquired absence of other specified parts of digestive tract; Z90.710 Acquired absence of both cervix and uterus; Z92.3 Personal history of irradiation; Z95.5 Presence of coronary angioplasty implant and graft; Z98.42 Cataract extraction status, left eye; Z98.41 Cataract extraction status, right eye; Z96.1 Presence of intraocular lens; Z96.653 Presence of artificial knee joint, bilateral; Z88.0 Allergy status to penicillin; Z91.041 Radiographic dye allergy status; Z83.511 Family history of glaucoma; Z87.01 Personal history of pneumonia (recurrent); D47.3 Essential (hemorrhagic) thrombocythemia
CPT/HCPCS: 36410; 36415; 71045; 80048; 80053; 81003; 82272; 82533; 82550; 82805; 83605; 83735; 83880; 84484; 85025; 85610; 85730; 86850; 86900; 86901; 86920; 87040; 96361; 96365; 96375; 99291